=== PATIENT | male | born 1955 | race Caucasian/White ===

== ENCOUNTER 2018-12-22 10:00 | Outpatient (RCR) | payer OTHER, SELFPAY | END 2018-12-29 09:46 | LOC: CAR 10:00 | PROVIDERS: Family Provider Family Medicine; PCP Family Medicine; Visit Provider Internal Medicine | DX: Z95.5 Presence of coronary angioplasty implant and graft (principal) | CPT/HCPCS: 93798 ==

== ENCOUNTER 2019-04-02 12:16 | Emergency (ER) | payer OTHER, SELFPAY ==
[2019-04-02 12:26] VITALS: BP 111/68; PULSE 57; RESP 18; TEMP 36.4; O2SAT 100; BMI 23.1
[2019-04-02 13:05] LABS: Bacteria Urine None Seen
--- NOTE | 2019-04-02 13:07 | ED_ITS ---
HPI - Male Genitourinary <Litzy Rashid PA-C - Last Filed: 04/02/19 14:22> General Chief complaint: Urogenital-Male Stated complaint: UTI Time Seen by Provider: 04/02/19 12:46 Source: patient Mode of arrival: ambulatory Limitations: no limitations History of Present Illness HPI Narrative: This 64-year-old male comes to ED secondary to concern for recurrent UTI. He states he has had many of these and this feels the same. 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 He states he has had mild burning with urination for the last 2-3 days, but has had increased burning since last night especially at the end of the urinary stream. He has also had increased frequency and urgency since yesterday. He states he has felt a little achy all over, had some low back pain 2 nights ago but resolved after he slept with his back support pillow. He has not had any fever, chills, sweats. He has not had any nausea or vomiting. No hematuria. Denies abdominal pain or other new complaints on systems review. Related Data Home Medications Medication Instructions Recorded Confirmed FENOFIBRATE (TRICOR) 145 mg PO Q DAY #0 09/06/07 GlipiZIDE (Glucotrol) 5 mg PO Q DAY #0 09/06/07 Metformin Hydrochloride 1,000 mg PO BID #0 09/06/07 (Glucophage) Simvastatin (Zocor) 40 mg PO Q DAY #0 09/06/07 Previous Rx's Medication Instructions Recorded phenazopyridine [Pyridium] 200 mg PO Q8H PRN 2 Days #6 tab 04/02/19 sulfamethoxazole-trimethoprim 1 tab PO BID 5 Days #10 tab 04/02/19 [Bactrim DS] Allergies Allergy/AdvReac Type Severity Reaction Status Date / Time INGREDIENT: NKDA - NO KNOWN Allergy Unknown Uncoded 01/27/18 12:05 DRUG ALLERGIES Review of Systems <Litzy Rashid PA-C - Last Filed: 04/02/19 14:22> Review of Systems ROS Unobtainable: All systems reviewed & are unremarkable except as noted in HPI and below PFSH <Litzy Rashid PA-C - Last Filed: 04/02/19 14:22> Medical History (Updated 04/02/19 @ 13:19 by Litzy Rashid PA-C) CAD (coronary artery disease) (Chronic) Diabetes mellitus, insulin dependent (IDDM), controlled (Chronic) Recurrent UTI (Chronic) Surgical History (Updated 04/02/19 @ 13:07 by Litzy Rashid PA-C) History of heart artery stent (Resolved) Urethral diverticulum (Resolved) Social History Smoking Status: Never smoker Social History Smoking Status: Never smoker Exam <Litzy Rashid PA-C - Last Filed: 04/02/19 14:22> Narrative Exam Narrative: GENERAL APPEARANCE: Patient sitting comfortably, in no distress. HEENT: PERRL, EOMI, normal oropharynx LUNGS: Clear to auscultation bilaterally. HEART: Rate and rhythm regular without murmur, normal S1 and S2, no S3 or S4. ABDOMEN: Soft, NT, ND, +BS x 4 quadrants, no CVAT. Initial Vital Signs Initial Vital Signs: Vital Signs Temperature 97.5 F L 04/02/19 12:26 Pulse Rate 57 L 04/02/19 12:26 Respiratory Rate 18 04/02/19 12:26 Blood Pressure 111/68 04/02/19 12:26 Pulse Oximetry 100 04/02/19 12:26 <Walter Najera DO - Last Filed: 04/02/19 14:48> Initial Vital Signs Initial Vital Signs: Vital Signs Temperature 97.5 F L 04/02/19 12:26 Pulse Rate 57 L 04/02/19 12:26 Respiratory Rate 18 04/02/19 12:26 Blood Pressure 111/68 04/02/19 12:26 Pulse Oximetry 100 04/02/19 12:26 Course <Litzy Rashid PA-C - Last Filed: 04/02/19 14:22> Orders Ordered: ED Orders 04/02/19 12:48 Urine Culture Stat Urine Microscopic Stat Vital Signs - 8 hr 04/02/19 12:26 04/02/19 13:30 Temperature 97.5 F L Pulse Rate 57 L 51 L Respiratory Rate 18 15 Blood Pressure 111/68 Blood Pressure [Right Arm] 125/76 Pulse Oximetry 100 100 <Walter Najera DO - Last Filed: 04/02/19 14:48> Orders Ordered: ED Orders 04/02/19 12:48 Urine Culture Stat Urine Microscopic Stat Vital Signs - 8 hr 04/02/19 12:26 04/02/19 13:30 Temperature 97.5 F L Pulse Rate 57 L 51 L Respiratory Rate 18 15 Blood Pressure 111/68 Blood Pressure [Right Arm] 125/76 Pulse Oximetry 100 100 MDM - Male Genitourinary <Litzy Rashid PA-C - Last Filed: 04/02/19 14:22> Lab Data Attestation: I reviewed the patient's lab results. Lab Results 04/02/19 Range/Units 12:48 Urine RBC 10-30/hpf H (0-5/HPF) Urine WBC 30-100/hpf H (0-5/HPF) Ur Transition Epith Cell 1-5/hpf (0-5/HPF) Urine Bacteria None seen (None) Ur Culture Indicated? Specimen cultured Urine Dip Bedside Urine Glucose 100 mg/dl Bedside Urine Bilirubin - Negative Bedside Urine Ketone - Negative Urine Specific [place] 1.015 Bedside Urine Occult Blood +++ Bedside Urine pH 6.5 Bedside Urine Protein +/- 15 Bedside Urine Urobilinogen +/- 1mg Bedside Urine Nitrite - Negative Bedside Urine Leukocytes + 70 Esterase <Walter Najera DO - Last Filed: 04/02/19 14:48> Lab Data Lab Results 04/02/19 Range/Units 12:48 Urine RBC 10-30/hpf H (0-5/HPF) Urine WBC 30-100/hpf H (0-5/HPF) Ur Transition Epith Cell 1-5/hpf (0-5/HPF) Urine Bacteria None seen (None) Ur Culture Indicated? Specimen cultured Urine Dip Bedside Urine Glucose 100 mg/dl Bedside Urine Bilirubin - Negative Bedside Urine Ketone - Negative Urine Specific [place] 1.015 Bedside Urine Occult Blood +++ Bedside Urine pH 6.5 Bedside Urine Protein +/- 15 Bedside Urine Urobilinogen +/- 1mg Bedside Urine Nitrite - Negative Bedside Urine Leukocytes + 70 Esterase Discharge Plan Departure Patient Disposition: Home Clinical Impression: Urinary tract infection Qualifiers: Urinary tract infection type: acute cystitis Hematuria presence: without hematuria Qualified Code(s): N30.00 - Acute cystitis without hematuria Discharge Date/Time: 04/02/19 13:57 Interventions: ED Discharge Assessment Last Done: 04/02/19 13:55 Instructions: DI for Urinary Tract Infection (UTI) Activity Restrictions/Additional Instructions: As we talked about, you should return if you have acutely worsening symptoms over the weekend, or new symptoms such as fever, vomiting, or new back pain. 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 You can use the urinary tract pain reliever for the next couple of days as needed. Please follow-up with your PCP or urologist if you're not feeling better in the next couple of days Prescriptions: New phenazopyridine [Pyridium] 200 mg tablet 200 mg PO Q8H PRN (Reason: urinary pain) 2 Days Qty: 6 RF: 0 sulfamethoxazole-trimethoprim [Bactrim DS] 800-160 mg tablet 1 tab PO BID 5 Days Qty: 10 RF: 0 Discontinued TETRACYCLINE (TETRACYCLINE HYDROCHLORIDE) 250 mg PO Q DAY Qty: 0 RF: 0 No Action Metformin Hydrochloride (Glucophage) 1,000 mg PO BID Qty: 0 RF: 0 FENOFIBRATE (TRICOR) 145 mg PO Q DAY Qty: 0 RF: 0 Simvastatin (Zocor) 40 mg PO Q DAY Qty: 0 RF: 0 GlipiZIDE (Glucotrol) 5 mg PO Q DAY Qty: 0 RF: 0 Referrals: Stephanie Gusman MD [Non-Staff] - Francoise Hanna MD [Primary Care Provider] - <Walter Najera DO - Last Filed: 04/02/19 14:48> Cosign ED Attending Sabiha Attestation: I was available for consultation during this patient's emergency department encounter
[2019-04-02 13:13] LABS: Culture Indicated Urine Specimen Cultured; RBC Urine 10-30/HPF (0-5/HPF); Transitional Epi Cells Urine 1-5/HPF (0-5/HPF); WBC Urine 30-100/HPF (0-5/HPF)
[2019-04-02 13:30] VITALS: BP 125/76; PULSE 51; RESP 15; O2SAT 100
== END 2019-04-02 13:57 | disposition home or self-care (01) ==
PROVIDERS: Emergency Provider Internal Medicine; PCP Family Medicine
DX: N30.00 Acute cystitis without hematuria (principal)
CPT/HCPCS: 81003; 81015; 87077; 87086; 87186; 99282; 99283

== ENCOUNTER → 2019-07-13 12:07 | Outpatient (CLI) | payer OTHER, SELFPAY ==
--- NOTE | 2019-07-13 | DI.US.S_ITS ---
PROCEDURE: US RENAL COMPLETE INDICATIONS: DIVERTICULUM OF BLADDER TECHNIQUE: Real-time scanning was performed of the kidneys and bladder, with image documentation. COMPARISON: CT, ABD/PELVIS W&WO CON (PN[facility]), 03/02/2015, 12:31. FINDINGS: Kidneys: Kidneys are normal in size. Right kidney measures 10.7 cm long; left kidney measures 11.4 cm long. Right renal cortical thickness is 1.4 cm; left renal cortical thickness is 1.4 cm. Renal cortical echotexture is normal. No hydronephrosis or nephrolithiasis. No suspicious solid mass lesions. Bladder: Pre-void bladder volume is 60 mL. Post-void residual is 5 mL. Pre-void images demonstrate no intraluminal masses or stones. On pre-void images, right and left ureteral jets are noted with color Doppler interrogation. (Of note, ureteral jets may not be detectable in up to 25% of cases due to insufficient differences in specific gravity between ureteral and bladder urine). Miscellaneous: No free pelvic fluid. IMPRESSION: Normal appearance of the kidneys. No definitive bladder diverticulum seen. Dictated by: Jack PAINTING Interpreted: Rose Sylvester MD on 07/13/2019 at 12:53 Approved by: Rose Sylvester M.D. on 07/13/2019 at 13:48
== END ==
PROVIDERS: Family Provider Physician Assistant Medical; PCP Physician Assistant Medical; Visit Provider Urology
DX: N32.3 Diverticulum of bladder (principal); N39.0 Urinary tract infection, site not specified; Z82.71 Family history of polycystic kidney
CPT/HCPCS: 76770

== ENCOUNTER → 2019-10-27 06:41 | Outpatient (CLI) | payer OTHER, SELFPAY ==
--- NOTE | 2019-10-27 | DI.ECHO.S_ITS ---
[facility] +---------+ : : [address] : [place] : : : : [id number] : : : : Phone: [phone] Echocardiogram Report + + :Name: LOLITA TERRELL Study Date: 10/27/2019 Height: 70 in : :[facility] Weight: 165 lb : : Gender: Male BSA: 1.9 m2 : :: 1955 Age: 64 yrs BP: 118/76 mmHg: :Reason For Study: DYSPNEA : :Ordering Physician: Barbara : :Aba Performed By: Duarte Rueda : :Referring: BARBARA LÓPEZ : + + Interpretation Summary Left ventricular systolic function is mild to moderately reduced with the ejection fraction visually estimated to be 40-45% with mild global hypokinesis that is more severe in the mid and distal inferior septum, distal inferior wall and inferoapex, and mid to distal inferoposterior wall but this all appears to be unchanged from the previous study. Left ventricular size is at the upper limits of normal with the estimated left ventricular end diastolic volume being 127 ml but likely unchanged compared to the previous study. Diastolic parameters suggest probable normal left ventricular diastolic function and normal filling pressures. The right ventricle is normal in size and function. Pulmonary artery pressures cannot be estimated because of the lack of a measurable TR jet velocity but the IVC suggests a CVP of around 3 mmHg. The left atrium is mildly dilated while right atrial size is normal. Both atria have significantly decreased in size since the prior echo exam. There is mild mitral regurgitation that is unchanged compared to the previous study. There is no other significant valvular heart disease. The ascending aorta is mild-moderately enlarged and measures slightly larger compared to the previous study. Procedure: A two-dimensional transthoracic echocardiogram with color flow and Doppler was performed. The study quality was technically adequate. Prior echo performed on 11/19/15. A contrast injection of Definity was performed to improve assessment of LV function. The patient was in a bradycardic rhythm during the exam. The heart rate ranged between 48-70 bpm during the study. Left Ventricle: Left ventricular size is at the upper limits of normal. The estimated left ventricular end diastolic volume is 127 ml. This is unchanged compared to the previous study. There is borderline concentric left ventricular hypertrophy. Left ventricular systolic function is mild to moderately reduced. The ejection fraction is estimated to be 40-45%. There is mild global hypokinesis of the left ventricle. That is more severe in the mid and distal inferior septum, distal inferior wall and inferoapex, and mid to distal inferoposterior wall but this all appears to be unchanged from the previous study. Diastolic parameters suggest probable normal left ventricular diastolic function and normal filling pressures. Right Ventricle: The right ventricle is normal in size and function. This is unchanged compared to the previous study. Atria: The left atrium is mildly dilated. Both atria have significantly decreased in size since the prior echo exam. Right atrial size is normal. The interatrial septum is intact with no evidence for an atrial septal defect. Mitral Valve: There is mild mitral annular calcification. The mitral valve leaflets appear mildly thickened, but open well. There is mild mitral regurgitation. This is unchanged compared to the previous study. Aortic Valve: The aortic valve is trileaflet. The aortic valve opens well. No aortic regurgitation is present. Tricuspid Valve: The tricuspid valve is normal in structure and function. There is trace tricuspid regurgitation. Pulmonary artery pressures cannot be estimated because of the lack of a measurable TR jet velocity but the IVC suggests a CVP of around 3 mmHg. Pulmonic Valve: The pulmonic valve is normal in structure and function. There is trace pulmonic regurgitation. There is no other significant valvular heart disease. Great Vessels: The aortic root is mildly dilated. The ascending aorta is mild-moderately enlarged. This is slightly larger compared to the previous study. The pulmonary artery is normal size. The IVC is of normal diameter and collapses greater than 50% with a sniff. This suggests a low right atrial pressure of 3 mm Hg. Pericardium/ Pleura There is no pericardial effusion. There is no pleural effusion. MMode/2D Measurements & Calculations LVIDd: 5.1 cm LVOT diam: 2.1 cm LVIDs: 3.8 cm Ao root diam: 3.7 cm FS: 25.1 % Aortic Jxn: 3.8 cm EPSS: 0.78 cm asc Aorta Diam: 4.2 cm IVSd: 0.96 cm LVPWd: 1.2 cm LV schwartz. diameter/BSA (cm/m^2): 2.6 LV sys. diameter/BSA (cm/m^2): 2.0 LA A2 area: 21.1 cm2 RA long axis: 4.7 cm LA A4 area: 21.9 cm2 RA area: 12.7 cm2 LA length (vol): 5.5 cm RA vol: 29.1 ml LA vol: 71.5 ml RA : 15.1 ml/m2 LA vol index: 37.2 ml/m2 TAPSE: 2.6 cm Doppler Measurements & Calculations Ao V2 max: 86.0 cm/sec LVOT Max Hermes: 67.3 cm/sec Ao V2 mean: 63.2 cm/sec LV V1 max P.8 mmHg Ao max P.0 mmHg LV V1 VTI: 16.2 cm Ao mean P.8 mmHg VENITA(I,D): 2.7 cm2 Ao V2 VTI: 21.0 cm VENITA(V,D): 2.8 cm2 sev ratio: 0.77 VENITA indexed to BSA (cm^2/m^2): 1.4 MV E max hermes: 81.5 cm/sec TR max hermes: 189.0 cm/sec MV A max hermes: 63.9 cm/sec TR max P.3 mmHg MV E/A: 1.3 PA V2 max: 75.9 cm/sec Med Peak E' Hermes: 9.3 cm/sec PA V2 mean: 57.9 cm/sec E/E' med: 8.8 PA mean P.5 mmHg Lat Peak E' Hermes: 7.5 cm/sec PA Accel Time: 0.16 sec E/E' lat: 10.9 E/e' average: 9.8 MV dec time: 0.22 sec SV(LVOT): 57.7 ml Reading Physician:SHERYL
== END ==
PROVIDERS: Family Provider Physician Assistant Medical; PCP Physician Assistant Medical; Visit Provider Specialist
DX: I34.0 Nonrheumatic mitral (valve) insufficiency (principal); I77.89 Other specified disorders of arteries and arterioles; R06.00 Dyspnea, unspecified
CPT/HCPCS: 93306; Q9957

== ENCOUNTER → 2021-02-26 16:28 | Outpatient (CLI) | payer MEDICARE, OTHER, SELFPAY ==
--- NOTE | 2021-02-26 | DI.RAD.S_ITS ---
PROCEDURE: XR HIP W PEL IF DONE LT 2V INDICATIONS: Left Hip Pain TECHNIQUE: AP pelvis with lateral view(s) of the left hip(s). COMPARISON: None. FINDINGS: Bones: No fractures or dislocations. Pelvic ring appears intact. No suspicious bony lesions. Mild bilateral hip osteoarthritis. Mild lumbar spondylosis and facet arthropathy. Soft tissues: Scattered vascular calcifications. IMPRESSION: Mild bilateral hip osteoarthritis Dictated by: Vini Long M.D. on 02/26/2021 at 17:37 Approved by: Vini Long M.D. on 02/26/2021 at 17:38
== END ==
PROVIDERS: Family Provider Physician Assistant Medical; PCP Internal Medicine; Referring Provider Internal Medicine; Visit Provider Internal Medicine
DX: M25.552 Pain in left hip (principal); M16.0 Bilateral primary osteoarthritis of hip; E78.5 Hyperlipidemia, unspecified; I25.10 Atherosclerotic heart disease of native coronary artery without angina pectoris
CPT/HCPCS: 73502; 80053; 80061; 84443; 85025

== ENCOUNTER → 2021-02-26 19:21 | Outpatient (ROUT) | payer MEDICARE, OTHER, SELFPAY ==
[2021-02-26 19:33] LABS: Add Manual Diff / Slide Review NO; Basophils Absolute Auto 0 /uL (0-100); Basophils Percent Auto 0.5 % (0-2); Eosinophils Absolute Auto 200 /uL (0-450); Eosinophils Percent Auto 3.9 % (2-4); Hematocrit 44.2 % (41-53); Hemoglobin 15.3 g/dL (13.5-17.5); Lymphocytes Absolute Auto 1100 /uL (1100-4500); Lymphocytes Percent Auto 18.2 % (25-40); Mean Corpuscular HGB Conc 34.5 % (30-36); Mean Corpuscular Hemoglobin 30.6 PG (26-34); Mean Corpuscular Volume 88.7 fL (80-100); Monocytes Absolute Auto 500 /uL (0-900); Monocytes Percent Auto 7.3 % (3-14); Neutrophils Absolute Auto 4400 /uL (1500-7000); Neutrophils Percent Auto 70.1 % (50-75); Platelet Count 183 X10^3/uL (150-400); Red Blood Cell Count 4.98 X10^6/uL (4.5-5.9); Red Cell Distribution Width 13.5 % (11.6-14.8); White Blood Cell Count 6.2 X10^3/uL (4.5-11.0)
[2021-02-26 19:49] LABS: Alanine Aminotransferase 30 IU/L (<50); Albumin 3.7 g/dL (3.5-5.0); Albumin Globulin Ratio 1.7 (1.0-2.8); Alkaline Phosphatase 60 U/L (38-126); Aspartate Aminotransferase 31 IU/L (17-59); BUN Creatinine Ratio 17.4 (6-22); Bilirubin Total 0.6 mg/dL (0.2-1.3); Blood Urea Nitrogen 15 mg/dL (9-20); Calcium 9.4 mg/dL (8.4-10.2); Carbon Dioxide 27 mmol/L (22-32); Chloride 99 mmol/L (98-107); Cholesterol 97 mg/dL (140-199); Estimated Glomerular Filt Rate > 60.0 mL/min (>60); Globulin 2.2 g/dL (1.7-4.1); Glucose 166 mg/dL (80-110); HDL Cholesterol 48 mg/dL (40-60); HEMOLYSIS < 15 (0-50); LDL Cholesterol Calculated 38 mg/dL (<100); Potassium 4.3 mmol/L (3.4-5.1); Sodium 133 mmol/L (137-145); Total Protein 5.9 g/dL (6.3-8.2); Triglycerides 55 mg/dL (35-150)
[2021-02-26 20:17] LABS: TSH w/ Reflex to FT4 3.63 uIU/mL (0.47-4.68)
== END ==
PROVIDERS: Family Provider Physician Assistant Medical; PCP Internal Medicine; Visit Provider Internal Medicine
DX: E78.2 Mixed hyperlipidemia (principal); I25.10 Atherosclerotic heart disease of native coronary artery without angina pectoris
CPT/HCPCS: 80053; 80061; 84443; 85025

== ENCOUNTER → 2022-09-02 15:33 | Outpatient (CLI) | payer MEDICARE, OTHER, SELFPAY ==
--- NOTE | 2022-09-02 15:36 | DI.RAD.S_ITS ---
PROCEDURE: XR WRIST RT MIN 3V INDICATIONS: right wrist pain TECHNIQUE: 4 views of the wrist were acquired. COMPARISON: None. FINDINGS: Bones: No fractures or dislocations. No suspicious bony lesions. Scaphoid view: Scaphoid is intact. Soft tissues: No suspicious soft tissue calcifications. IMPRESSION: No fracture. No acute osseous lesion. If symptoms and/or clinical suspicion for pathology persists, further assessment with repeat radiographs (7-10 days) or advanced imaging (e.g. CT, MRI or bone scan) should be considered. Dictated by: Barby Parks MD, PhD on 09/02/2022 at 16:50 Approved by: Barby Parks MD, PhD on 09/02/2022 at 16:50
== END ==
PROVIDERS: Family Provider Physician Assistant Medical; PCP Physician Assistant; Referring Provider Physician Assistant; Visit Provider Physician Assistant
DX: M25.531 Pain in right wrist (principal)
CPT/HCPCS: 73110

== ENCOUNTER 2022-09-08 13:34 | Emergency (ER) | payer MEDICARE, OTHER, SELFPAY ==
[2022-09-08] VITALS (13 sets, daily range): BP systolic 119–140; BP diastolic 62–77; PULSE 69–90; RESP 12–23; TEMP 36.9; O2SAT 99–100
--- NOTE | 2022-09-08 13:36 | DI.RAD.S_ITS ---
PROCEDURE: XR CHEST 1V INDICATIONS: chest pain TECHNIQUE: One view of the chest was acquired. COMPARISON: [facility], , CHEST 1 VIEW, 09/06/2007, 9:22. FINDINGS: Surgical changes and devices: None. Lungs and pleura: Lungs are clear. No pleural effusions or pneumothorax. Mediastinum: Mediastinal contours appear normal. Heart size is normal. Bones and chest wall: No suspicious bony lesions. Overlying soft tissues appear unremarkable. IMPRESSION: No acute pulmonary process. Dictated by: Rose Sylvester M.D. on 09/08/2022 at 14:35 Approved by: Rose Sylvester M.D. on 09/08/2022 at 14:35
[2022-09-08 14:19] LABS: INR 1.1 (0.9-1.3); Prothrombin Time 12.9 SECONDS (10.1-12.7)
[2022-09-08 14:22] LABS: PTT Partial Thromboplastin Tim 28 SECONDS (26-36)
[2022-09-08 14:26] LABS: Add Manual Diff / Slide Review NO; Basophils Absolute Auto 0 /uL (0-100); Basophils Percent Auto 0.4 % (0-2); Eosinophils Absolute Auto 200 /uL (0-450); Eosinophils Percent Auto 4.1 % (2-4); Hematocrit 35.1 % (41-53); Hemoglobin 11.5 g/dL (13.5-17.5); Lymphocytes Absolute Auto 500 /uL (1100-4500); Lymphocytes Percent Auto 11.2 % (25-40); Mean Corpuscular HGB Conc 32.7 % (30-36); Mean Corpuscular Hemoglobin 25.7 PG (26-34); Mean Corpuscular Volume 78.5 fL (80-100); Monocytes Absolute Auto 400 /uL (0-900); Monocytes Percent Auto 8.7 % (3-14); Neutrophils Absolute Auto 3200 /uL (1500-7000); Neutrophils Percent Auto 75.6 % (50-75); Platelet Count 220 X10^3/uL (150-400); Red Blood Cell Count 4.46 X10^6/uL (4.5-5.9); White Blood Cell Count 4.2 X10^3/uL (4.5-11.0)
[2022-09-08 15:02] LABS: Influenza A - CEPHEID Flu A NEGATIVE (NEGATIVE); Influenza B - CEPHEID Flu B NEGATIVE (NEGATIVE); Respiratory Syncytial Virus Negative (Negative)
[2022-09-08 15:05] LABS: COVID-19 CEPHEID 4-PLEX PCR Negative (Negative)
--- NOTE | 2022-09-08 15:16 | ED_ITS ---
HPI - Syncope General Chief Complaint: Syncope Stated Complaint: dizzy, low BP, diabetic Time Seen by Provider: 09/08/22 15:16 History of Present Illness HPI narrative: This is a 67-year-old male with coronary artery disease with 5 cardiac stents, 2 stents in his lower extremities, diabetes, hypertension, dyslipidemia with recent 13 day hospitalization at [place] after having medical misadventure and having perforated his vessels in his lower extremity causing significant bleeding and resulting in bilateral femoral artery endarterectomy, patch angioplasties, left popliteal and tibial embolectomy, left superficial femoral artery to below knee popliteal artery bypass with ipsilateral 1st great saphenous vein and left lower leg 4 compartment fasciotomy patient also had right common femoral artery and perforation of the popliteal artery of his left lower extremity and repair on the right thigh of his vasculature. Patient was discharged home to rehab and has been home for a couple weeks. He had his COVID and flu shot on Thursday this weekend. He states today when physical therapy was doing their evaluation they checked his vitals he was 92 systolic while seated and stood him up and he was 82 systolic and became dizzy. Patient did not have any syncope he has felt a little bit dizzy when he is walking today but has not had felt like he is going to pass out. This is new for him. Denies fevers or chills, no chest pain or shortness of breath, no nausea or vomiting, no diarrhea or constipation denies any bright red blood or black stools. He is noticed that he needs to get up multiple times at night to urinate and sometimes has hard time making it to the bathroom. He states this has been since he had a catheter in place during his hospitalization. He denies any skin changes he states his incisions have been healing well. Patient states no new medication c hanges since his discharge. No new surgeries since his hospitalizations his stents in his legs are from prior and not his most recent hospitalization. Related Data Home Medications Medication Instructions Recorded Confirmed FENOFIBRATE (TRICOR) 145 mg PO Q DAY ##0 09/06/07 10/06/21 GlipiZIDE (Glucotrol) 5 mg PO Q DAY ##0 09/06/07 10/06/21 Metformin Hydrochloride 1,000 mg PO BID ##0 09/06/07 10/06/21 (Glucophage) Simvastatin (Zocor) 40 mg PO Q DAY ##0 09/06/07 10/06/21 cyanocobalamin (vitamin B-12) 1,000 mcg PO DAILY 10/06/21 10/06/21 1,000 mcg capsule nitroglycerin 0.4 mg sublingual 0.4 mg sublingual Q5M PRN 10/06/21 10/06/21 tablet (Nitrostat) Previous Rx's Medication Instructions Recorded terbinafine HCl 1 % topical cream 1 applic topical BID rash 2 weeks 10/06/21 #30 grams Allergies Allergy/AdvReac Type Severity Reaction Status Date / Time levofloxacin AdvReac Severe Hallucinati Verified 10/06/21 15:22 ng clindamycin AdvReac Intermediate Rash Verified 10/06/21 15:22 spironolactone AdvReac Intermediate rash Verified 10/06/21 15:22 memantine AdvReac liver Verified 10/06/21 15:22 function abnormalities INGREDIENT: NKDA - NO KNOWN Allergy Unknown Uncoded 10/06/21 15:22 DRUG ALLERGIES Review of Systems Review of Systems ROS Unobtainable: All systems reviewed & are unremarkable except as noted in HPI and below Patient History Medical History CAD (coronary artery disease) Diabetes mellitus, insulin dependent (IDDM), controlled Recurrent UTI Surgical History History of heart artery stent Urethral diverticulum Social History Smoking Status: Never smoker Smoking Status: Never smoker alcohol intake frequency: a few times a week Substance Use Type: does not use Exam Narrative Exam Narrative: GENERAL: Alert and oriented x three, mild distress. HEENT: Head normocephalic, atraumatic, EOMI, pupils reactive, face symmetric, moist mucous membranes NECK: Supple, full range of motion CARDIOVASCULAR: Regular rate and rhythm without murmurs, rubs or gallops. RESPIRATORY: Breath sounds equal bilaterally, no wheezes rales or rhonchi. ABDOMEN: Soft, nontender. Not distended. Normoactive bowel sounds all 4 quadrants. No guarding or rebound, rigidity, no mass : No CVA tenderness EXTREMITIES: Normal range of motion, no clubbing or edema. Neurovascularly intact. Patient has left healed incision down to the calf muscle which is clean dry and intact without any signs of infection, patient has right upper thigh incision/inguinal which is clean dry and intact without any signs of infection. Patient has 5/5 muscle strength, normal sensation to light touch. Full range of motion. Patient ambulate in the room on around the department without issue. NEUROLOGICAL: Cranial nerves II through XII grossly intact. Moving all extremities SKIN: Warm, dry, no petechiae, no rashes or lesions. Initial Vital Signs Initial Vital Signs: Vital Signs Pulse Rate 83 09/08/22 13:52 Respiratory Rate 19 09/08/22 13:52 Pulse Oximetry 100 09/08/22 13:52 Course Orders Ordered: ED Orders 09/08/22 13:36 XR chest 1V Stat 09/08/22 13:54 BNP [NT-proBNP (BNP-Adult 18+)] Stat Complete Blood Count AUTO DIFF Stat Comprehensive Metabolic Panel Stat Lipase Stat Magnesium Stat Partial Thromboplastin Time Stat Prothrombin Time INR Stat Troponin & CK Cardiac Panel Stat 09/08/22 14:00 Covid-19 + FLU A/B + RSV - PCR Stat 09/08/22 14:01 EKG-12 Lead Stat 09/08/22 15:56 Urine Microscopic Stat Vital Signs Vital signs: Vital Signs - 8 hr 09/08/22 14:05 09/08/22 13:52 09/08/22 13:57 Temperature 98.4 F Pulse Rate 84 83 82 Respiratory Rate 18 19 23 Blood Pressure 128/70 Pulse Oximetry 100 100 100 Oxygen Delivery Method Room Air 09/08/22 13:57 09/08/22 14:00 09/08/22 14:00 Temperature Pulse Rate 84 Respiratory Rate 12 Blood Pressure 125/74 136/76 Pulse Oximetry 100 Oxygen Delivery Method 09/08/22 14:15 09/08/22 14:15 09/08/22 14:30 Temperature Pulse Rate 77 Respiratory Rate Blood Pressure 132/69 140/77 Pulse Oximetry 100 Oxygen Delivery Method 09/08/22 14:30 09/08/22 16:00 09/08/22 14:45 Temperature Pulse Rate 72 90 78 Respiratory Rate 13 16 18 Blood Pressure 119/77 Pulse Oximetry 100 99 100 Oxygen Delivery Method Room Air 09/08/22 14:45 09/08/22 15:00 09/08/22 15:00 Temperature Pulse Rate 71 Respiratory Rate 15 Blood Pressure 128/62 119/68 Pulse Oximetry 100 Oxygen Delivery Method 09/08/22 15:15 09/08/22 15:15 09/08/22 15:30 Temperature Pulse Rate 69 Respiratory Rate 21 Blood Pressure 120/70 133/69 Pulse Oximetry 100 Oxygen Delivery Method 09/08/22 15:30 09/08/22 15:45 09/08/22 15:45 Temperature Pulse Rate 81 71 Respiratory Rate 15 Blood Pressure 121/67 Pulse Oximetry 99 100 Oxygen Delivery Method 09/08/22 15:58 09/08/22 15:58 Temperature Pulse Rate 89 Respiratory Rate Blood Pressure 119/77 Pulse Oximetry Oxygen Delivery Method MDM - Syncope Lab Data Result diagrams: 09/08/22 13:54 09/08/22 13:54 Labs: Lab Results 09/08/22 09/08/22 09/08/22 Range/Units 13:54 13:54 13:54 WBC 4.2 L (4.5-11.0) X10^3/uL RBC 4.46 L (4.5-5.9) X10^6/uL Hgb 11.5 L (13.5-17.5) g/dL Hct 35.1 L (41-53) % MCV 78.5 L (80-100) fL MCH 25.7 L (26-34) PG MCHC 32.7 (30-36) % RDW 17.0 H (11.6-14.8) % Plt Count 220 (150-400) X10^3/uL Neut % (Auto) 75.6 H (50-75) % Lymph % (Auto) 11.2 L (25-40) % Griggs % (Auto) 8.7 (3-14) % Eos % (Auto) 4.1 H (2-4) % Baso % (Auto) 0.4 (0-2) % Neut # (Auto) 3200 (9815-9523) /uL Lymph # (Auto) 500 L (7866-6159) /uL Griggs # (Auto) 400 (0-900) /uL Eos # (Auto) 200 (0-450) /uL Baso # (Auto) 0 (0-100) /uL PT 12.9 H (10.1-12.7) SECONDS INR 1.1 (0.9-1.3) APTT 28 (26-36) SECONDS Sodium 135 L (137-145) mmol/L Potassium 3.8 (3.4-5.1) mmol/L Chloride 98 (98-107) mmol/L Carbon Dioxide 29 (22-32) mmol/L BUN 14 (9-20) mg/dL Creatinine 0.81 (0.66-1.25) mg/dL Estimated GFR > 60 (>60) mL/min BUN/Creatinine Ratio 17.3 (6-22) Glucose 126 H (80-110) mg/dL Calcium 8.4 (8.4-10.2) mg/dL Magnesium 1.9 (1.6-2.3) mg/dL Total Bilirubin 0.3 (0.2-1.3) mg/dL AST 26 (17-59) IU/L ALT 21 (<50) IU/L Alkaline Phosphatase 55 (38-126) U/L Total Creatine Kinase 26 L (55-170) U/L CK-MB (CK-2) TNP CK-MB (CK-2) Rel Index TNP Troponin I < 0.012 (0.01-0.034) ng/mL NT-Pro-B Natriuret Pep 142 H (<125) pg/mL Total Protein 5.5 L (6.3-8.2) g/dL Albumin 3.3 L (3.5-5.0) g/dL Globulin 2.2 (1.7-4.1) g/dL Albumin/Globulin Ratio 1.5 (1.0-2.8) Lipase 250 (23-300) U/L Urine RBC (0-5/HPF) Urine WBC (0-5/HPF) Ur Squamous Epith Cells (0-5/HPF) Urine Bacteria (None) Ur Culture Indicated? SARS-CoV-2 (PCR) (Negative) Influenza A (RT-PCR) (NEGATIVE) Influenza B (RT-PCR) (NEGATIVE) RSV (PCR) (Negative) 09/08/22 09/08/22 Range/Units 14:00 15:56 WBC (4.5-11.0) X10^3/uL RBC (4.5-5.9) X10^6/uL Hgb (13.5-17.5) g/dL Hct (41-53) % MCV (80-100) fL MCH (26-34) PG MCHC (30-36) % RDW (11.6-14.8) % Plt Count (150-400) X10^3/uL Neut % (Auto) (50-75) % Lymph % (Auto) (25-40) % Griggs % (Auto) (3-14) % Eos % (Auto) (2-4) % Baso % (Auto) (0-2) % Neut # (Auto) (5377-2972) /uL Lymph # (Auto) (2036-5366) /uL Griggs # (Auto) (0-900) /uL Eos # (Auto) (0-450) /uL Baso # (Auto) (0-100) /uL PT (10.1-12.7) SECONDS INR (0.9-1.3) APTT (26-36) SECONDS Sodium (137-145) mmol/L Potassium (3.4-5.1) mmol/L Chloride (98-107) mmol/L Carbon Dioxide (22-32) mmol/L BUN (9-20) mg/dL Creatinine (0.66-1.25) mg/dL Estimated GFR (>60) mL/min BUN/Creatinine Ratio (6-22) Glucose (80-110) mg/dL Calcium (8.4-10.2) mg/dL Magnesium (1.6-2.3) mg/dL Total Bilirubin (0.2-1.3) mg/dL AST (17-59) IU/L ALT (<50) IU/L Alkaline Phosphatase (38-126) U/L Total Creatine Kinase (55-170) U/L CK-MB (CK-2) CK-MB (CK-2) Rel Index Troponin I (0.01-0.034) ng/mL NT-Pro-B Natriuret Pep (<125) pg/mL Total Protein (6.3-8.2) g/dL Albumin (3.5-5.0) g/dL Globulin (1.7-4.1) g/dL Albumin/Globulin Ratio (1.0-2.8) Lipase (23-300) U/L Urine RBC None seen (0-5/HPF) Urine WBC 0-1/hpf (0-5/HPF) Ur Squamous Epith Cells 0-1 /hpf (0-5/HPF) Urine Bacteria None seen (None) Ur Culture Indicated? Cult not indicated SARS-CoV-2 (PCR) Negative (Negative) Influenza A (RT-PCR) Flu a negative (NEGATIVE) Influenza B (RT-PCR) Flu b negative (NEGATIVE) RSV (PCR) Negative (Negative) Urine Dip Bedside Urine Glucose 1000 mg/dl Bedside Urine Bilirubin - Negative Bedside Urine Ketone - Negative Urine Specific Dale 1.010 Bedside Urine Occult Blood - Negative Bedside Urine pH 5.5 Bedside Urine Protein - Negative Bedside Urine Urobilinogen - Negative Bedside Urine Nitrite - Negative Bedside Urine Leukocytes - Negative Esterase Imaging Data Chest x-ray: Radiologist's Impression: Sunny Lock??67??M??1955 ? Allergy/Adv: levofloxacin, clindamycin, spironolactone, memantine, [INGREDIENT: NKDA - NO KNOWN DRUG ALLERGIES] (More??) Close Chest X-Ray (Signed) Rose Sylvester - 09/08/22 Wrist X-Ray (Signed) Barby Parks - 09/02/22 Hip X-Ray (Signed) Vini Long - 02/26/21 Hip X-Ray (Cancelled) 02/26/21 Echocardiogram Ultrasound (Signed) Hitesh Troncoso - 10/27/19 Renal Ultrasound (Signed) Rose Sylvester - 07/13/19 [place] [address] XRay Report Signed Patient: Sunny Lock MR#: [id number] : 1955 Acct:[id number] Age/Sex: 67 / M Date of Service: 09/08/22 Loc: ED Accession Number: [id number] ?? Procedure: XR chest 1V Ordering Provider: Estrellita White D.O. PROCEDURE:? XR CHEST 1V ? INDICATIONS:? chest pain ? TECHNIQUE:? One view of the chest was acquired.? ? COMPARISON:? [facility], CHEST 1 VIEW, 09/06/2007, 9:22. ? FINDINGS:? ? Surgical changes and devices:? None.? ? Lungs and pleura:? Lungs are clear.? No pleural effusions or pneumothorax.? ? Mediastinum:? Mediastinal contours appear normal.? Heart size is normal.? ? Bones and chest wall:? No suspicious bony lesions.? Overlying soft tissues appear unremarkable.? ? IMPRESSION:? No acute pulmonary process. ? ? Dictated by: Rose Sylvester M.D. on 09/08/2022 at 14:35 ? ? Approved by: Rose Sylvester M.D. on 09/08/2022 at 14:35?? ECG Data Attestation: I personally reviewed and interpreted this ECG as follows: Interpretation: Sinus rhythm rate of 78 [place] 146 QRS of 138 QTC of 478. Right bundle-branch block possible MDM Narrative Medical decision making narrative: This is a 67-year-old male who presents with dizziness, he saw PT at home they noted his blood pressure was 90 seated and 82 standing, he felt dizzy and was sent here. His labs show anemia but he had a significant surgery on 07/25/2022 for complications from perforation of his bilateral femoral arteries and popliteal that resulted in fasciotomy and left femoral artery to below-knee popliteal artery bypass, patient does not appear septic today he received fluids and blood pressures have been appropriate. Did get his COVID/influenza shot about 2 days ago. He has been afebrile, he does not have any changes consistent with pulmonary emboli, infection, his labs show white count of 4.2 patient's white count was 16 on 07/25/2022, hemoglobin of 11 and was 10.5 on 07/25/2022 after what appears to be transfusion it was 7.8 prior to transfusion on 07/25/2022 and platelets of 220, sodium is 135, normal electrolytes and renal function with negative trope, BNP of 142 and no LFT changes. Patient is ambulating department without any hypotension, he feels improved. Urine did not show clear infection nor did urine micro although he had some nocturia that is new after having Coker catheter in the hospital. I feel patient is appropriate for discharge home at this time, return precautions were given. Discharge Plan Departure Patient Disposition: Home Clinical Impression: Dizziness Instructions: DI for Dizziness-Nonvertigo Activity Restrictions/Additional Instructions: Please follow-up with your physician for recheck. Your labs show anemia but no clear changes otherwise. Your hemoglobin today is 11.5 Please return for recurrent lightheadedness, passing out, new chest pain or shortness of breath, new swelling in your extremities, fevers, signs of infection at your wounds or worsening urinary symptoms. Prescriptions: No Action nitroglycerin [Nitrostat] 0.4 mg tablet, sublingual 0.4 mg sublingual Q5M PRN Rx Instructions: do not exceed 3 doses per episode terbinafine HCl 1 % cream 1 applic topical BID 14 Days Qty: 30 1RF Rx Instructions: Use for 2 weeks or until rash resolves. cyanocobalamin (vitamin B-12) 1,000 mcg capsule 1,000 mcg PO DAILY Metformin Hydrochloride (Glucophage) 1,000 mg PO BID Qty: 0 FENOFIBRATE (TRICOR) 145 mg PO Q DAY Qty: 0 Simvastatin (Zocor) 40 mg PO Q DAY Qty: 0 GlipiZIDE (Glucotrol) 5 mg PO Q DAY Qty: 0 Referrals: Suze Reyes PA-C [Primary Care Provider] - Visit Report Forms: Patient Portal/API
[2022-09-08 15:24] LABS: HEMOLYSIS < 15 (0-50)
[2022-09-08 15:34] LABS: Alanine Aminotransferase 21 IU/L (<50); Albumin 3.3 g/dL (3.5-5.0); Albumin Globulin Ratio 1.5 (1.0-2.8); Alkaline Phosphatase 55 U/L (38-126); Aspartate Aminotransferase 26 IU/L (17-59); BUN Creatinine Ratio 17.3 (6-22); Bilirubin Total 0.3 mg/dL (0.2-1.3); Blood Urea Nitrogen 14 mg/dL (9-20); Calcium 8.4 mg/dL (8.4-10.2); Carbon Dioxide 29 mmol/L (22-32); Chloride 98 mmol/L (98-107); Creatine Kinase 26 U/L (55-170); Estimated Glomerular Filt Rate > 60 mL/min (>60); Globulin 2.2 g/dL (1.7-4.1); Glucose 126 mg/dL (80-110); Lipase 250 U/L (23-300); Magnesium 1.9 mg/dL (1.6-2.3); Potassium 3.8 mmol/L (3.4-5.1); Sodium 135 mmol/L (137-145); Total Protein 5.5 g/dL (6.3-8.2)
[2022-09-08 15:41] LABS: NT-proBNP (BNP-Adult 18+) 142 pg/mL (<125); Troponin I < 0.012 ng/mL (0.01-0.034)
--- NOTE | 2022-09-08 16:06 | PC.NURSE ---
patient ambulated well, complains of leg pain which is at a normal level due to his recent surgery and recovery.
[2022-09-08 16:22] LABS: Bacteria Urine None Seen; Culture Indicated Urine Cult Not Indicated; RBC Urine None Seen (0-5/HPF); Squamous Epithelial Cell Urine 0-1 /HPF (0-5/HPF); WBC Urine 0-1/HPF (0-5/HPF)
== END 2022-09-08 16:35 | disposition home or self-care (01) ==
PROVIDERS: Emergency Provider Emergency Medicine; Family Provider Physician Assistant Medical; PCP Physician Assistant
DX: R42 Dizziness and giddiness (principal); R07.9 Chest pain, unspecified; I95.9 Hypotension, unspecified; Z20.822 Contact with and (suspected) exposure to COVID-19
CPT/HCPCS: 0241U; 36415; 71045; 80053; 81003; 81015; 82550; 83690; 83735; 83880; 84484; 85025; 85610; 85730; 93005; 99284

== ENCOUNTER → 2022-11-24 09:40 | Outpatient (CLI) | payer MEDICARE, OTHER, SELFPAY ==
[2022-11-24 10:56] LABS: Add Manual Diff / Slide Review NO; Basophils Absolute Auto 0 /uL (0-100); Basophils Percent Auto 0.5 % (0-2); Eosinophils Absolute Auto 200 /uL (0-450); Eosinophils Percent Auto 2.6 % (2-4); Hematocrit 39.5 % (41-53); Hemoglobin 12.9 g/dL (13.5-17.5); Lymphocytes Absolute Auto 1200 /uL (1100-4500); Lymphocytes Percent Auto 17.8 % (25-40); Mean Corpuscular HGB Conc 32.6 % (30-36); Mean Corpuscular Hemoglobin 23.7 PG (26-34); Mean Corpuscular Volume 72.8 fL (80-100); Monocytes Absolute Auto 400 /uL (0-900); Monocytes Percent Auto 6.2 % (3-14); Neutrophils Absolute Auto 4800 /uL (1500-7000); Neutrophils Percent Auto 72.9 % (50-75); Platelet Count 212 X10^3/uL (150-400); Red Blood Cell Count 5.43 X10^6/uL (4.5-5.9); Red Cell Distribution Width 20.6 % (11.6-14.8); White Blood Cell Count 6.6 X10^3/uL (4.5-11.0)
[2022-11-24 11:33] LABS: HEMOLYSIS < 15 (0-50); Iron 62 ug/dL (49-181)
[2022-11-24 11:45] LABS: Percent Iron Saturation 17 % (20-50); Total Iron Binding Capacity 373 ug/dL (261-462)
[2022-11-24 11:46] LABS: Transferrin 277 mg/dL (206-381)
[2022-11-24 12:09] LABS: Ferritin 9 ng/mL (18-464)
[2022-11-24 12:40] LABS: Hypochromasia 1+; Microcytosis 1+
== END ==
PROVIDERS: Family Provider Physician Assistant Medical; PCP Family Medicine; Referring Provider Family Medicine; Visit Provider Family Medicine
DX: D50.9 Iron deficiency anemia, unspecified (principal)
CPT/HCPCS: 36415; 82728; 83540; 83550; 85025

== ENCOUNTER 2023-01-03 16:57 | Emergency (ER) | payer MEDICARE, OTHER, SELFPAY ==
[2023-01-03] VITALS (21 sets, daily range): BP systolic 110–136; BP diastolic 56–72; PULSE 46–104; RESP 16; TEMP 36.4; O2SAT 96–100; BMI 22.2
[2023-01-03 17:40] LABS: Amorphous Sediment Urine 1+; Bacteria Urine Few (2-10); Mucus Urine 1+ (Negative); RBC Urine 0-1/HPF (0-5/HPF); Squamous Epithelial Cell Urine 0-1 /HPF (0-5/HPF); WBC Urine 10-30/HPF (0-5/HPF)
--- NOTE | 2023-01-03 19:02 | ED.MALEGU ---
HPI - Male Genitourinary General Chief complaint: Urogenital-Male Stated complaint: uti/cannot control bowels/urine x3 days Time Seen by Provider: 01/03/23 17:28 History of Present Illness HPI Narrative: 67-year-old male nonsmoker with rather extensive medical history including peripheral vascular disease, coronary artery disease, hypertension, hyperlipidemia, diabetes presents with his in the chief complaint of a few days of dysuria, frequency and urgency with the occasional sensation that he has lost control of his bladder, though admittedly it is unclear if he is lost control or just has significant urgency. Additionally he is had loose stools off and on for the past few days. He is not dizzy nor weak or lightheaded but does feel somewhat fatigued. He has had nausea but denies any vomiting. He denies chest pain or shortness of breath. He denies abdominal pain. He does state that ever since a complex vascular surgery he had last year he has lost about 20 lb. He denies any recent antibiotics, international travel, bad food or exposure to other ill persons Related Data Home Medications Medication Instructions Recorded Confirmed cyanocobalamin (vitamin B-12) 1,000 mcg PO DAILY 10/06/21 11/24/22 1,000 mcg capsule nitroglycerin 0.4 mg sublingual 0.4 mg sublingual Q5M PRN 10/06/21 11/24/22 tablet (Nitrostat) aspirin 81 mg tablet,delayed 81 mg PO DAILY 11/05/22 11/24/22 release (Adult Aspirin Regimen) blood sugar diagnostic (Contour 11/05/22 11/24/22 Next Test Strips) cholecalciferol (vitamin D3) 25 50 mcg PO DAILY 11/05/22 11/24/22 mcg (1,000 unit) capsule (Vitamin D3) cilostazol 50 mg tablet 100 mg PO QAM 11/05/22 11/24/22 clopidogrel 75 mg tablet 75 mg PO DAILY 11/05/22 11/24/22 empagliflozin 10 mg tablet 10 mg PO QAM 11/05/22 11/24/22 (Jardiance) eztimible PO .qhs 11/05/22 11/24/22 glucagon 3 mg/actuation nasal 3 mg intranasal ONCE 11/05/22 11/24/22 spray (Baqsimi) insulin aspart U-100 100 unit/mL 1 sliding scale dose SUBCUT 11/05/22 11/24/22 subcutaneous solution (Novolog USEASDIRECTD U-100 Insulin aspart) lisinopril 5 mg tablet 5 mg PO DAILY 11/05/22 11/24/22 magnesium chloride 64 mg 64 mg PO DAILY 11/05/22 11/24/22 tablet,extended release metformin 500 mg tablet,extended 1,000 mg PO QAM 11/05/22 11/24/22 release 24 hr rosuvastatin 5 mg tablet 5 mg PO DAILY 11/05/22 11/24/22 tamsulosin 0.4 mg capsule 0.4 mg PO BEDTIME 11/05/22 11/24/22 Previous Rx's Medication Instructions Recorded chlorthalidone 25 mg tablet 12.5 mg PO DAILY PRN leg swelling 11/10/22 #45 tabs donepezil 10 mg tablet 10 mg PO BEDTIME #90 tabs 11/24/22 cefpodoxime 200 mg tablet 200 mg PO BID 10 days #20 tabs 01/03/23 Allergies Allergy/AdvReac Type Severity Reaction Status Date / Time levofloxacin AdvReac Severe Hallucinati Verified 01/03/23 17:07 ng clindamycin AdvReac Intermediate Rash Verified 01/03/23 17:07 spironolactone AdvReac Intermediate rash Verified 01/03/23 17:07 memantine AdvReac liver Verified 01/03/23 17:07 function abnormalities Review of Systems Review of Systems Narrative: GENERAL: Denies chills, fatigue, malaise, fever, sweats. HEENT: Denies sinus pain, ear pain, sore throat, difficulty swallowing, dizziness. RESPIRATORY: Denies dyspnea, cough, wheezing, hemoptysis, sputum. CARDIOVASCULAR: Denies chest pain, palpitations, orthopnea, edema, GASTROINTESTINAL: See HPI : See HPI MUSCULOSKELETAL: denies weakness, joint pain, or bony pain SKIN: Denies rash, skin lesions, or other NEUROLOGIC: Denies weakness, headache, numbness, change in speech, confusion, seizures, incoordination. PSYCHIATRIC: No concerning psychosocial issues. 12 point review of systems is negative except for those stated above Patient History Medical History Benign essential HTN CAD (coronary artery disease) Dementia Diabetes mellitus, insulin dependent (IDDM), controlled Hyperlipidemia Recurrent UTI Type 2 diabetes mellitus without complication, with long-term current use of insulin Surgical History History of heart artery stent Urethral diverticulum Social History Smoking Status: Never smoker Smoking Status: Never smoker alcohol intake frequency: a few times a week Substance Use Type: does not use Exam Narrative Exam Narrative: GENERAL: [89] year old patient appears stated age. Well-developed patient, in mild distress. HEAD: Atraumatic. Normocephalic. EYES: Pupils equal round and reactive. Extraocular motions intact. No scleral icterus. No injection or drainage. ENT: Slightly tacky mucous membranes Nose without bleeding, purulent drainage. Throat without erythema, tonsillar hypertrophy or exudate. Airway patent. NECK: Trachea midline. Non tender CARDIOVASCULAR: Regular rate and rhythm without murmurs, gallops, or rubs. RESPIRATORY: Clear to auscultation. Breath sounds equal bilaterally. No wheezes, rales, or rhonchi. GASTROINTESTINAL: Abdomen soft, non-tender, nondistended. EXTREMITIES: No edema or joint tenderness. BACK: Nontender without deformity or crepitance. No flank tenderness. NEURO: AOx3. SKIN: No rash or erythema of visible areas Initial Vital Signs Initial Vital Signs: Vital Signs Temperature 97.6 F 01/03/23 17:03 Pulse Rate 104 H 01/03/23 17:03 Respiratory Rate 16 01/03/23 17:03 Blood Pressure 110/56 L 01/03/23 17:03 Pulse Oximetry 98 01/03/23 17:03 Oxygen Delivery Method Room Air 01/03/23 17:03 Course Orders Ordered: Discontinued Medications Sodium Chloride (Normal Saline 0.9%) 1,000 mls @ 1,000 mls/hr IV BOLUS ONE Stop: 01/03/23 21:54 Last Infusion: 01/03/23 22:12 Dose: 0 mls/hr Documented By: Admin: 01/03/23 21:11 Dose: 1,000 mls/hr Documented By: JOE Ceftriaxone Sodium 2,000 mg/ (Sodium Chloride) 100 mls @ 200 mls/hr IV NOW ONE Stop: 01/03/23 20:56 Last Infusion: 01/03/23 21:41 Dose: 0 mls/hr Documented By: Admin: 01/03/23 21:11 Dose: 200 mls/hr Documented By: JOE Sodium Chloride (Normal Saline 0.9%) 1,000 mls @ 1,000 mls/hr IV BOLUS ONE Stop: 01/03/23 23:58 Last Infusion: 01/04/23 00:05 Dose: 0 mls/hr Documented By: Admin: 01/03/23 23:16 Dose: 1,000 mls/hr Documented By: JOE Reevaluation(s) Reevaluation #1: Patient feeling much better after fluids, vital signs have normalized Vital Signs Vital signs: Vital Signs - 8 hr 01/03/23 17:03 01/03/23 17:49 01/03/23 17:49 Temperature 97.6 F Pulse Rate 104 H 89 Respiratory Rate 16 Blood Pressure 110/56 L 134/64 Pulse Oximetry 98 96 Oxygen Delivery Method Room Air 01/03/23 18:00 01/03/23 18:00 01/03/23 18:15 Temperature Pulse Rate 87 80 Respiratory Rate Blood Pressure 131/69 Pulse Oximetry 98 98 Oxygen Delivery Method 01/03/23 18:30 01/03/23 18:30 01/03/23 18:48 Temperature Pulse Rate 78 Respiratory Rate Blood Pressure 136/67 134/63 Pulse Oximetry 98 Oxygen Delivery Method 01/03/23 19:00 01/03/23 19:00 01/03/23 19:15 Temperature Pulse Rate 82 86 Respiratory Rate Blood Pressure 134/64 Pulse Oximetry 97 99 Oxygen Delivery Method 01/03/23 19:30 01/03/23 19:45 01/03/23 20:01 Temperature Pulse Rate 81 80 Respiratory Rate Blood Pressure Pulse Oximetry 98 99 99 Oxygen Delivery Method 01/03/23 20:15 01/03/23 20:17 01/03/23 20:17 Temperature Pulse Rate 77 79 Respiratory Rate Blood Pressure 118/67 Pulse Oximetry 98 98 Oxygen Delivery Method 01/03/23 20:30 01/03/23 20:30 01/03/23 20:45 Temperature Pulse Rate 77 74 Respiratory Rate 16 Blood Pressure 127/72 Pulse Oximetry 99 100 Oxygen Delivery Method Room Air 01/03/23 21:06 01/03/23 21:15 01/03/23 21:30 Temperature Pulse Rate 46 L 78 76 Respiratory Rate Blood Pressure Pulse Oximetry 98 99 Oxygen Delivery Method 01/03/23 21:45 01/03/23 21:47 01/03/23 21:47 Temperature Pulse Rate 87 83 Respiratory Rate Blood Pressure 132/67 Pulse Oximetry 99 99 Oxygen Delivery Method 01/03/23 22:00 01/03/23 22:00 Temperature Pulse Rate 76 Respiratory Rate Blood Pressure 132/66 Pulse Oximetry 100 Oxygen Delivery Method MDM - Male Genitourinary Lab Data 01/03/23 19:20 01/03/23 23:10 Labs: Lab Results 01/03/23 01/03/23 01/03/23 Range/Units 17:19 19:20 19:20 WBC 13.2 H (4.5-11.0) X10^3/uL RBC 4.82 (4.5-5.9) X10^6/uL Hgb 12.4 L (13.5-17.5) g/dL Hct 38.0 L (41-53) % MCV 78.7 L (80-100) fL MCH 25.8 L (26-34) PG MCHC 32.8 (30-36) % RDW 22.9 H (11.6-14.8) % Plt Count 180 (150-400) X10^3/uL Neut % (Auto) 84.1 H (50-75) % Lymph % (Auto) 8.1 L (25-40) % [place] % (Auto) 7.4 (3-14) % Eos % (Auto) 0.1 L (2-4) % Baso % (Auto) 0.3 (0-2) % Neut # (Auto) 43568 H (6213-2254) /uL Lymph # (Auto) 1100 (4692-7866) /uL [place] # (Auto) 1000 H (0-900) /uL Eos # (Auto) 0 (0-450) /uL Baso # (Auto) 0 (0-100) /uL RBC Morphology See below Anisocytosis 2+ H Microcytosis 1+ H Ovalocytes 1+ H ESR 25 H (0-15) MM/HR Sodium 127 L (137-145) mmol/L Potassium 3.6 (3.4-5.1) mmol/L Chloride 89 L (98-107) mmol/L Carbon Dioxide 28 (22-32) mmol/L BUN 20 (9-20) mg/dL Creatinine 0.97 (0.66-1.25) mg/dL Estimated GFR > 60 (>60) mL/min BUN/Creatinine Ratio 20.6 (6-22) Glucose 175 H (80-110) mg/dL Calcium 8.3 L (8.4-10.2) mg/dL Magnesium 1.8 (1.6-2.3) mg/dL Total Bilirubin 1.0 (0.2-1.3) mg/dL AST 22 (17-59) IU/L ALT 19 (<50) IU/L Alkaline Phosphatase 51 (38-126) U/L C-Reactive Protein 17.1 H (<1.0) mg/dL Total Protein 5.7 L (6.3-8.2) g/dL Albumin 3.5 (3.5-5.0) g/dL Globulin 2.2 (1.7-4.1) g/dL Albumin/Globulin Ratio 1.6 (1.0-2.8) Lipase 62 (23-300) U/L Urine RBC 0-1/hpf (0-5/HPF) Urine WBC 10-30/hpf H (0-5/HPF) Ur Squamous Epith Cells 0-1 /hpf (0-5/HPF) Amorphous Sediment 1+ Urine Bacteria Few (2-10) H (None) Urine Mucus 1+ H (Negative) Stl C. cayetanensis PCR (Not Detect) Stool Rotavirus (PCR) (Not Detect) Stool Adenovirus (PCR) (Not Detect) Stool Astrovirus (PCR) (Not Detect) Stool Cryptosporidium PCR (Not Detect) Stl E.coli Shiga Tox PCR (Not Detect) St Sh/Enteroin Ecoli PCR (Not Detect) Stool E coli O157 PCR Stl Enterotoxigenic E PCR (Not Detect) Stool EPEC (PCR) (Not Detect) Stl E. histolytica PCR (Not Detect) Stool Giardia Lamblia PCR (Not Detect) Stool Sapovirus (PCR) (Not Detect) Stl P. shigelloides PCR (Not Detect) St Y.enterocolitica PCR (Not Detect) Stool Vibrio (PCR) (Not Detect) Stl Vibrio cholerae PCR (Not Detect) Stl Enteroaggr Ecoli PCR (Not Detect) Stl Norovirus GI/GII PCR (Not Detect) Campylobacter (PCR) (Not Detect) C. difficile Tox (PCR) (Not Detect) Salmonella (PCR) (Not Detect) 01/03/23 01/03/23 Range/Units 21:00 23:10 WBC (4.5-11.0) X10^3/uL RBC (4.5-5.9) X10^6/uL Hgb (13.5-17.5) g/dL Hct (41-53) % MCV (80-100) fL MCH (26-34) PG MCHC (30-36) % RDW (11.6-14.8) % Plt Count (150-400) X10^3/uL Neut % (Auto) (50-75) % Lymph % (Auto) (25-40) % [place] % (Auto) (3-14) % Eos % (Auto) (2-4) % Baso % (Auto) (0-2) % Neut # (Auto) (7773-2815) /uL Lymph # (Auto) (7088-0094) /uL [place] # (Auto) (0-900) /uL Eos # (Auto) (0-450) /uL Baso # (Auto) (0-100) /uL RBC Morphology Anisocytosis Microcytosis Ovalocytes ESR (0-15) MM/HR Sodium 128 L (137-145) mmol/L Potassium 3.4 (3.4-5.1) mmol/L Chloride 93 L (98-107) mmol/L Carbon Dioxide 29 (22-32) mmol/L BUN 20 (9-20) mg/dL Creatinine 0.94 (0.66-1.25) mg/dL Estimated GFR > 60 (>60) mL/min BUN/Creatinine Ratio 21.3 (6-22) Glucose 106 (80-110) mg/dL Calcium 7.7 L (8.4-10.2) mg/dL Magnesium (1.6-2.3) mg/dL Total Bilirubin (0.2-1.3) mg/dL AST (17-59) IU/L ALT (<50) IU/L Alkaline Phosphatase (38-126) U/L C-Reactive Protein (<1.0) mg/dL Total Protein (6.3-8.2) g/dL Albumin (3.5-5.0) g/dL Globulin (1.7-4.1) g/dL Albumin/Globulin Ratio (1.0-2.8) Lipase (23-300) U/L Urine RBC (0-5/HPF) Urine WBC (0-5/HPF) Ur Squamous Epith Cells (0-5/HPF) Amorphous Sediment Urine Bacteria (None) Urine Mucus (Negative) Stl C. cayetanensis PCR Not detected (Not Detect) Stool Rotavirus (PCR) Not detected (Not Detect) Stool Adenovirus (PCR) Not detected (Not Detect) Stool Astrovirus (PCR) Not detected (Not Detect) Stool Cryptosporidium PCR Not detected (Not Detect) Stl E.coli Shiga Tox PCR Not detected (Not Detect) St Sh/Enteroin Ecoli PCR Not detected (Not Detect) Stool E coli O157 PCR Not Reportable Stl Enterotoxigenic E PCR Not detected (Not Detect) Stool EPEC (PCR) Not detected (Not Detect) Stl E. histolytica PCR Not detected (Not Detect) Stool Giardia Lamblia PCR Not detected (Not Detect) Stool Sapovirus (PCR) Not detected (Not Detect) Stl P. shigelloides PCR Not detected (Not Detect) St Y.enterocolitica PCR Not detected (Not Detect) Stool Vibrio (PCR) Not detected (Not Detect) Stl Vibrio cholerae PCR Not detected (Not Detect) Stl Enteroaggr Ecoli PCR Not detected (Not Detect) Stl Norovirus GI/GII PCR Not detected (Not Detect) Campylobacter (PCR) Not detected (Not Detect) C. difficile Tox (PCR) Not detected (Not Detect) Salmonella (PCR) Not detected (Not Detect) Urine Dip Bedside Urine Glucose 1000 mg/dl Bedside Urine Bilirubin - Negative Bedside Urine Ketone ++ 40 Urine Specific [place] 1.020 Bedside Urine Occult Blood + Bedside Urine pH 5.5 Bedside Urine Protein - Negative Bedside Urine Urobilinogen - Negative Bedside Urine Nitrite - Negative Bedside Urine Leukocytes - Negative Esterase MDM Narrative Medical decision making narrative: CC: 67-year-old male with urinary complaints and diarrhea Complicating co-morbidities: Age, coronary artery disease, peripheral artery disease Data collected from: Patient Medical records reviewed: Prior notes reviewed in our EMR Differential considered, but not limited to: UTI, pyelonephritis, bacterial diarrhea, intra-abdominal abnormalities such as bowel obstruction versus other Exam documented above, pertinent findings include: Slightly dry mucous membranes, otherwise largely unremarkable, abdomen soft and nontender Lab Test results independently reviewed as above. Pertinent findings: Leukocytosis with relative left shift, no evidence of anemia, sodium decreased at 127, otherwise electrolytes at baseline, renal function at baseline, glucose slightly elevated. Inflammatory markers elevated Independently reviewed EKG as above Imaging studies independently reviewed: CT of chest, abdomen and pelvis without significant abnormal finding that would require specific intervention, incidental note of 4.2 cm aneurysmal dilatation Treatments: Fluids, antibiotics Re-evaluations: Patient feeling much better as stated Disposition: see below, along with detailed discharge instructions that have been reviewed with patient as well as indications for ED re-evaluation and additional outpatient follow up Discharge Plan Departure Patient Disposition: Home Clinical Impression: Acute UTI, Diarrhea, Acute hyponatremia, Acute dehydration, Aneurysmal dilatation Instructions: DI for Dehydration -- Adult, DI for Urinary Tract Infection (UTI) Activity Restrictions/Additional Instructions: *You have been diagnosed with [UTI, diarrhea, dehydration] *What to do: *Please continue to take your regular medications as directed. [ x] New medication prescriptions sent to your pharmacy: [facility] ] [ ] New medication written as a paper prescription [ ] No new medications given *Please follow up with your primary care provider in 2-3 days, call for an appointment. Let them know you were seen in the Emergency Department and that we ask that you be seen in follow up. We will electronically transmit a record of today's note if your PCP is in our system *If you do not have a primary care provider please contact the [facility] Resource line at [phone]. They will ask some questions about your medical history and help get you set up with a doctor in the community. *Return to Emergency Department if you should have any new, worsening or concerning symptoms, such as [fever greater than 101 F, shaking chills, worsening pain, persistent vomiting or other bothersome symptoms] Prescriptions: New cefpodoxime 200 mg tablet 200 mg PO BID 10 Days Qty: 20 0RF Rx Instructions: must administer with a meal/food No Action nitroglycerin [Nitrostat] 0.4 mg tablet, sublingual 0.4 mg sublingual Q5M PRN Rx Instructions: do not exceed 3 doses per episode cyanocobalamin (vitamin B-12) 1,000 mcg capsule 1,000 mcg PO DAILY chlorthalidone 25 mg tablet 12.5 mg PO DAILY PRN (Reason: leg swelling) Qty: 45 3RF Hold Instructions: swelling/BP stable Baqsimi 3 mg/actuation spray,non-aerosol 3 mg intranasal ONCE Rx Instructions: as a single dose insulin aspart U-100 [Novolog U-100 Insulin aspart] 100 unit/mL solution 1 sliding scale dose SUBCUT USEASDIRECTD Rx Instructions: use 160 units every 3 days via insulin pump (DME) Contour Next Test Strips Strip See Rx Instructions .Route Rx Instructions: As directed Jardiance 10 mg tablet 10 mg PO QAM cilostazol 50 mg tablet 100 mg PO QAM metformin 500 mg tablet extended release 24 hr 1,000 mg PO QAM magnesium chloride 64 mg tablet extended release 64 mg PO DAILY clopidogrel 75 mg tablet 75 mg PO DAILY lisinopril 5 mg tablet 5 mg PO DAILY tamsulosin 0.4 mg capsule 0.4 mg PO BEDTIME aspirin [Adult Aspirin Regimen] 81 mg tablet,delayed release (DR/EC) 81 mg PO DAILY rosuvastatin 5 mg tablet 5 mg PO DAILY eztimible 10 mg PO .qhs cholecalciferol (vitamin D3) [Vitamin D3] 25 mcg (1,000 unit) capsule 50 mcg PO DAILY donepezil 10 mg tablet 10 mg PO BEDTIME Qty: 90 3RF Referrals: Kurt Kim DO [Primary Care Provider] - Stand Alone Forms: Patient Portal/API
[2023-01-03 19:35] LABS: Add Manual Diff / Slide Review NO; Basophils Absolute Auto 0 /uL (0-100); Basophils Percent Auto 0.3 % (0-2); Eosinophils Absolute Auto 0 /uL (0-450); Eosinophils Percent Auto 0.1 % (2-4); Hemoglobin 12.4 g/dL (13.5-17.5); Lymphocytes Absolute Auto 1100 /uL (1100-4500); Lymphocytes Percent Auto 8.1 % (25-40); Mean Corpuscular HGB Conc 32.8 % (30-36); Mean Corpuscular Hemoglobin 25.8 PG (26-34); Mean Corpuscular Volume 78.7 fL (80-100); Monocytes Absolute Auto 1000 /uL (0-900); Monocytes Percent Auto 7.4 % (3-14); Neutrophils Absolute Auto 11100 /uL (1500-7000); Neutrophils Percent Auto 84.1 % (50-75); Platelet Count 180 X10^3/uL (150-400); Red Blood Cell Count 4.82 X10^6/uL (4.5-5.9); Red Cell Distribution Width 22.9 % (11.6-14.8); White Blood Cell Count 13.2 X10^3/uL (4.5-11.0)
[2023-01-03 19:43] LABS: Alanine Aminotransferase 19 IU/L (<50); Albumin 3.5 g/dL (3.5-5.0); Albumin Globulin Ratio 1.6 (1.0-2.8); Alkaline Phosphatase 51 U/L (38-126); Aspartate Aminotransferase 22 IU/L (17-59); BUN Creatinine Ratio 20.6 (6-22); Blood Urea Nitrogen 20 mg/dL (9-20); Calcium 8.3 mg/dL (8.4-10.2); Carbon Dioxide 28 mmol/L (22-32); Chloride 89 mmol/L (98-107); Estimated Glomerular Filt Rate > 60 mL/min (>60); Globulin 2.2 g/dL (1.7-4.1); Glucose 175 mg/dL (80-110); HEMOLYSIS < 15 (0-50); Lipase 62 U/L (23-300); Magnesium 1.8 mg/dL (1.6-2.3); Potassium 3.6 mmol/L (3.4-5.1); Sodium 127 mmol/L (137-145); Total Protein 5.7 g/dL (6.3-8.2)
[2023-01-03 19:50] LABS: Anisocytosis 2+; Microcytosis 1+; Ovalocytes 1+
[2023-01-03 19:55] LABS: Erythrocyte Sedimentation Rate 25 MM/HR (0-15)
[2023-01-03 19:56] LABS: C-Reactive Protein Quant 17.1 mg/dL (<1.0)
--- NOTE | 2023-01-03 20:55 | DI.CT.S_ITS ---
PROCEDURE: CT CHEST ABD PEL W CON INDICATIONS: weight loss, leukocytosis, diarrhea TECHNIQUE: After the administration of intravenous contrast, 5 mm thick sections acquired from the lung apices to the symphysis. 5 mm coronal and sagittal reformats were performed, with additional 7 mm MIP reformats through the lungs. For radiation dose reduction, the following was used: automated exposure control, adjustment of mA and/or kV according to patient size. COMPARISON: None. FINDINGS: Image quality: Excellent. CHEST: Lungs and pleura: No acute airspace opacities. No pleural effusions or pneumothorax. Central and peripheral airways appear patent and normal in caliber. Mediastinum: Heart size is normal but the ascending aorta is mildly aneurysmal at 4.2 cm. . No pericardial effusion. No mediastinal or hilar adenopathy by size criteria. Thoracic aorta and central pulmonary arteries are normal in size. Esophagus is normal in caliber. No hiatal hernia. Chest wall: No axillary or supraclavicular adenopathy by size criteria. Thyroid gland appears normal where well seen . ABDOMEN: Solid organs: Liver is normal in size and enhancement. Gallbladder contains several small mobile appearing calcified gallstones within the gallbladder lumen. . Biliary system is non dilated. Pancreas enhances normally. Spleen is normal in size and enhancement. No adrenal nodules. Kidneys demonstrate normal size and enhancement, without hydronephrosis. Peritoneum and bowel: Bowel loops demonstrate normal wall thickness and caliber. No free fluid or air. Nodes and vessels: No retroperitoneal or mesenteric adenopathy by size criteria. Aorta and inferior vena cava are normal in size. Miscellaneous: No ventral hernias. PELVIS: Genitourinary: Bladder wall thickness is normal. Miscellaneous: No inguinal hernias or adenopathy. Bones: No suspicious bony lesions. No vertebral body compression fractures. IMPRESSION: Source of weight loss, leukocytosis and diarrhea is not found. Note is made of mild aneurysmal dilatation of the ascending aorta at the aortic root, measuring up to 4.2 cm. Small gallstones can be seen within the gallbladder lumen layering dependently, partially calcified. Stones of this size could easily transit into the cystic duct or common bile duct. No sign of acute pancreatitis at this time. Dictated by: Damon Owen M.D. on 01/03/2023 at 22:04 Approved by: Damon Owen M.D. on 01/03/2023 at 22:06
[2023-01-03] MEDS: SODIUM CHLORIDE 0.9% 1,000 ML 1000 ML IV ×2 (21:11→23:16)
[2023-01-03] MEDS: cefTRIAXone 2,000 MG in SODIUM CHLORIDE 0.9% 100 ML 200 MG IV (21:11)
[2023-01-03 22:47] LABS: Campylobacter Not Detected (Not Detect)
[2023-01-03 22:48] LABS: Adenovirus F 40/41 Not Detected (Not Detect); Astrovirus Not Detected (Not Detect); Clostridium difficile toxin AB Not Detected (Not Detect); Cryptosporidium Not Detected (Not Detect); Cyclospora cayetanensis Not Detected (Not Detect); Entamoeba histolytica Not Detected (Not Detect); Enteroaggregative E.coli Not Detected (Not Detect); Enteropathogenic E.coli Not Detected (Not Detect); Enterotoxigenic E.coli It/st Not Detected (Not Detect); Giardia lamblia Not Detected (Not Detect); Norovirus GI/GII Not Detected (Not Detect); Plesiomonsa shigelloides Not Detected (Not Detect); Rotavirus A Not Detected (Not Detect); Salmonella Not Detected (Not Detect); Sapovirus Not Detected (Not Detect); Shiga-like toxin-prod E.coli Not Detected (Not Detect); Shigella/Enteroinvasive E.coli Not Detected (Not Detect); Vibrio Not Detected (Not Detect); Vibrio cholerae Not Detected (Not Detect); Yersinia enterocolitica Not Detected (Not Detect)
[2023-01-03 23:38] LABS: BUN Creatinine Ratio 21.3 (6-22); Blood Urea Nitrogen 20 mg/dL (9-20); Calcium 7.7 mg/dL (8.4-10.2); Carbon Dioxide 29 mmol/L (22-32); Chloride 93 mmol/L (98-107); Estimated Glomerular Filt Rate > 60 mL/min (>60); Glucose 106 mg/dL (80-110); HEMOLYSIS < 15 (0-50); Potassium 3.4 mmol/L (3.4-5.1); Sodium 128 mmol/L (137-145)
[2023-01-04 00:07] VITALS: BP 139/67; PULSE 82; RESP 16; TEMP 36.6; O2SAT 98
== END 2023-01-04 00:08 | disposition home or self-care (01) ==
PROVIDERS: Emergency Provider Emergency Medicine; Family Provider Physician Assistant Medical; PCP Family Medicine
DX: N39.0 Urinary tract infection, site not specified (principal); E87.1 Hypo-osmolality and hyponatremia; E86.0 Dehydration; I72.9 Aneurysm of unspecified site; Z79.899 Other long term (current) drug therapy
CPT/HCPCS: 36415; 51798; 71260; 74177; 80048; 80053; 81003; 81015; 83690; 83735; 85025; 85651; 86140; 87077; 87086; 87186; 87507; 96361; 96365; 99284; J0696; Q9967

== ENCOUNTER → 2023-02-17 09:37 | Outpatient (CLI) | payer MEDICARE, OTHER, SELFPAY ==
[2023-02-17 10:58] LABS: Add Manual Diff / Slide Review NO; Basophils Absolute Auto 0 /uL (0-100); Basophils Percent Auto 0.3 % (0-2); Eosinophils Absolute Auto 300 /uL (0-450); Eosinophils Percent Auto 4.5 % (2-4); Hematocrit 43.4 % (41-53); Lymphocytes Absolute Auto 800 /uL (1100-4500); Lymphocytes Percent Auto 10.6 % (25-40); Mean Corpuscular HGB Conc 34.6 % (30-36); Mean Corpuscular Hemoglobin 28.7 PG (26-34); Mean Corpuscular Volume 82.8 fL (80-100); Monocytes Absolute Auto 500 /uL (0-900); Monocytes Percent Auto 6.6 % (3-14); Neutrophils Absolute Auto 5700 /uL (1500-7000); Platelet Count 175 X10^3/uL (150-400); Red Blood Cell Count 5.25 X10^6/uL (4.5-5.9); White Blood Cell Count 7.3 X10^3/uL (4.5-11.0)
[2023-02-17 11:40] LABS: BUN Creatinine Ratio 23.8 (6-22); Blood Urea Nitrogen 19 mg/dL (9-20); Calcium 8.4 mg/dL (8.4-10.2); Carbon Dioxide 31 mmol/L (22-32); Chloride 95 mmol/L (98-107); Estimated Glomerular Filt Rate > 60 mL/min (>60); Glucose 116 mg/dL (80-110); HEMOLYSIS < 15 (0-50); Potassium 4.1 mmol/L (3.4-5.1); Sodium 131 mmol/L (137-145)
[2023-02-17 12:08] LABS: Ferritin 16 ng/mL (18-464)
[2023-02-17 12:44] LABS: TSH w/ Reflex to FT4 3.69 uIU/mL (0.47-4.68)
[2023-02-18 05:13] LABS: Labcorp Hemoglobin (Hb) A1c 6.8 % (4.8-5.6)
== END ==
PROVIDERS: Family Provider Physician Assistant Medical; PCP Family Medicine; Referring Provider Family Medicine; Visit Provider Family Medicine
DX: D50.9 Iron deficiency anemia, unspecified (principal); R53.83 Other fatigue; E11.9 Type 2 diabetes mellitus without complications; Z79.4 Long term (current) use of insulin
CPT/HCPCS: 36415; 80048; 82728; 83036; 84443; 85025

== ENCOUNTER → 2023-04-15 11:40 | Outpatient (CLI) | payer MEDICARE, OTHER, SELFPAY ==
[2023-04-15 13:30] LABS: HEMOLYSIS < 15 (0-50); Iron 92 ug/dL (49-181)
[2023-04-15 13:40] LABS: Percent Iron Saturation 34 % (20-50); Total Iron Binding Capacity 274 ug/dL (261-462); Transferrin 185 mg/dL (206-381)
[2023-04-15 13:56] LABS: Ferritin 145 ng/mL (18-464)
== END ==
PROVIDERS: Family Provider Physician Assistant Medical; PCP Family Medicine; Referring Provider Family Medicine; Visit Provider Family Medicine
DX: D50.9 Iron deficiency anemia, unspecified (principal)
CPT/HCPCS: 36415; 82728; 83540; 83550

== ENCOUNTER → 2023-07-02 10:03 | Outpatient (CLI) | payer MEDICARE, OTHER, SELFPAY ==
[2023-07-02 11:20] LABS: Alanine Aminotransferase 94 IU/L (<50); Albumin 3.4 g/dL (3.5-5.0); Albumin Globulin Ratio 1.8 (1.0-2.8); Alkaline Phosphatase 51 U/L (38-126); Aspartate Aminotransferase 30 IU/L (17-59); BUN Creatinine Ratio 22.1 (6-22); Bilirubin Total 0.9 mg/dL (0.2-1.3); Blood Urea Nitrogen 17 mg/dL (9-20); Calcium 9.1 mg/dL (8.4-10.2); Carbon Dioxide 31 mmol/L (22-32); Chloride 98 mmol/L (98-107); Estimated Glomerular Filt Rate > 60 mL/min (>60); Globulin 1.9 g/dL (1.7-4.1); Glucose 145 mg/dL (80-110); HEMOLYSIS < 15 (0-50); Magnesium 1.8 mg/dL (1.6-2.3); Potassium 4.1 mmol/L (3.4-5.1); Sodium 134 mmol/L (137-145); Total Protein 5.3 g/dL (6.3-8.2)
[2023-07-05 12:28] LABS: Cholesterol, Total 118 mg/dL (100-199); HDL-Cholesterol 55 mg/dL (>39); HDL-Particle (Total) 36.4 umol/L (>=30.5); LDL Particle 628 nmol/L (<1000); LDL Size 20.7 nm (>20.5); LDL-Cholsterol 48 mg/dL (0-99); LP-IR Score <25 (<=45); Small LDL- Particle 196 nmol/L (<=527); Triglycerides 75 mg/dL (0-149)
== END ==
PROVIDERS: Family Provider Physician Assistant Medical; PCP Family Medicine; Referring Provider Specialist; Visit Provider Specialist
DX: I10 Essential (primary) hypertension (principal); I25.10 Atherosclerotic heart disease of native coronary artery without angina pectoris
CPT/HCPCS: 36415; 80053; 80061; 83704; 83735

== ENCOUNTER → 2023-07-08 12:00 | Outpatient (CLI) | payer MEDICARE, OTHER, SELFPAY ==
[2023-07-08 13:06] LABS: Add Manual Diff / Slide Review NO; Basophils Absolute Auto 0 /uL (0-100); Basophils Percent Auto 0.3 % (0-2); Eosinophils Absolute Auto 0 /uL (0-450); Eosinophils Percent Auto 0.6 % (2-4); Hematocrit 46.3 % (41-53); Lymphocytes Absolute Auto 1000 /uL (1100-4500); Lymphocytes Percent Auto 13.9 % (25-40); Mean Corpuscular HGB Conc 34.4 % (30-36); Mean Corpuscular Volume 92.8 fL (80-100); Monocytes Absolute Auto 400 /uL (0-900); Monocytes Percent Auto 5.8 % (3-14); Neutrophils Absolute Auto 5900 /uL (1500-7000); Neutrophils Percent Auto 79.4 % (50-75); Platelet Count 187 X10^3/uL (150-400); Red Blood Cell Count 4.99 X10^6/uL (4.5-5.9); Red Cell Distribution Width 13.7 % (11.6-14.8); White Blood Cell Count 7.4 X10^3/uL (4.5-11.0)
[2023-07-08 13:54] LABS: Hemoglobin A1C% w Est Avg Glu 6.7 % (4.0-6.0)
[2023-07-08 14:03] LABS: Ferritin 167 ng/mL (18-464)
== END ==
PROVIDERS: Family Provider Physician Assistant Medical; PCP Family Medicine; Referring Provider Family Medicine; Visit Provider Family Medicine
DX: E11.9 Type 2 diabetes mellitus without complications (principal); R53.83 Other fatigue; R79.0 Abnormal level of blood mineral; I10 Essential (primary) hypertension; Z79.4 Long term (current) use of insulin
CPT/HCPCS: 36415; 82728; 83036; 85025

== ENCOUNTER → 2023-07-14 17:19 | Outpatient (CLI) | payer MEDICARE, OTHER, SELFPAY ==
--- NOTE | 2023-07-14 17:23 | DI.MRI.S_ITS ---
PROCEDURE: MR ORBITS FACE NECK WO/W CON INDICATIONS: Silva, split vision Lt eye, Hx of 3 nerve palsy, dementia TECHNIQUE: Noncontrast sagittal T1 spin echo, axial FLAIR, axial gradient echo, axial diffusion and ADC acquired through the brain. Coronal STIR, thin-slice axial T1 spin echo through the orbits. After the administration of contrast, thin-slice axial and coronal T1 spin echo with fat saturation through the orbits, axial and coronal and sagittal T1 spin echo with fat saturation through the brain. COMPARISON: [facility], MR, BRAIN W&WO CONTRAST, 11/14/2014, 19:06. FINDINGS: Image quality: Diagnostic. Orbits: Globes are symmetrical. Note is made of bilateral lens replacements. The optic nerves are normal in size, without abnormal signal or enhancement. No retrobulbar masses or fat abnormalities. The extra-ocular muscles are normal and symmetric in appearance. Lacrimal glands are normal. Optic chiasm is normal. Periorbital soft tissues appear normal. CSF spaces: Ventricles are normal in size and shape. Basal cisterns are patent. No extra-axial fluid collections. Brain: No findings of skull base masses or abnormal enhancement can be seen. No intracranial bleeds or mass effects. No abnormal intracranial enhancement. Herrera-white matter interface is intact. Diffusion weighted images demonstrate no acute ischemic insults. Pituitary gland appears normal, without sellar or suprasellar masses. Brainstem appears normal. Normal intravascular flow voids are present. Note is made of a cavum septum pellucidum. When discovered in isolation, this is considered to be a developmental variant of no clinical consequence. Note is made of age-appropriate brain parenchymal volume loss and chronic small vessel ischemic changes. Skull and face: Calvarial marrow is normal in signal. Sinuses: Sinuses and mastoids are clear. IMPRESSION: No imaging explanation is found for this patient's presenting symptoms. Normal appearing orbits. Dictated by: Phillip Lacy M.D. on 07/14/2023 at 17:32 Approved by: Phillip Lacy M.D. on 07/14/2023 at 17:33
== END ==
PROVIDERS: Family Provider Physician Assistant Medical; PCP Family Medicine; Referring Provider Family Medicine; Visit Provider Family Medicine
DX: R51.9 Headache, unspecified (principal); F03.90 Unspecified dementia, unspecified severity, without behavioral disturbance, psychotic disturbance, mood disturbance, and anxiety; H53.9 Unspecified visual disturbance; H57.9 Unspecified disorder of eye and adnexa
CPT/HCPCS: 70543

== ENCOUNTER → 2023-11-11 10:14 | Outpatient (CLI) | payer MEDICARE, OTHER, SELFPAY ==
[2023-11-11 11:56] LABS: Add Manual Diff / Slide Review NO; Basophils Absolute Auto 0 /uL (0-100); Basophils Percent Auto 0.4 % (0-2); Eosinophils Absolute Auto 200 /uL (0-450); Eosinophils Percent Auto 2.7 % (2-4); Hematocrit 43.2 % (41-53); Hemoglobin 15.1 g/dL (13.5-17.5); Lymphocytes Absolute Auto 1200 /uL (1100-4500); Lymphocytes Percent Auto 16.9 % (25-40); Mean Corpuscular Hemoglobin 32.1 PG (26-34); Mean Corpuscular Volume 91.6 fL (80-100); Monocytes Absolute Auto 500 /uL (0-900); Monocytes Percent Auto 6.8 % (3-14); Neutrophils Absolute Auto 5000 /uL (1500-7000); Neutrophils Percent Auto 73.2 % (50-75); Platelet Count 184 X10^3/uL (150-400); Red Blood Cell Count 4.71 X10^6/uL (4.5-5.9); Red Cell Distribution Width 13.4 % (11.6-14.8); White Blood Cell Count 6.9 X10^3/uL (4.5-11.0)
[2023-11-11 12:14] LABS: Hemoglobin A1C% w Est Avg Glu 6.4 % (4.0-6.0)
[2023-11-11 13:11] LABS: Alanine Aminotransferase 71 IU/L (<50); Albumin 3.6 g/dL (3.5-5.0); Albumin Globulin Ratio 1.8 (1.0-2.8); Alkaline Phosphatase 60 U/L (38-126); Aspartate Aminotransferase 54 IU/L (17-59); Bilirubin Total 0.8 mg/dL (0.2-1.3); Bilirubin Unconjugated 0.6 mg/dL (0.0-1.1); Blood Urea Nitrogen 22 mg/dL (9-20); Calcium 8.9 mg/dL (8.4-10.2); Carbon Dioxide 30 mmol/L (22-32); Chloride 102 mmol/L (98-107); Cholesterol 70 mg/dL (140-199); Estimated Glomerular Filt Rate > 60 mL/min (>60); Glucose 90 mg/dL (80-110); HDL Cholesterol 39 mg/dL (40-60); HEMOLYSIS 17 (0-50); LDL Cholesterol Calculated 17 mg/dL (<100); Potassium 4.4 mmol/L (3.4-5.1); Sodium 136 mmol/L (137-145); Total Protein 5.6 g/dL (6.3-8.2); Triglycerides 68 mg/dL (35-150)
[2023-11-11 13:52] LABS: Ferritin 148 ng/mL (18-464)
== END ==
LOC: LAB 10:20
PROVIDERS: Family Provider Physician Assistant Medical; PCP Family Medicine; Referring Provider Family Medicine; Visit Provider Family Medicine
DX: D50.9 Iron deficiency anemia, unspecified (principal); E11.9 Type 2 diabetes mellitus without complications; Z79.4 Long term (current) use of insulin; E78.49 Other hyperlipidemia; I10 Essential (primary) hypertension
CPT/HCPCS: 36415; 80048; 80061; 80076; 82728; 83036; 85025

== ENCOUNTER 2023-11-28 21:22 | Emergency (ER) | payer MEDICARE, OTHER, SELFPAY ==
[2023-11-28] VITALS (11 sets, daily range): BP systolic 147–174; BP diastolic 64–82; PULSE 46–70; RESP 12–25; TEMP 36.7; O2SAT 97–100; BMI 22.2
[2023-11-28 21:50] LABS: Add Manual Diff / Slide Review NO; Basophils Absolute Auto 200 /uL (0-100); Basophils Percent Auto 2.5 % (0-2); Eosinophils Absolute Auto 400 /uL (0-450); Eosinophils Percent Auto 5.1 % (2-4); Hematocrit 46.1 % (41-53); Hemoglobin 15.9 g/dL (13.5-17.5); Lymphocytes Absolute Auto 700 /uL (1100-4500); Lymphocytes Percent Auto 9.1 % (25-40); Mean Corpuscular HGB Conc 34.5 % (30-36); Mean Corpuscular Hemoglobin 31.6 PG (26-34); Mean Corpuscular Volume 91.5 fL (80-100); Monocytes Absolute Auto 600 /uL (0-900); Monocytes Percent Auto 8.5 % (3-14); Neutrophils Absolute Auto 5400 /uL (1500-7000); Neutrophils Percent Auto 74.8 % (50-75); Platelet Count 167 X10^3/uL (150-400); Red Blood Cell Count 5.04 X10^6/uL (4.5-5.9); Red Cell Distribution Width 13.7 % (11.6-14.8); White Blood Cell Count 7.2 X10^3/uL (4.5-11.0)
[2023-11-28 21:54] LABS: Blood Urea Nitrogen 20 mg/dL (9-20); Calcium 9.4 mg/dL (8.4-10.2); Carbon Dioxide 26 mmol/L (22-32); Chloride 100 mmol/L (98-107); Creatine Kinase 110 U/L (55-170); Estimated Glomerular Filt Rate > 60 mL/min (>60); Glucose 128 mg/dL (80-110); HEMOLYSIS 25 (0-50); Lipase 178 U/L (23-300); Sodium 137 mmol/L (137-145)
--- NOTE | 2023-11-28 21:56 | ED_ITS ---
HPI - General Adult General Chief complaint: Diabetic Problem Stated complaint: DM hypoglycemia Time Seen by Provider: 11/28/23 21:40 Source: patient and EMS Mode of arrival: EMS History of Present Illness HPI narrative: Patient is a 60-year-old male. He has an insulin-dependent diabetic. Has a continuous glucose monitor and also a insulin pump. Patient's contacted EMS today because of several episodes where his blood sugar was dropping. Patient states that he has not had any changes to his insulin regimen. He states that he is eating and drinking like normal. He also stated that earlier today he had discomfort in his upper abdomen. He described this as heartburn. He took some Tums in the symptoms went away. He currently has no abdominal discomfort or chest discomfort. No shortness of breath. No nausea or vomiting. He states that overall he feels well. Related Data Home Medications Medication Instructions Recorded Confirmed cyanocobalamin (vitamin B-12) 1,000 mcg PO DAILY 10/06/21 11/16/23 1,000 mcg capsule nitroglycerin 0.4 mg sublingual 0.4 mg sublingual Q5M PRN 10/06/21 11/16/23 tablet (Nitrostat) aspirin 81 mg tablet,delayed 81 mg PO DAILY 11/05/22 11/16/23 release (Adult Aspirin Regimen) blood sugar diagnostic (Contour 11/05/22 11/16/23 Next Test Strips) cholecalciferol (vitamin D3) 25 50 mcg PO DAILY 11/05/22 11/16/23 mcg (1,000 unit) capsule (Vitamin D3) cilostazol 50 mg tablet 100 mg PO QAM 11/05/22 11/16/23 clopidogrel 75 mg tablet 75 mg PO DAILY 11/05/22 11/16/23 empagliflozin 10 mg tablet 10 mg PO QAM 11/05/22 11/16/23 (Jardiance) glucagon 3 mg/actuation nasal 3 mg intranasal ONCE 11/05/22 11/16/23 spray (Baqsimi) insulin aspart U-100 100 unit/mL 1 sliding scale dose SUBCUT 11/05/22 11/16/23 subcutaneous solution (Novolog USEASDIRECTD U-100 Insulin aspart) magnesium chloride 64 mg 64 mg PO DAILY 11/05/22 11/16/23 tablet,extended release rosuvastatin 5 mg tablet 5 mg PO DAILY 11/05/22 11/16/23 ezetimibe 10 mg tablet 10 mg PO DAILY 07/08/23 11/16/23 ferrous sulfate 325 mg (65 mg 325 mg PO DAILY 07/08/23 11/16/23 iron) tablet (FeroSul) lisinopril 2.5 mg tablet 2.5 mg PO DAILY 07/08/23 11/16/23 metformin 1,000 mg tablet 1,000 mg PO BID 08/05/23 11/16/23 Previous Rx's Medication Instructions Recorded donepezil 10 mg tablet 10 mg PO BEDTIME #90 tabs 11/24/22 ferumoxytol 510 mg/17 mL (30 510 mg (17 mL) IV Q3D 2 doses #17 02/18/23 mg/mL) intravenous solution mL (Feraheme) tamsulosin 0.4 mg capsule 0.8 mg (2 x 0.4 mg) PO BEDTIME 07/06/23 #180 caps Allergies Allergy/AdvReac Type Severity Reaction Status Date / Time levothyroxine Allergy Verified 11/16/23 15:39 Quinolones Allergy Verified 11/16/23 15:39 levofloxacin AdvReac Severe Hallucinati Verified 11/16/23 15:39 ng clindamycin AdvReac Intermediate Rash Verified 11/16/23 15:39 spironolactone AdvReac Intermediate rash Verified 11/16/23 15:39 memantine AdvReac liver Verified 11/16/23 15:39 function abnormalities Review of Systems Review of Systems ROS Unobtainable: All systems reviewed & are unremarkable except as noted in HPI and below Patient History Medical History Elevated LFTs Iron deficiency anemia History of UTI BPH w urinary obs/LUTS Urinary incontinence without sensory awareness Urinary incontinence due to severe physical disability Sleep apnea Ankle fracture, right Mumps Measles Chicken pox History of urinary incontinence Fecal incontinence Hemorrhoid Colitis Diastolic heart failure Hyperlipidemia Benign essential HTN Type 2 diabetes mellitus without complication, with long-term current use of insulin (~2005) Dementia Recurrent UTI Diabetes mellitus, insulin dependent (IDDM), controlled CAD (coronary artery disease) Surgical History Anesthesia History of cataract removal with insertion of prosthetic lens (~2021) H/O heart artery stent History of heart artery stent Urethral diverticulum Family History Mother Polycystic kidney History of heart disease Hypertension Father Coronary artery disease Brother Diabetes mellitus History of heart disease Polycystic kidney Social History Smoking Status: Never smoker Smoking Status: Never smoker alcohol intake frequency: a few times a week Substance Use Type: does not use Exam Initial Vital Signs Initial Vital Signs: Vital Signs Pulse Rate 60 11/28/23 21:25 Pulse Oximetry 100 11/28/23 21:25 Oxygen Delivery Method Room Air 11/28/23 21:25 Const General: cooperative, comfortable and No ill appearing HENMT Head: normal to inspection and normocephalic Resp Effort & Inspection: normal respiratory effort Auscultation: clear to auscultation bilaterally Cardio Rate: regular rate Rhythm: regular rhythm GI Inspection: normal to inspection Palpation: soft and No tender Skin General: no rashes or lesions noted Neuro General: patient alert, patient awake, patient oriented x3 and moves all extremities Extrem General: normal to inspection and capillary refill normal Course Orders Ordered: ED Orders 11/28/23 21:28 Basic Metabolic Panel Stat Complete Blood Count AUTO DIFF Stat Lipase Stat Troponin & CK Cardiac Panel Stat 11/28/23 21:41 EKG-12 Lead Stat 11/28/23 21:53 Urine Microscopic Stat Discontinued Medications Pantoprazole Sodium (Pantoprazole 40 Mg Vial) 40 mg IV NOW ONE Stop: 11/28/23 21:43 Last Admin: 11/28/23 23:28 Dose: Not Given Documented By: KF Vital Signs Vital signs: Vital Signs - 8 hr 11/28/23 21:25 11/28/23 21:30 11/28/23 21:30 Temperature Pulse Rate 60 52 L Respiratory Rate 16 Blood Pressure 161/82 H Pulse Oximetry 100 100 Oxygen Delivery Method Room Air Room Air 11/28/23 21:31 11/28/23 21:47 11/28/23 21:47 Temperature 98.1 F Pulse Rate 55 L 55 L Respiratory Rate 18 21 Blood Pressure 174/74 H 163/82 H Pulse Oximetry 98 99 Oxygen Delivery Method Room Air Room Air 11/28/23 22:00 11/28/23 22:12 11/28/23 22:12 Temperature Pulse Rate 70 52 L Respiratory Rate 18 12 Blood Pressure 160/73 H Pulse Oximetry 99 99 Oxygen Delivery Method Room Air 11/28/23 22:30 11/28/23 22:31 11/28/23 22:31 Temperature Pulse Rate 49 L 48 L Respiratory Rate 20 25 H Blood Pressure 148/68 H Pulse Oximetry 99 99 Oxygen Delivery Method 11/28/23 23:00 11/28/23 23:00 11/28/23 23:30 Temperature Pulse Rate 46 L 63 Respiratory Rate 16 22 Blood Pressure 148/71 H Pulse Oximetry 98 97 Oxygen Delivery Method 11/28/23 23:31 11/28/23 23:31 Temperature Pulse Rate 49 L Respiratory Rate 20 Blood Pressure 147/64 H Pulse Oximetry 97 Oxygen Delivery Method Medical Decision Making Lab Data Lab results reviewed: Yes I reviewed the patient's lab results. 11/28/23 21:28 11/28/23 21:28 Labs: Lab Results 11/28/23 11/28/23 Range/Units 21:28 21:53 WBC 7.2 (4.5-11.0) X10^3/uL RBC 5.04 (4.5-5.9) X10^6/uL Hgb 15.9 (13.5-17.5) g/dL Hct 46.1 (41-53) % MCV 91.5 (80-100) fL MCH 31.6 (26-34) PG MCHC 34.5 (30-36) % RDW 13.7 (11.6-14.8) % Plt Count 167 (150-400) X10^3/uL Neut % (Auto) 74.8 (50-75) % Lymph % (Auto) 9.1 L (25-40) % [place] % (Auto) 8.5 (3-14) % Eos % (Auto) 5.1 H (2-4) % Baso % (Auto) 2.5 H (0-2) % Neut # (Auto) 5400 (0603-9191) /uL Lymph # (Auto) 700 L (3066-7531) /uL [place] # (Auto) 600 (0-900) /uL Eos # (Auto) 400 (0-450) /uL Baso # (Auto) 200 H (0-100) /uL Sodium 137 (137-145) mmol/L Potassium 4.0 (3.4-5.1) mmol/L Chloride 100 (98-107) mmol/L Carbon Dioxide 26 (22-32) mmol/L BUN 20 (9-20) mg/dL Creatinine 0.91 (0.66-1.25) mg/dL Estimated GFR > 60 (>60) mL/min BUN/Creatinine Ratio 22.0 (6-22) Glucose 128 H (80-110) mg/dL Calcium 9.4 (8.4-10.2) mg/dL Total Creatine Kinase 110 (55-170) U/L Troponin I < 0.012 (0.01-0.034) ng/mL Lipase 178 (23-300) U/L Urine RBC None seen (0-5/HPF) Urine WBC None seen (0-5/HPF) Ur Squamous Epith Cells 0-1 /hpf (0-5/HPF) Urine Bacteria None seen (None) Ur Culture Indicated? Cult not indicated Vol Urine Centrifuged 10ml (spun) Point of Care Testing Glucose POC 144 Urine Dip Bedside Urine Glucose 1000 mg/dl Bedside Urine Bilirubin - Negative Bedside Urine Ketone - Negative Urine Specific [place] 1.015 Bedside Urine Occult Blood + Bedside Urine pH 6.0 Bedside Urine Protein - Negative Bedside Urine Urobilinogen - Negative Bedside Urine Nitrite - Negative Bedside Urine Leukocytes - Negative Esterase Point of care testing: Point of Care Testing Glucose POC 144 Urine Dip Bedside Urine Glucose 1000 mg/dl Bedside Urine Bilirubin - Negative Bedside Urine Ketone - Negative Urine Specific [place] 1.015 Bedside Urine Occult Blood + Bedside Urine pH 6.0 Bedside Urine Protein - Negative Bedside Urine Urobilinogen - Negative Bedside Urine Nitrite - Negative Bedside Urine Leukocytes - Negative Esterase ECG Data Attestation: I personally reviewed and interpreted this ECG as follows: Prior ECG tracings: available for review Interpretation: Sinus tachycardia Ventricular rate of 54 Left axis deviation Right bundle-branch block LVH Unchanged from 09/08/2022 MDM Narrative Medical decision making narrative: His blood sugars have maintained an appropriate level since arrival here to the ER. He was able to tolerate oral intake. He is asymptomatic. The upper abdominal discomfort that he initially had actually resolved after taking Tums prior to arrival here to the ER. His EKG shows no left bundle-branch block in his unchanged from a prior EKG from 2021. Labs are unremarkable. Unsure of the exact etiology of why his blood sugars were dropping earlier in the day. He has had no recent change to his insulin regimen. He did refill the insulin in his pump this morning. We did discuss the pump. Discussed things that he could do at home if his blood sugars were to decrease again. Patient is safe for discharge home and follow-up as outpatient with primary doctor. He was given return precautions. He expressed understanding and agreement. Discharge Plan Departure Patient Disposition: Home Clinical Impression: Hypoglycemia Instructions: Hypoglycemia Activity Restrictions/Additional Instructions: Your labs and EKG here in the emergency department are all very reassuring. It does appear that your blood sugars are maintaining at an appropriate level. No changes in your insulin regimen are recommended. I do recommend that you contact your primary care provider for a follow-up. Return to the emergency department for new symptoms. Prescriptions: No Action nitroglycerin [Nitrostat] 0.4 mg tablet, sublingual 0.4 mg sublingual Q5M PRN Rx Instructions: do not exceed 3 doses per episode cyanocobalamin (vitamin B-12) 1,000 mcg capsule 1,000 mcg PO DAILY tamsulosin 0.4 mg capsule 0.8 mg PO BEDTIME Qty: 180 3RF Baqsimi 3 mg/actuation spray,non-aerosol 3 mg intranasal ONCE Rx Instructions: as a single dose insulin aspart U-100 [Novolog U-100 Insulin aspart] 100 unit/mL solution 1 sliding scale dose SUBCUT USEASDIRECTD Rx Instructions: use 160 units every 3 days via insulin pump (DME) Contour Next Test Strips Strip See Rx Instructions .Route Rx Instructions: As directed Jardiance 10 mg tablet 10 mg PO QAM cilostazol 50 mg tablet 100 mg PO QAM magnesium chloride 64 mg tablet extended release 64 mg PO DAILY clopidogrel 75 mg tablet 75 mg PO DAILY aspirin [Adult Aspirin Regimen] 81 mg tablet,delayed release (DR/EC) 81 mg PO DAILY rosuvastatin 5 mg tablet 5 mg PO DAILY cholecalciferol (vitamin D3) [Vitamin D3] 25 mcg (1,000 unit) capsule 50 mcg PO DAILY donepezil 10 mg tablet 10 mg PO BEDTIME Qty: 90 3RF ferumoxytol [Feraheme] 510 mg/17 mL (30 mg/mL) solution 510 mg IV Q3D Qty: 17 0RF Rx Instructions: administer at a rate of up to 1 mL /sec (30 mg /sec ) lisinopril 2.5 mg tablet 2.5 mg PO DAILY ferrous sulfate [FeroSul] 325 mg (65 mg iron) tablet 325 mg PO DAILY ezetimibe 10 mg tablet 10 mg PO DAILY metformin 1,000 mg tablet 1,000 mg PO BID Referrals: Pancho Ledesma DO [Primary Care Provider] - Stand Alone Forms: Patient Portal/API
--- NOTE | 2023-11-28 22:03 | PC.NURSE ---
Pt given half a turkey sandwich, unsweetened apple sauce, and water per MD Najera verbal order. Pt tolerating PO intake. No complaints at this time.
[2023-11-28 22:06] LABS: Troponin I < 0.012 ng/mL (0.01-0.034)
[2023-11-28 22:16] LABS: Bacteria Urine None Seen; Culture Indicated Urine Cult Not Indicated; RBC Urine None Seen (0-5/HPF); Squamous Epithelial Cell Urine 0-1 /HPF (0-5/HPF); Urine Volume 10mL (spun); WBC Urine None Seen (0-5/HPF)
--- NOTE | 2023-11-28 22:55 | PC.NURSE ---
Nini Gant sister Ermias son. Family heading home for the night. Told them we will call with any change to patient condition or updates.
== END 2023-11-28 23:57 | disposition home or self-care (01) ==
PROVIDERS: Emergency Provider Emergency Medicine; Family Provider Physician Assistant Medical; PCP Family Medicine
DX: E11.649 Type 2 diabetes mellitus with hypoglycemia without coma (principal); Z79.4 Long term (current) use of insulin; R00.0 Tachycardia, unspecified
CPT/HCPCS: 36415; 80048; 81003; 81015; 82550; 82962; 83690; 84484; 85025; 93005; 93010; 99283; 99284

== ENCOUNTER → 2024-01-18 | Outpatient (CLI) | payer MEDICARE, OTHER, SELFPAY ==
--- NOTE | 2024-01-20 23:10 | DI.NM.S_ITS ---
DATE OF SERVICE: 01/18/2024 PROCEDURE: Pharmacological perfusion study. INDICATIONS: Known history of ischemic cardiomyopathy with previous infarction, PCI, infarction in the LAD and RCA territory as per previous perfusion study of July 2014, right bundle branch block, left anterior fascicular block, chest pain. RADIOPHARMACEUTICAL: 26.1 millicuries of technetium-99m Myoview IV was injected at stress and 26.3 millicuries of technetium-99m Myoview IV was injected at rest. CARDIAC STRESS: The patient underwent a Lexiscan perfusion study under the supervision of an attending staff. The patient remained hemodynamically stable. Minimal dyspnea. No chest discomfort. Baseline rhythm was sinus with right bundle branch block and left anterior fascicular block. During stress, no convincing ischemic changes seen. No new significant arrhythmias. RAW DATA: There is increased subdiaphragmatic activity. GATED STUDY: Stress LV ejection fraction 42% with inferior wall, inferoapex, septum hypokinesis. Resting LV ejection fraction 53%. Resting end-diastolic volume 150 mL. TID ratio 1.13. MYOCARDIAL PERFUSION SCAN: There were are no prone images. Resting supine and stress supine images were compared to each other. Multiple perfusion defects. 1. There is a large size, severely decreased perfusion of inferior wall extending into the inferoapex, inferolateral wall as well as inferoseptum, which is predominantly fixed, consistent with dominant RCA territory infarction. 2. In addition to RCA territory infarction, there is a moderate size, moderate to severely decreased perfusion of mid to distal anterior wall as well as base to mid anterior septum and anteroapex. There is mild reversibility in the distal anterior wall segment. Mostly fixed defect. CONCLUSION: 1. This is an abnormal myocardial perfusion study consistent with a large infarction in the right coronary artery territory involving the entire inferior wall extending into the inferolateral wall, inferoapex, as well as inferoseptum. 2. There is also infarction in the left anterior descending artery territory affecting mid to distal anterior wall, anteroapex with mild shana-infarct ischemia around distal anterior wall. Similar findings were seen on perfusion scan of July 2014. At that time also post exercise ejection fraction 44% and resting left ventricular ejection fraction was 53%. Sunny Lock - TI/ana paula/FIORDALIZA doc#: [id number]/job#: [id number] dd: 01/20/2024 17:31:00 dt: 01/20/2024 22:25:00 DICTATING MD/COPIES TO: Liborio Loja MD COPIES MNE: ALEYDA;
== END ==
PROVIDERS: Family Provider Physician Assistant Medical; PCP Family Medicine; Referring Provider Nurse Practitioner; Visit Provider Nurse Practitioner
DX: R07.89 Other chest pain (principal); R94.39 Abnormal result of other cardiovascular function study; I25.2 Old myocardial infarction; I25.10 Atherosclerotic heart disease of native coronary artery without angina pectoris; Z95.5 Presence of coronary angioplasty implant and graft
CPT/HCPCS: 78452; 93017; A9502; J2785

== ENCOUNTER → 2024-06-10 14:23 | Outpatient (CLI) | payer MEDICARE, OTHER, SELFPAY ==
[2024-06-10 16:01] LABS: Prostate Specific Antigen 0.187 ng/mL (0.10-4.00)
== END ==
PROVIDERS: Family Provider Physician Assistant Medical; PCP Family Medicine; Referring Provider Specialist; Visit Provider Specialist
DX: N40.1 Benign prostatic hyperplasia with lower urinary tract symptoms (principal); N13.8 Other obstructive and reflux uropathy
CPT/HCPCS: 36415; 84153

== ENCOUNTER → 2024-06-14 15:01 | Outpatient (CLI) | payer MEDICARE, OTHER, SELFPAY | PROVIDERS: Family Provider Physician Assistant Medical; PCP Family Medicine; Visit Provider Urology | DX: N40.1 Benign prostatic hyperplasia with lower urinary tract symptoms (principal); N13.8 Other obstructive and reflux uropathy | CPT/HCPCS: 87077; 87086 ==

== ENCOUNTER 2024-06-20 14:52 | Emergency (ER) | payer MEDICARE, OTHER, SELFPAY ==
[2024-06-20 14:56] VITALS: BP 139/65; PULSE 62; RESP 16; TEMP 36.7; O2SAT 96; BMI 22.9
--- NOTE | 2024-06-20 15:22 | PC.NURSE ---
Discussed w/ Dr. White. She determined safe for fast track as pt is here strickly for script. is with pt and is a good historian.
--- NOTE | 2024-06-20 15:40 | ED_ITS ---
HPI - General Adult <Remington Olson PA-C - Last Filed: 06/20/24 15:53> General Chief complaint: Diabetic Problem Stated complaint: High Blood Sugar, out of insulin Time Seen by Provider: 06/20/24 15:40 Source: patient Mode of arrival: Ambulatory History of Present Illness HPI narrative: This is a 69-year-old male presents emergency department due to solely requiring a refill of his NovoLog medication. States that he was a continuous glucose monitor as well as an insulin pump but he ran out of the NovoLog medication this morning. He reports mild lightheadedness solely states this is chronic for him. Denies any other physical symptoms. Requesting solely a medication refill. Related Data Home Medications Medication Instructions Recorded Confirmed cyanocobalamin (vitamin B-12) 1,000 mcg PO DAILY 10/06/21 06/20/24 1,000 mcg capsule nitroglycerin 0.4 mg sublingual 0.4 mg sublingual Q5M PRN 10/06/21 06/20/24 tablet (Nitrostat) blood sugar diagnostic (Contour 11/05/22 06/20/24 Next Test Strips) cholecalciferol (vitamin D3) 25 50 mcg PO DAILY 11/05/22 06/20/24 mcg (1,000 unit) capsule (Vitamin D3) cilostazol 50 mg tablet 100 mg PO QAM 11/05/22 06/20/24 clopidogrel 75 mg tablet 75 mg PO DAILY 11/05/22 06/20/24 empagliflozin 10 mg tablet 10 mg PO QAM 11/05/22 06/20/24 (Jardiance) glucagon 3 mg/actuation nasal 3 mg intranasal ONCE 11/05/22 06/20/24 spray (Baqsimi) insulin aspart U-100 100 unit/mL 1 sliding scale dose SUBCUT 11/05/22 06/20/24 subcutaneous solution (Novolog USEASDIRECTD U-100 Insulin aspart) magnesium chloride 64 mg 64 mg PO DAILY 11/05/22 06/20/24 tablet,extended release rosuvastatin 5 mg tablet 5 mg PO DAILY 11/05/22 06/20/24 ezetimibe 10 mg tablet 10 mg PO DAILY 07/08/23 06/20/24 metformin 1,000 mg tablet 1,000 mg PO BID 08/05/23 06/20/24 lisinopril 5 mg tablet 5 mg PO DAILY 02/01/24 06/20/24 multivitamin with iron 1 tab PO DAILY Low iron level 05/19/24 06/20/24 Previous Rx's Medication Instructions Recorded donepezil 10 mg tablet 10 mg PO BEDTIME #90 tabs 01/01/24 memantine 5 mg tablet (Namenda) 5 mg PO BID #180 tabs 02/01/24 tamsulosin 0.4 mg capsule 0.4 mg PO BEDTIME #90 caps 06/13/24 mirabegron 50 mg tablet,extended 50 mg PO DAILY #90 tabs 06/14/24 release 24 hr insulin aspart U-100 100 unit/mL 1 sliding scale dose SUBCUT 06/20/24 subcutaneous solution (Novolog USEASDIRECTD #10 mL U-100 Insulin aspart) Allergies Allergy/AdvReac Type Severity Reaction Status Date / Time levothyroxine Allergy Verified 06/20/24 14:46 Quinolones Allergy Verified 06/20/24 14:46 levofloxacin AdvReac Severe Hallucinati Verified 06/20/24 14:46 ng clindamycin AdvReac Intermediate Rash Verified 06/20/24 14:46 spironolactone AdvReac Intermediate rash Verified 06/20/24 14:46 Review of Systems <Remington Olson PA-C - Last Filed: 06/20/24 15:53> Review of Systems Narrative: GENERAL: Denies chills, fatigue, malaise, fever, sweats. HEENT: Denies sinus pain, ear pain, sore throat, difficulty swallowing, dizziness. RESPIRATORY: Denies dyspnea, cough, wheezing, hemoptysis, sputum. CARDIOVASCULAR: Denies chest pain, palpitations, orthopnea, edema, GASTROINTESTINAL: Denies nausea, vomiting, abdominal pain, diarrhea, constipation, melena. : Denies dysuria, frequency, incontinence, hematuria, urinary retention. MUSCULOSKELETAL: denies weakness, joint pain, or bony pain SKIN: Denies rash, skin lesions, or other NEUROLOGIC: Reports lightheadedness which is chronic, Denies weakness, headache, numbness, change in speech, confusion, seizures, incoordination. PSYCHIATRIC: No concerning psychosocial issues. 12 point review of systems is negative except for those stated above Patient History <Remington Olson PA-C - Last Filed: 06/20/24 15:53> Medical History Hypertension Type 1 diabetes mellitus GERD (gastroesophageal reflux disease) Elevated LFTs Iron deficiency anemia History of UTI BPH w urinary obs/LUTS Urinary incontinence without sensory awareness Urinary incontinence due to severe physical disability Sleep apnea Ankle fracture, right Mumps Measles Chicken pox History of urinary incontinence Fecal incontinence Hemorrhoid Colitis Diastolic heart failure Hyperlipidemia Benign essential HTN Type 2 diabetes mellitus without complication, with long-term current use of insulin (~2005) Dementia Recurrent UTI Diabetes mellitus, insulin dependent (IDDM), controlled CAD (coronary artery disease) Surgical History Anesthesia History of cataract removal with insertion of prosthetic lens (~2021) H/O heart artery stent History of heart artery stent Urethral diverticulum Family History Mother Polycystic kidney History of heart disease Hypertension Father Coronary artery disease Brother Diabetes mellitus History of heart disease Polycystic kidney Social History Smoking Status: Never smoker Smoking Status: Never smoker alcohol intake frequency: a few times a week Substance Use Type: does not use Exam <Remington Olson PA-C - Last Filed: 06/20/24 15:53> Narrative Exam Narrative: GENERAL: Well-developed patient, in mild distress. HEAD: Atraumatic. Normocephalic. EYES: Pupils equal round and reactive. Extraocular motions intact. No scleral icterus. No injection or drainage. ENT: Nose without bleeding, purulent drainage. Throat without erythema, tonsillar hypertrophy or exudate. Airway patent. NECK: Trachea midline. Non tender EXTREMITIES: No edema or joint tenderness. NEURO: AOx3. SKIN: No rash or erythema of visible areas Initial Vital Signs Initial Vital Signs: Vital Signs Temperature 98.1 F 06/20/24 14:56 Pulse Rate 62 06/20/24 14:56 Respiratory Rate 16 06/20/24 14:56 Blood Pressure 139/65 06/20/24 14:56 Pulse Oximetry 96 06/20/24 14:56 Oxygen Delivery Method Room Air 06/20/24 14:56 <Estrellita White DO - Last Filed: 06/21/24 07:32> Initial Vital Signs Initial Vital Signs: Vital Signs Temperature 98.1 F 06/20/24 14:56 Pulse Rate 62 06/20/24 14:56 Respiratory Rate 16 06/20/24 14:56 Blood Pressure 139/65 06/20/24 14:56 Pulse Oximetry 96 06/20/24 14:56 Oxygen Delivery Method Room Air 06/20/24 14:56 Course <Remington Olson PA-C - Last Filed: 06/20/24 15:53> Vital Signs Vital signs: Vital Signs - 8 hr 06/20/24 14:56 Temperature 98.1 F Pulse Rate 62 Respiratory Rate 16 Blood Pressure 139/65 Pulse Oximetry 96 Oxygen Delivery Method Room Air <Estrellita White DO - Last Filed: 06/21/24 07:32> Vital Signs Vital signs: Vital Signs - 8 hr 06/20/24 14:56 Temperature 98.1 F Pulse Rate 62 Respiratory Rate 16 Blood Pressure 139/65 Pulse Oximetry 96 Oxygen Delivery Method Room Air Medical Decision Making <Remington Olson PA-C - Last Filed: 06/20/24 15:53> Lab Data Labs: Point of Care Testing Glucose POC 348 Point of care testing: Point of Care Testing Glucose POC 348 MDM Narrative Medical decision making narrative: ED course: This is a 69-year-old male presents emergency department due to solely a medication refill of his NovoLog. This was sent to the pharmacy. Patient will continue to use his continuous glucose monitor as well as insulin pump as directed. He was not reporting a new physical symptoms. Point of care glucose was 348. Patient declining any kind of workup. Patient was continuing to use his NovoLog as prescribed. CC: Medication refill Complicating co-morbidities: Insulin-dependent diabetes Data collected from: Previous notes Medical records reviewed: Patient was seen 7 months ago due to hypoglycemia. Is a insulin-dependent diabetic. Has a continuous glucose monitor as well as insulin pump. Lab work was reassuring. Recommended follow up with PCP. Differential considered, but not limited to: HHS, DKA, hyperglycemia Exam documented above, pertinent findings include: No abnormal findings Lab Test results independently reviewed as above. Pertinent findings: POC glucose was 348 Imaging studies independently reviewed: None obtained Scores Used: None MIPS Elements: None Consultations: None Treatments: None Re-evaluations: None Discussion: Discussed plan with the patient was comfortable with the plan Diagnosis: Medication refill Disposition: see below, along with detailed discharge instructions that have been reviewed with patient as well as indications for ED re-evaluation and additional outpatient follow up <Estrellita White DO - Last Filed: 06/21/24 07:32> Lab Data Labs: Point of Care Testing Glucose POC 348 Point of care testing: Point of Care Testing Glucose POC 348 Discharge Plan Departure Patient Disposition: Home Clinical Impression: Medication refill Activity Restrictions/Additional Instructions: Thank you for coming to the [facility] Emergency Department today. I sent the NovoLog medication to [facility] in [place]. Please use as prescribed. Please do best to have routine visit to the primary care provider to avoid visits like this in the future. Please return to the emergency department if you develop any nausea, vomiting, altered mental status, abdominal pain, or any other concerning signs or symptoms. I hope you feel better soon. Please follow up with your primary care provider within a week if your symptoms continue. If you do not have a primary care provider please contact the [facility] Re source line at [phone]. They will ask some questions about your medical history and help you get set up with a provider in the community. Prescriptions: New insulin aspart U-100 [Novolog U-100 Insulin aspart] 100 unit/mL solution 1 sliding scale dose SUBCUT USEASDIRECTD Qty: 10 0RF No Action nitroglycerin [Nitrostat] 0.4 mg tablet, sublingual 0.4 mg sublingual Q5M PRN Rx Instructions: do not exceed 3 doses per episode cyanocobalamin (vitamin B-12) 1,000 mcg capsule 1,000 mcg PO DAILY donepezil 10 mg tablet 10 mg PO BEDTIME Qty: 90 3RF tamsulosin 0.4 mg capsule 0.4 mg PO BEDTIME Qty: 90 3RF Baqsimi 3 mg/actuation spray,non-aerosol 3 mg intranasal ONCE Rx Instructions: as a single dose insulin aspart U-100 [Novolog U-100 Insulin aspart] 100 unit/mL solution 1 sliding scale dose SUBCUT USEASDIRECTD Rx Instructions: use 160 units every 3 days via insulin pump (DME) Contour Next Test Strips Strip See Rx Instructions .Route Rx Instructions: As directed Jardiance 10 mg tablet 10 mg PO QAM cilostazol 50 mg tablet 100 mg PO QAM magnesium chloride 64 mg tablet extended release 64 mg PO DAILY clopidogrel 75 mg tablet 75 mg PO DAILY rosuvastatin 5 mg tablet 5 mg PO DAILY cholecalciferol (vitamin D3) [Vitamin D3] 25 mcg (1,000 unit) capsule 50 mcg PO DAILY ezetimibe 10 mg tablet 10 mg PO DAILY metformin 1,000 mg tablet 1,000 mg PO BID multivitamin with iron Tablet 1 tab PO DAILY lisinopril 5 mg tablet 5 mg PO DAILY memantine [Namenda] 5 mg tablet 5 mg PO BID Qty: 180 3RF mirabegron 50 mg tablet extended release 24 hr 50 mg PO DAILY Qty: 90 0RF Referrals: Pancho Ledesma DO [Primary Care Provider] - Stand Alone Forms: Patient Portal/API ED Sign-out <Estrellita White DO - Last Filed: 06/21/24 07:32> Cosign ED Attending Sabiha Attestation: I was immediately available in the department for consultation.
[2024-06-20 16:05] VITALS: BP 140/67; PULSE 64; RESP 18; TEMP 36.7; O2SAT 98
== END 2024-06-20 16:06 | disposition home or self-care (01) ==
PROVIDERS: Emergency Provider Physician Assistant Medical; Family Provider Physician Assistant Medical; PCP Family Medicine
DX: E11.65 Type 2 diabetes mellitus with hyperglycemia (principal); Z76.0 Encounter for issue of repeat prescription
CPT/HCPCS: 82962; 99281

== ENCOUNTER → 2024-07-12 16:33 | Outpatient (CLI) | payer MEDICARE, OTHER, SELFPAY | PROVIDERS: Family Provider Physician Assistant Medical; PCP Family Medicine; Visit Provider Physician Assistant | DX: T14.8XXA Other injury of unspecified body region, initial encounter (principal) | CPT/HCPCS: 87070; 87075; 87205 ==

== ENCOUNTER → 2024-07-12 16:39 | Outpatient (CLI) | payer MEDICARE, OTHER, SELFPAY ==
--- NOTE | 2024-07-12 16:40 | DI.RAD.S_ITS ---
PROCEDURE: XR TOE RT MIN 2V INDICATIONS: wound to lateral great toe at cuticle TECHNIQUE: 3 views of the 1st toe(s) acquired. COMPARISON: None. FINDINGS: Bones: No fractures or dislocations. No gross bony erosive changes. Mild osteoarthritic changes are noted in 1st MTP joint and 1st interphalangeal joint. No suspicious bony lesions. Soft tissues: No suspicious soft tissue densities. IMPRESSION: Mild great toe osteoarthritis. No fracture or dislocation. No radiographic evidence of osteomyelitis. Dictated by: Irving Monique M.D. on 07/14/2024 at 11:04 Approved by: Irving Monique M.D. on 07/14/2024 at 11:05
== END ==
PROVIDERS: Family Provider Physician Assistant Medical; PCP Family Medicine; Referring Provider Physician Assistant; Visit Provider Physician Assistant
DX: E10.9 Type 1 diabetes mellitus without complications (principal); T14.8XXA Other injury of unspecified body region, initial encounter; M19.071 Primary osteoarthritis, right ankle and foot
CPT/HCPCS: 73660; 87070; 87075; 87077; 87147; 87186; 87205

== ENCOUNTER → 2024-07-15 10:37 | Outpatient (CLI) | payer MEDICARE, OTHER, SELFPAY ==
[2024-07-15 13:06] LABS: Hematocrit 43.9 % (41-53); Mean Corpuscular HGB Conc 34.2 % (30-36); Mean Corpuscular Hemoglobin 31.7 PG (26-34); Mean Corpuscular Volume 92.6 fL (80-100); Platelet Count 193 X10^3/uL (150-400); Red Blood Cell Count 4.73 X10^6/uL (4.5-5.9); Red Cell Distribution Width 13.9 % (11.6-14.8); White Blood Cell Count 7.6 X10^3/uL (4.5-11.0)
[2024-07-15 13:25] LABS: Alanine Aminotransferase 79 IU/L (<50); Albumin 3.6 g/dL (3.5-5.0); Alkaline Phosphatase 74 U/L (38-126); Aspartate Aminotransferase 43 IU/L (17-59); BUN Creatinine Ratio 29.7 (6-22); Bilirubin Total 0.9 mg/dL (0.2-1.3); Blood Urea Nitrogen 30 mg/dL (9-20); Calcium 9.2 mg/dL (8.4-10.2); Carbon Dioxide 26 mmol/L (22-32); Chloride 100 mmol/L (98-107); Estimated Glomerular Filt Rate > 60 mL/min (>60); Globulin 1.8 g/dL (1.7-4.1); Glucose 127 mg/dL (80-110); HEMOLYSIS < 15 (0-50); Magnesium 1.7 mg/dL (1.6-2.3); Potassium 4.3 mmol/L (3.4-5.1); Sodium 134 mmol/L (137-145); Total Protein 5.4 g/dL (6.3-8.2)
[2024-07-18 08:37] LABS: Cholesterol, Total 102 mg/dL (100-199); HDL-Cholesterol 51 mg/dL (>39); HDL-Particle (Total) 36.3 umol/L (>=30.5); Historical Reading Comment: (.); LDL Particle 419 nmol/L (<1000); LDL Size 19.7 nm (>20.5); LDL-Cholsterol 34 mg/dL (0-99); LP-IR Score 25 (<=45); Small LDL- Particle 251 nmol/L (<=527); Triglycerides 84 mg/dL (0-149)
== END ==
PROVIDERS: Family Provider Physician Assistant Medical; PCP Family Medicine; Referring Provider Specialist; Visit Provider Specialist
DX: E78.2 Mixed hyperlipidemia (principal); I10 Essential (primary) hypertension; I25.10 Atherosclerotic heart disease of native coronary artery without angina pectoris
CPT/HCPCS: 36415; 80053; 80061; 83704; 83735; 85027

== ENCOUNTER 2024-11-23 22:26 | Emergency (ER) | payer MEDICARE, OTHER, SELFPAY ==
[2024-11-23 22:26] VITALS: BP 134/74; PULSE 53; RESP 20; TEMP 36.3; O2SAT 100; BMI 19.3
--- NOTE | 2024-11-23 22:28 | DI.RAD.S_ITS ---
PROCEDURE: XR CHEST 1V INDICATIONS: chest pain TECHNIQUE: One view of the chest was acquired. COMPARISON: [facility], CR, XR CHEST 1V, 09/08/2022, 13:36. FINDINGS: Surgical changes and devices: None. Lungs and pleura: Lungs are clear. No pleural effusions or pneumothorax. Mediastinum: Mediastinal contours appear normal. Heart size is normal. Bones and chest wall: No suspicious bony lesions. Overlying soft tissues appear unremarkable. IMPRESSION: No acute cardiopulmonary pathology. Dictated by: Irving Monique M.D. on 11/23/2024 at 22:43 Approved by: Irving Monique M.D. on 11/23/2024 at 22:43
[2024-11-23 22:30] VITALS: PULSE 56; RESP 11; O2SAT 98
[2024-11-23 22:31] VITALS: BP 134/74; PULSE 55; RESP 13; O2SAT 99
--- NOTE | 2024-11-23 22:34 | EKG_ITS ---
[place] [id number] [place] [id number] Test Date: 2024-11-23 Pat Name: Sunny Lock Department: [facility] Room: Gender: Male Criminal Attorney: JORGE ALBERTO JOYA : 1955 Requested By: Order Number: [id number] Reading MD: Sunny Durham Measurements Intervals [place] Rate: 66 P: OK: QRS: -81 QRSD: 136 T: 32 QT: 442 QTc: 463 Interpretive Statements Atrial fibrillation with a competing junctional pacemaker Left axis deviation Right bundle branch block Cannot rule out Anteroseptal infarct , age undetermined Electronically Signed On 11-23-2024 23:46:32 PST by Sunny Durham
[2024-11-23] MEDS: ASPIRIN 81 MG CHEW TAB 324 MG PO (22:43)
[2024-11-23 23:00] VITALS: PULSE 55; RESP 14; O2SAT 98
[2024-11-23 23:06] LABS: Add Manual Diff / Slide Review NO; Basophils Absolute Auto 100 /uL (0-100); Basophils Percent Auto 0.5 % (0-2); Eosinophils Absolute Auto 900 /uL (0-450); Eosinophils Percent Auto 7.6 % (2-4); Hematocrit 42.8 % (41-53); Hemoglobin 14.4 g/dL (13.5-17.5); Lymphocytes Absolute Auto 1100 /uL (1100-4500); Lymphocytes Percent Auto 9.2 % (25-40); Mean Corpuscular HGB Conc 33.6 % (30-36); Mean Corpuscular Hemoglobin 30.3 PG (26-34); Mean Corpuscular Volume 90.4 fL (80-100); Monocytes Absolute Auto 500 /uL (0-900); Monocytes Percent Auto 3.9 % (3-14); Neutrophils Absolute Auto 9300 /uL (1500-7000); Neutrophils Percent Auto 78.8 % (50-75); Platelet Count 229 X10^3/uL (150-400); Red Blood Cell Count 4.74 X10^6/uL (4.5-5.9); Red Cell Distribution Width 15.1 % (11.6-14.8); White Blood Cell Count 11.7 X10^3/uL (4.5-11.0)
--- NOTE | 2024-11-23 23:08 | ED_ITS ---
HPI - Chest Pain <Sunny Muñiz, DO - Last Filed: 11/25/24 04:20> General Chief Complaint: Abdominal Pain Stated Complaint: chest pain Time Seen by Provider: 11/23/24 22:42 Source: EMS Mode of arrival: EMS Limitations: no limitations History of Present Illness HPI narrative: 69-year-old male with a history of hypertension, CHF, diabetes, hyperlipidemia, VT with stent follows with Dr. Alejandro Troncoso at [facility] for cardiology comes into the ED via EMS for evaluation of chest pain states sharp started around 9:00 a.m. today. States that he did take 2 nitros prior to arrival states that it helped his symptoms, currently not complaining of any symptoms at this time. Patient not on any anticoagulation not complaining of any shortness of breath fever chills nausea vomiting or any other GI/ symptoms at this time. Patient states that he does have an appointment with his manager plan next month for follow up. Related Data Home Medications Medication Instructions Recorded Confirmed cyanocobalamin (vitamin B-12) 1,000 mcg PO DAILY 10/06/21 10/20/24 1,000 mcg capsule nitroglycerin 0.4 mg sublingual 0.4 mg sublingual Q5M PRN Chest 10/06/21 11/24/24 tablet (Nitrostat) Pain blood sugar diagnostic (Contour 11/05/22 10/20/24 Next Test Strips) cholecalciferol (vitamin D3) 25 50 mcg PO DAILY 11/05/22 10/20/24 mcg (1,000 unit) capsule (Vitamin D3) clopidogrel 75 mg tablet 75 mg PO DAILY 11/05/22 11/24/24 empagliflozin 10 mg tablet 10 mg PO QAM 11/05/22 11/24/24 (Jardiance) glucagon 3 mg/actuation nasal 3 mg intranasal ONCE 11/05/22 11/24/24 spray (Baqsimi) insulin aspart U-100 100 unit/mL 1 sliding scale dose SUBCUT 11/05/22 11/24/24 subcutaneous solution (Novolog USEASDIRECTD U-100 Insulin aspart) magnesium chloride 64 mg 64 mg PO DAILY 11/05/22 11/24/24 tablet,extended release rosuvastatin 5 mg tablet 5 mg PO DAILY 11/05/22 11/24/24 metformin 1,000 mg tablet 1,000 mg PO BID 08/05/23 11/24/24 lisinopril 5 mg tablet 5 mg PO DAILY 02/01/24 11/24/24 multivitamin with iron 1 tab PO DAILY Low iron level 05/19/24 10/20/24 L.acidophilus-B.animalis-B.longum 1 cap PO DAILY 09/02/24 10/20/24 15 billion cell capsule (Florajen Digestion) ascorbic acid (vitamin C) 500 mg 500 mg PO 09/02/24 10/20/24 tablet (Vitamin C) omega 7-hia-ehr-fish oil 1,000 mg 1 cap PO DAILY 09/02/24 10/20/24 (120 mg-180 mg) capsule (Fish Oil) Previous Rx's Medication Instructions Recorded donepezil 10 mg tablet 10 mg PO BEDTIME #90 tabs 01/01/24 memantine 5 mg tablet (Namenda) 5 mg PO BID #180 tabs 02/01/24 tamsulosin 0.4 mg capsule 0.4 mg PO BEDTIME #90 caps 06/13/24 insulin aspart U-100 100 unit/mL 1 sliding scale dose SUBCUT 06/20/24 subcutaneous solution (Novolog USEASDIRECTD #10 mL U-100 Insulin aspart) Allergies Allergy/AdvReac Type Severity Reaction Status Date / Time levothyroxine Allergy Verified 11/24/24 14:27 Quinolones Allergy Verified 11/24/24 14:27 levofloxacin AdvReac Severe Hallucinati Verified 11/24/24 14:27 ng clindamycin AdvReac Intermediate Rash Verified 11/24/24 14:27 spironolactone AdvReac Intermediate rash Verified 11/24/24 14:27 Review of Systems <Sunny Muñiz, - Last Filed: 11/25/24 04:20> Review of Systems Narrative: General: Denies fever, chills, weight loss HEENT: Denies headache, eye drainage, eye irritation, head trauma, sore throat, voice change Cardiovascular: Positive chest pain, denies palpitations, shortness of breath, tachycardia Respiratory: Denies any shortness of breath, cough, wheeze, stridor GI/: Denies any abdominal pain, nausea, vomiting, diarrhea, bright red blood per rectum, melanotic stools, urinary frequency, urinary retention, dysuria, hematuria MSK: Denies any joint pain, muscle pains, swelling Skin: Denies any rashes, lesions, discoloration Neuro: Denies any headache, lightheadedness, dizziness, fainting, weakness Psych: Denies SI/HI Patient History <Sunny Muñiz DO - Last Filed: 11/25/24 04:20> Medical History (Updated 11/24/24 @ 03:05 by Sunny Muñiz DO) Arm contusion Abrasions of multiple sites Inguinal hernia of right side without obstruction or gangrene Hypertension Type 1 diabetes mellitus GERD (gastroesophageal reflux disease) Elevated LFTs Iron deficiency anemia History of UTI BPH w urinary obs/LUTS Urinary incontinence without sensory awareness Urinary incontinence due to severe physical disability Sleep apnea Ankle fracture, right Mumps Measles Chicken pox History of urinary incontinence Fecal incontinence Hemorrhoid Colitis Diastolic heart failure Hyperlipidemia Benign essential HTN Type 2 diabetes mellitus without complication, with long-term current use of insulin (~2005) Dementia Recurrent UTI Diabetes mellitus, insulin dependent (IDDM), controlled CAD (coronary artery disease) Surgical History (Updated 10/23/24 @ 12:02 by Teresa Ramos DO) Anesthesia History of cataract removal with insertion of prosthetic lens (~2021) H/O heart artery stent History of heart artery stent Urethral diverticulum Family History Mother Polycystic kidney History of heart disease Hypertension Father Coronary artery disease Brother Diabetes mellitus History of heart disease Polycystic kidney Social History marital status: household members: spouse lives independently: Yes occupational status: previously employed Smoking Status: Never smoker alcohol intake: current Smoking Status: Never smoker alcohol intake frequency: a few times a week Alcohol type: beer and wine Exam <Sunny Muñiz DO - Last Filed: 11/25/24 04:20> Narrative Exam Narrative: General: Cooperative, comfortable, well-developed, not in acute distress HEENT: Normocephalic, atraumatic, PERRLA, normal sclera, eyelids normal, Neck: Active full range of motion, atraumatic Chest: Normal to inspection, negative crepitus, no overlying erythema ecchymosis Respiratory: Normal respiratory effort, not in acute respiratory distress, clear to auscultation bilaterally negative cough, wheeze, tachypnea, rhonchi, rales Cardiology: Regular rate rhythm negative gallop, murmur, rubs GI/: Normal to inspection, soft, nonrigid, no tenderness to palpation, exam deferred MSK: Full range of active range of motion of all 4 extremities, atraumatic Skin: No rashes lesions noted Neuro: Alert awake oriented x3, moves all 4 extremities spontaneously, cranial nerves intact, able to answer all questions appropriately follows commands appropriately Psych: Cooperative, negative suicidal or homicidal ideations Initial Vital Signs Initial Vital Signs: Vital Signs Temperature 97.3 F L 11/23/24 22:26 Pulse Rate 53 L 11/23/24 22:26 Respiratory Rate 20 11/23/24 22:26 Blood Pressure 134/74 11/23/24 22:26 Pulse Oximetry 100 11/23/24 22:26 Oxygen Delivery Method Room Air 11/23/24 22:26 <Estrellita White, DO - Last Filed: 11/25/24 18:15> Initial Vital Signs Initial Vital Signs: Vital Signs Temperature 97.3 F L 11/23/24 22:26 Pulse Rate 53 L 11/23/24 22:26 Respiratory Rate 20 11/23/24 22:26 Blood Pressure 134/74 11/23/24 22:26 Pulse Oximetry 100 11/23/24 22:26 Oxygen Delivery Method Room Air 11/23/24 22:26 Course <Sunny Muñiz, DO - Last Filed: 11/25/24 04:20> Orders Ordered: Discontinued Medications Aspirin (Aspirin 81 Mg Chew Tab) 324 mg PO NOW ONE Stop: 11/23/24 22:29 Last Admin: 11/23/24 22:43 Dose: 324 mg Documented By: Enoxaparin Sodium (Enoxaparin 40 Mg/0.4 Ml Syringe) 60 mg 1 mg/kg (60 mg) SUBCUT NOW ONE Stop: 11/24/24 03:06 Last Admin: 11/24/24 03:18 Dose: 60 mg Documented By: Sodium Chloride (Normal Saline 0.9%) 1,000 mls @ 1,000 mls/hr IV BOLUS ONE Stop: 11/24/24 00:45 Last Infusion: 11/24/24 01:23 Dose: Infused Documented By: Admin: 11/24/24 00:03 Dose: 1,000 mls/hr Documented By: Piperacillin Sod/Tazobactam (Sod 4.5 gm/ Sodium Chloride) 100 mls @ 200 mls/hr IV NOW ONE Stop: 11/24/24 00:45 Last Infusion: 11/24/24 02:10 Dose: Infused Documented By: Admin: 11/24/24 01:34 Dose: 200 mls/hr Documented By: MR Piperacillin Sod/Tazobactam (Sod 4.5 gm/ Sodium Chloride) 100 mls @ 25 mls/hr IV Q8H PATRICIA Last Admin: 11/24/24 17:54 Dose: 25 mls/hr Documented By: Infusion: 11/24/24 15:43 Dose: Infused Documented By: Infusion: 11/24/24 12:00 Dose: 25 mls/hr Documented By: Infusion: 11/24/24 11:08 Dose: 0 mls/hr Documented By: Admin: 11/24/24 10:00 Dose: 25 mls/hr Documented By: CHAPO Dextrose (D10w) 100 mls @ 999 mls/hr IV PRN PRN PRN Reason: Hypoglycemia Vital Signs Vital signs: Vital Signs - 8 hr 11/24/24 20:32 11/24/24 21:00 Pulse Rate 53 L 81 Respiratory Rate 16 24 Pulse Oximetry 100 100 Oxygen Delivery Method Room Air <Estrellita White, - Last Filed: 11/25/24 18:15> Orders Ordered: Discontinued Medications Aspirin (Aspirin 81 Mg Chew Tab) 324 mg PO NOW ONE Stop: 11/23/24 22:29 Last Admin: 11/23/24 22:43 Dose: 324 mg Documented By: Enoxaparin Sodium (Enoxaparin 40 Mg/0.4 Ml Syringe) 60 mg 1 mg/kg (60 mg) SUBCUT NOW ONE Stop: 11/24/24 03:06 Last Admin: 11/24/24 03:18 Dose: 60 mg Documented By: Sodium Chloride (Normal Saline 0.9%) 1,000 mls @ 1,000 mls/hr IV BOLUS ONE Stop: 11/24/24 00:45 Last Infusion: 11/24/24 01:23 Dose: Infused Documented By: Admin: 11/24/24 00:03 Dose: 1,000 mls/hr Documented By: MR Piperacillin Sod/Tazobactam (Sod 4.5 gm/ Sodium Chloride) 100 mls @ 200 mls/hr IV NOW ONE Stop: 11/24/24 00:45 Last Infusion: 11/24/24 02:10 Dose: Infused Documented By: Admin: 11/24/24 01:34 Dose: 200 mls/hr Documented By: Piperacillin Sod/Tazobactam (Sod 4.5 gm/ Sodium Chloride) 100 mls @ 25 mls/hr IV Q8H [facility] Last Admin: 11/24/24 17:54 Dose: 25 mls/hr Documented By: Infusion: 11/24/24 15:43 Dose: Infused Documented By: Infusion: 11/24/24 12:00 Dose: 25 mls/hr Documented By: Infusion: 11/24/24 11:08 Dose: 0 mls/hr Documented By: Admin: 11/24/24 10:00 Dose: 25 mls/hr Documented By: CHAPO Dextrose (D10w) 100 mls @ 999 mls/hr IV PRN PRN PRN Reason: Hypoglycemia Vital Signs Vital signs: Vital Signs - 8 hr 11/24/24 20:32 11/24/24 21:00 Pulse Rate 53 L 81 Respiratory Rate 16 24 Pulse Oximetry 100 100 Oxygen Delivery Method Room Air MDM - Chest Pain <Sunny Muñiz DO - Last Filed: 11/25/24 04:20> Differential Diagnosis Differential diagnosis: Likely atypical chest pain, st elevation myocardial infarction, costochondritis, chest pain and other (Pneumonia, electrolyte abnormality, pancreatitis) Lab Data 11/23/24 22:58 11/23/24 22:58 Labs: Lab Results 11/23/24 11/24/24 11/24/24 Range/Units 22:58 01:06 03:30 WBC 11.7 H (4.5-11.0) X10^3/uL RBC 4.74 (4.5-5.9) X10^6/uL Hgb 14.4 (13.5-17.5) g/dL Hct 42.8 (41-53) % MCV 90.4 (80-100) fL MCH 30.3 (26-34) PG MCHC 33.6 (30-36) % RDW 15.1 H (11.6-14.8) % Plt Count 229 (150-400) X10^3/uL Neut % (Auto) 78.8 H (50-75) % Lymph % (Auto) 9.2 L (25-40) % Kemper % (Auto) 3.9 (3-14) % Eos % (Auto) 7.6 H (2-4) % Baso % (Auto) 0.5 (0-2) % Neut # (Auto) 9300 H (0474-6592) /uL Lymph # (Auto) 1100 (9943-3132) /uL Kemper # (Auto) 500 (0-900) /uL Eos # (Auto) 900 H (0-450) /uL Baso # (Auto) 100 (0-100) /uL PT 11.5 (9.4-12.5) SECONDS INR 1.0 (0.9-1.3) APTT 32 (25.1-36.5) SECONDS Sodium 134 L (137-145) mmol/L Potassium 4.6 (3.4-5.1) mmol/L Chloride 99 (98-107) mmol/L Carbon Dioxide 28 (22-32) mmol/L BUN 25 H (9-20) mg/dL Creatinine 0.86 (0.66-1.25) mg/dL Estimated GFR > 60 (>60) mL/min BUN/Creatinine Ratio 29.1 H (6-22) Glucose 153 H (80-110) mg/dL Lactate 2.2 H 1.7 (0.7-2.1) mmol/L Calcium 9.0 (8.4-10.2) mg/dL Magnesium 1.8 (1.6-2.3) mg/dL Total Bilirubin 0.6 (0.2-1.3) mg/dL AST 96 H (17-59) IU/L ALT 47 (<50) IU/L Alkaline Phosphatase 62 (38-126) U/L Total Creatine Kinase 34 L (55-170) U/L Troponin I < 0.012 (0.01-0.034) ng/mL NT-Pro-B Natriuret Pep 396 H (<125) pg/mL Total Protein 5.8 L (6.3-8.2) g/dL Albumin 3.6 (3.5-5.0) g/dL Globulin 2.2 (1.7-4.1) g/dL Albumin/Globulin Ratio 1.6 (1.0-2.8) Lipase 1669 H (23-300) U/L Point of Care Testing Glucose POC 129 Imaging Data Chest x-ray: Radiologist's Impression: [address] [address] XRay Report Signed Patient: Sunny Lock MR#: [id number] : 1955 Acct:[id number] Age/Sex: 69 / M Date of Service: 11/23/24 Loc: ED Accession Number: [id number] Procedure: XR chest 1V Ordering Provider: Sunny Muñiz D.O. PROCEDURE: XR CHEST 1V INDICATIONS: chest pain TECHNIQUE: One view of the chest was acquired. COMPARISON: Located Within [facility], , XR CHEST 1V, 09/08/2022, 13:36. FINDINGS: Surgical changes and devices: None. Lungs and pleura: Lungs are clear. No pleural effusions or pneumothorax. Mediastinum: Mediastinal contours appear normal. Heart size is normal. Bones and chest wall: No suspicious bony lesions. Overlying soft tissues appear unremarkable. IMPRESSION: No acute cardiopulmonary pathology. ECG Data Interpretation: EKG interpreted ED physician atrial fibrillation at 66 beats per minute, QTC [address] changes no STEMI MDM Narrative Medical decision making narrative: 69-year-old male with a history of CAD stents x6, hyperlipidemia diabetes comes into the ED from home for evaluation chest pain, patient took 2 nitros prior to arrival had cessation of his symptoms. Patient had EKG chest x-ray performed patient found to be new onset paroxysmal AFib, chest x-ray without any acute cardiopulmonary abnormalities, lab work was consistent with acute pancreatitis lipase 1669, CT scan showing possible gallbladder abscess therefore broad- spectrum antibiotics were ordered. Lactate culture was ordered. Patient will require transfer to a tertiary center where Interventional Radiology is available. 2343: Had discussion with Dr. harris (cardiology) who states that so long as patient's troponin negative x2, and patient remains rate controlled given patient's elevated CHADS-VASc score patient should be started on Eliquis, patient has not require admission or transfer at this time given paroxysmal AFib in the setting of acute pancreatitis, states that as long as there is no indication for admission in regards to his pancreatitis patient safe for discharge home and to follow up with Dr. Troncoso, he states that he will send a message to the office to give the patient to call tomorrow to follow up with the patient in regards to his new diagnosis. 0125: Discussed case with general surgeon Dr. Santiago, states that given patient with recent cholecystectomy at [facility] patient should go/be treated back there. 0135: Had discussion with general surgeon Dr. Vázquez at [facility], agrees patient to be sent over will require admission to the general hospitalist service, this patient most likely to have IR versus ERCP. Given the fact that patient may undergo IR will hold off on any anticoagulation at this time. 0150: Discussed case with ER doctor Dr. Fonseca, states will call back after discussing with hospitalist 0200: I received a call back from Dr. fonseca, ER doctor at [facility] who states that he did have a discussion with Dr. Vázquez the general surgeon, they state that patient will most likely require Interventional Radiology rather than ERCP and state that they do not have Interventional Radiology available therefore recommendation is to send patient/transfer patient to place with Interventional Radiology. 0315: Informed that multiple hospitals in the system/area are currently on divert/have no bed availability or IR is available, given the fact that it is uncertain when patient will be transferred for IR services we will anticoagulate patient with Lovenox given new onset AFib. <Estrellita White, DO - Last Filed: 11/25/24 18:15> Lab Data Labs: Lab Results 11/23/24 11/24/24 11/24/24 Range/Units 22:58 01:06 03:30 WBC 11.7 H (4.5-11.0) X10^3/uL RBC 4.74 (4.5-5.9) X10^6/uL Hgb 14.4 (13.5-17.5) g/dL Hct 42.8 (41-53) % MCV 90.4 (80-100) fL MCH 30.3 (26-34) PG MCHC 33.6 (30-36) % RDW 15.1 H (11.6-14.8) % Plt Count 229 (150-400) X10^3/uL Neut % (Auto) 78.8 H (50-75) % Lymph % (Auto) 9.2 L (25-40) % Kemper % (Auto) 3.9 (3-14) % Eos % (Auto) 7.6 H (2-4) % Baso % (Auto) 0.5 (0-2) % Neut # (Auto) 9300 H (2678-6958) /uL Lymph # (Auto) 1100 (2545-9660) /uL Kemper # (Auto) 500 (0-900) /uL Eos # (Auto) 900 H (0-450) /uL Baso # (Auto) 100 (0-100) /uL PT 11.5 (9.4-12.5) SECONDS INR 1.0 (0.9-1.3) APTT 32 (25.1-36.5) SECONDS Sodium 134 L (137-145) mmol/L Potassium 4.6 (3.4-5.1) mmol/L Chloride 99 (98-107) mmol/L Carbon Dioxide 28 (22-32) mmol/L BUN 25 H (9-20) mg/dL Creatinine 0.86 (0.66-1.25) mg/dL Estimated GFR > 60 (>60) mL/min BUN/Creatinine Ratio 29.1 H (6-22) Glucose 153 H (80-110) mg/dL Lactate 2.2 H 1.7 (0.7-2.1) mmol/L Calcium 9.0 (8.4-10.2) mg/dL Magnesium 1.8 (1.6-2.3) mg/dL Total Bilirubin 0.6 (0.2-1.3) mg/dL AST 96 H (17-59) IU/L ALT 47 (<50) IU/L Alkaline Phosphatase 62 (38-126) U/L Total Creatine Kinase 34 L (55-170) U/L Troponin I < 0.012 (0.01-0.034) ng/mL NT-Pro-B Natriuret Pep 396 H (<125) pg/mL Total Protein 5.8 L (6.3-8.2) g/dL Albumin 3.6 (3.5-5.0) g/dL Globulin 2.2 (1.7-4.1) g/dL Albumin/Globulin Ratio 1.6 (1.0-2.8) Lipase 1669 H (23-300) U/L Point of Care Testing Glucose POC 129 ECG Data Attestation: I personally reviewed and interpreted this ECG as follows: Interpretation: EKG interpreted ED physician atrial fibrillation at 66 beats per minute, QTC [address] changes no STEMI Repeat EKG 11/24/2024 at 8:38 a.m. shows sinus bradycardia occasional premature complex, left axis deviation, right bundle-branch block with a rate of 55, WI 160 QRS of 138 QTC of 451. MDM Narrative Medical decision making narrative: 69-year-old male with a history of CAD stents x6, hyperlipidemia diabetes comes into the ED from home for evaluation chest pain, patient took 2 nitros prior to arrival had cessation of his symptoms. Patient had EKG chest x-ray performed patient found to be new onset paroxysmal AFib, chest x-ray without any acute cardiopulmonary abnormalities, lab work was consistent with acute pancreatitis lipase 9, CT scan showing possible gallbladder abscess therefore broad- spectrum antibiotics were ordered. Lactate culture was ordered. Patient will require transfer to a tertiary center where Interventional Radiology is available. 2343: Had discussion with Dr. harris (cardiology) who states that so long as patient's troponin negative x2, and patient remains rate controlled given patient's elevated CHADS-VASc score patient should be started on Eliquis, patient has not require admission or transfer at this time given paroxysmal AFib in the setting of acute pancreatitis, states that as long as there is no indication for admission in regards to his pancreatitis patient safe for discharge home and to follow up with Dr. Troncoso, he states that he will send a message to the office to give the patient to call tomorrow to follow up with the patient in regards to his new diagnosis. 0125: Discussed case with general surgeon Dr. Santiago, states that given patient with recent cholecystectomy at [facility] patient should go/be treated back there. 0135: Had discussion with general surgeon Dr. Vázquez at [facility], agrees patient to be sent over will require admission to the general hospitalist service, this patient most likely to have IR versus ERCP. Given the fact that patient may undergo IR will hold off on any anticoagulation at this time. 0150: Discussed case with ER doctor Dr. Fonseca, states will call back after discussing with hospitalist 0200: I received a call back from Dr. fonseca, ER doctor at [facility] who states that he did have a discussion with Dr. Vázquez the general surgeon, they state that patient will most likely require Interventional Radiology rather than ERCP and state that they do not have Interventional Radiology available therefore recommendation is to send patient/transfer patient to place with Interventional Radiology. 0315: Informed that multiple hospitals in the system/area are currently on divert/have no bed availability or IR is available, given the fact that it is uncertain when patient will be transferred for IR services we will anticoagulate patient with Lovenox given new onset AFib. 0742 11/24/24 Dr. White: Patient signed out to myself by Dr. Muñiz. Note patient will likely need Interventional Radiology versus ERCP at this time seeking placement patient has recent cholecystectomy found to have pancreatitis with a lipase is 1669 but normal AST, ALT alk-phos negative troponin lactate was 2.2 but trending down words to 1.7. Patient has a mild white count 11.7 predominance of neutrophils on percentage. Normal hemoglobin and platelets. imaging found 4.8 x 2.4 cm fluid collection in the gallbladder fossa concerning for biloma versus early abscess collection no discrete pancreatic lesion or ductal dilation no peripancreatic inflammatory changes or pseudocyst no bowel obstruction free air or free fluid. Patient has received a dose of aspirin, fluids, Zosyn and did receive a dose of enoxaparin. EKG reported show atrial fibrillation was repeated today. Looking for transfer calls out to [facility] and multiple facilities. Patient was seen and evaluated by myself he was nontender currently he states he was currently pain-free. He has not insulin pump that he uses that is linked to his phone we will continue with this for his glucose management. We will hold his Plavix. Patient is agreeable to transfer he understands may have to look for other facilities [facility] reported not to have IR available. Patient is waitlisted and several facilities, calls out to multiple facilities. [facility] has been contacted. [address] Dr. White: Spoke with GI at [facility]. Probably ERCP for suspected bile leak, may have to wait depending on anticoagulation and still possible IR drain. 1314 Dr. Jovanny Barillas hospitalist accepts for transfer to [facility] hospital Discharge Plan Departure Patient Disposition: [facility] Clinical Impression: Pancreatitis, Abscess of gallbladder, New onset a-fib Prescriptions: No Action nitroglycerin [Nitrostat] 0.4 mg tablet, sublingual 0.4 mg sublingual Q5M PRN (Reason: Chest Pain) Rx Instructions: do not exceed 3 doses per episode cyanocobalamin (vitamin B-12) 1,000 mcg capsule 1,000 mcg PO DAILY donepezil 10 mg tablet 10 mg PO BEDTIME Qty: 90 3RF tamsulosin 0.4 mg capsule 0.4 mg PO BEDTIME Qty: 90 3RF Baqsimi 3 mg/actuation spray,non-aerosol 3 mg intranasal ONCE Rx Instructions: as a single dose insulin aspart U-100 [Novolog U-100 Insulin aspart] 100 unit/mL solution 1 sliding scale dose SUBCUT USEASDIRECTD Rx Instructions: use 160 units every 3 days via insulin pump (DME) Contour Next Test Strips Strip See Rx Instructions .Route Rx Instructions: As directed Jardiance 10 mg tablet 10 mg PO QAM magnesium chloride 64 mg tablet extended release 64 mg PO DAILY clopidogrel 75 mg tablet 75 mg PO DAILY rosuvastatin 5 mg tablet 5 mg PO DAILY cholecalciferol (vitamin D3) [Vitamin D3] 25 mcg (1,000 unit) capsule 50 mcg PO DAILY metformin 1,000 mg tablet 1,000 mg PO BID multivitamin with iron Tablet 1 tab PO DAILY lisinopril 5 mg tablet 5 mg PO DAILY memantine [Namenda] 5 mg tablet 5 mg PO BID Qty: 180 3RF ascorbic acid (vitamin C) [Vitamin C] 500 mg tablet 500 mg PO Florajen Digestion 15 billion cell capsule 1 cap PO DAILY omega 9-yjs-zno-fish oil [Fish Oil] 1,000 mg (120 mg-180 mg) capsule 1 cap PO DAILY insulin aspart U-100 [Novolog U-100 Insulin aspart] 100 unit/mL solution 1 sliding scale dose SUBCUT USEASDIRECTD Qty: 10 0RF Referrals: Teresa Ramos, [Primary Care Provider] -
[2024-11-23 23:14] LABS: Prothrombin Time 11.5 SECONDS (9.4-12.5)
[2024-11-23 23:16] LABS: PTT Partial Thromboplastin Tim 32 SECONDS (25.1-36.5)
[2024-11-23 23:20] LABS: Alanine Aminotransferase 47 IU/L (<50); Albumin 3.6 g/dL (3.5-5.0); Albumin Globulin Ratio 1.6 (1.0-2.8); BUN Creatinine Ratio 29.1 (6-22); Bilirubin Total 0.6 mg/dL (0.2-1.3); Blood Urea Nitrogen 25 mg/dL (9-20); Carbon Dioxide 28 mmol/L (22-32); Chloride 99 mmol/L (98-107); Creatine Kinase 34 U/L (55-170); Estimated Glomerular Filt Rate > 60 mL/min (>60); Globulin 2.2 g/dL (1.7-4.1); Glucose 153 mg/dL (80-110); Lipase 1669 U/L (23-300); Magnesium 1.8 mg/dL (1.6-2.3); Sodium 134 mmol/L (137-145); Total Protein 5.8 g/dL (6.3-8.2)
[2024-11-23 23:22] LABS: Aspartate Aminotransferase 96 IU/L (17-59); HEMOLYSIS 56 (0-50); Potassium 4.6 mmol/L (3.4-5.1)
[2024-11-23 23:23] LABS: Alkaline Phosphatase 62 U/L (38-126)
[2024-11-23 23:30] VITALS: PULSE 56; RESP 21; O2SAT 98
[2024-11-23 23:31] LABS: NT-proBNP (BNP-Adult 18+) 396 pg/mL (<125); Troponin I < 0.012 ng/mL (0.01-0.034)
--- NOTE | 2024-11-23 23:34 | DI.CT.S_ITS ---
PROCEDURE: CT ABDOMEN PELVIS W CON INDICATIONS: pancreatitis TECHNIQUE: After the administration of intravenous contrast, axial sections acquired from the lung bases to the pubic symphysis. Coronal and sagittal reformats were performed. For radiation dose reduction, the following was used: automated exposure control, adjustment of mA and/or kV according to patient size. COMPARISON: [facility], CR, XR INTRAOPERATIVE CHOLANGIOGRAM, 10/13/2024, 18:53. FINDINGS: Image quality: Diagnostic. Lower Chest: Bibasilar dependent atelectasis is seen. No pleural effusion. Heart size is normal, no pericardial effusion. ABDOMEN: Liver: No solid mass. Gallbladder: Patient is status post cholecystectomy. Ill-defined fluid collection is noted within gallbladder fossa with mild peripheral enhancement measures 4.8 x 2.4 cm in size series 2, image 44. Biliary ducts: No biliary dilation. Pancreas: No ductal dilation. No discrete pancreatic lesion or peripancreatic inflammatory changes. Spleen: Size is within normal limits. Adrenal Glands: No adrenal nodules. Kidneys and Ureters: No hydronephrosis. No solid mass. No complex renal cystic lesion which requires follow up. Stomach and Bowel: There is no bowel obstruction or abnormal bowel wall thickening. Fecal stasis throughout the colon is seen. No mesenteric fat stranding. No peritoneal abscess collection. Peritoneum: No abnormal intraperitoneal fluid. No free air. Ventral Wall: No significant ventral hernia. Abdominal Nodes: No retroperitoneal or mesenteric adenopathy by size criteria. Vessels: Aorta and inferior vena cava are normal in size. PELVIS: Pelvic Organs: Mildly enlarged prostate gland with mass effect on floor of urinary bladder is seen. Bladder: No bladder wall thickening, accounting for underdistention. Pelvic Nodes: No enlarged lymph nodes. Miscellaneous: No inguinal hernias are seen. Bones: No aggressive osseous abnormality. IMPRESSION: 1. Patient is status post cholecystectomy. 4.8 x 2.4 cm fluid collection within gallbladder fossa with mild peripheral enhancement concerning for biloma versus early abscess collection. 2. No discrete pancreatic lesion or pancreatic ductal dilatation. No significant peripancreatic inflammatory changes. No pseudocyst formation. 3. No bowel obstruction or abnormal bowel wall thickening. No peritoneal free fluid or free air. Dictated by: Irving Monique M.D. on 11/24/2024 at 0:17 Approved by: Irving Monique M.D. on 11/24/2024 at 0:22
[2024-11-24] VITALS (53 sets, daily range): BP systolic 108–150; BP diastolic 57–93; PULSE 49–81; RESP 9–47; O2SAT 97–100
[2024-11-24] MEDS: SODIUM CHLORIDE 0.9% 1,000 ML 1000 ML IV (00:03)
[2024-11-24 01:31] LABS: Lactate (Lactic Acid) 2.2 mmol/L (0.7-2.1)
[2024-11-24] MEDS: PIPERACILLIN/TAZO 4.5 GM in SODIUM CHLORIDE 0.9% 100 ML IV ×3 (01:34→17:54)
[2024-11-24 02:50] LABS: Reflexed Lactate in 2 Hours Y
[2024-11-24] MEDS: ENOXAPARIN 40 MG/0.4 ML SYRINGE 60 MG SUBCUT (03:18)
--- NOTE | 2024-11-24 03:18 | PC.NURSE ---
This pt had surgery at [facility] so we consulted with the on-call gen surgery there they said they needed to come back to [facility], there are no beds so they would not allow us to consult the hospitalist for this pt. We attempted to do an ED-ED transfer but were denied by the physician's there saying this pt needed to go somewhere with IR. Prov denied bed availability and said to c/b if we wanted to w/l. [facility] waitlisted this pt but said they are on divert and hoping it will clear up in the morning. carpet yarn winder operator Kate placed this pt on the list with Alie at [facility] around [phone].
[2024-11-24 03:48] LABS: Lactate 2HR (Lactic Acid Rflx) 1.7 mmol/L (0.7-2.1)
--- NOTE | 2024-11-24 07:15 | PC.NURSE ---
Pt wearing BG monitor and insulin pump. Ok per ED Doc for pt to monitor his BG and admin his insulin from pump, as his normal routine. We will finger stick BG for comparison before every meal and before bedtime.
--- NOTE | 2024-11-24 07:48 | EKG_ITS ---
[place] [id number] [place] [id number] Test Date: 2024-11-23 Pat Name: Sunny Lock Department: [facility] Room: Gender: Male Sheet Catcher: JORGE ALBERTO JOYA : 1955 Requested By: Order Number: [id number] Reading MD: Ger Valencia Measurements Intervals [place] Rate: 55 P: 65 [place]: 112 QRS: -82 QRSD: 134 T: 21 QT: 460 QTc: 440 Interpretive Statements Sinus bradycardia with sinus arrhythmia Left axis deviation Right bundle branch block Cannot rule out Anteroseptal infarct , age undetermined Electronically Signed On 11-24-2024 9:09:59 PST by Ger Valencia
--- NOTE | 2024-11-24 08:38 | EKG_ITS ---
[address] [address] Test Date: 2024-11-24 Pat Name: Sunny Lock Department: Room: Gender: Male Physician Coding Specialist: ANDREINA : 1955 Requested By: Order Number: [id number] Reading MD: Ger Valencia Measurements Intervals [place] Rate: 55 P: 71 [place]: 160 QRS: -76 QRSD: 138 T: 37 QT: 472 QTc: 451 Interpretive Statements Sinus bradycardia with premature atrial complexes Left axis deviation Right bundle branch block Anterior infarct , age undetermined Electronically Signed On 11-25-2024 16:24:25 PST by Ger Valencia
--- NOTE | 2024-11-24 18:11 | PC.NURSE ---
Spoke with about pt's BG monitor system and insulin pump, she states pump needs to be charged 1x per week. This RN put pt's BG monitor and insulin pump on chargers, they are currently 100% charged. states pt is very good with his BG monitor and he keeps excellent track of his BG. He wears an insulin pump and he gives himself insulin as needed. ED physician states patient is allowed to monitor his BG and self-infuse his insulin from his pump. This RN has taken his BG prior to his clear liquid diet meals and his reading on his monitor and our ED glucometer are within a few points of one another. ED physician aware, studio operations engineer in charge aware.
--- NOTE | 2024-11-24 20:20 | PC.NURSE ---
Bleeding noted around RAC IV site. Dressing taken down, site cleaned and hub of IV tightened. IV continues to infuse without difficulty. New dressing placed and IV continued.
--- NOTE | 2024-11-24 20:36 | PC.NURSE ---
Pt ambulatory to restroom with walker with 1 person stand by without difficulty.
--- NOTE | 2024-11-24 21:28 | PC.NURSE ---
Spoke with per pt request to inform of pending transfer.
== END 2024-11-24 21:52 | disposition short-term general hospital (02) ==
PROVIDERS: Emergency Provider Student in an Organized Health Care Education/Training Program; Family Provider Physician Assistant Medical; PCP Family Medicine
DX: K85.90 Acute pancreatitis without necrosis or infection, unspecified (principal); K81.0 Acute cholecystitis; I48.91 Unspecified atrial fibrillation; I10 Essential (primary) hypertension; I50.9 Heart failure, unspecified; E11.9 Type 2 diabetes mellitus without complications; Z79.4 Long term (current) use of insulin; E78.5 Hyperlipidemia, unspecified; I25.2 Old myocardial infarction; Z95.5 Presence of coronary angioplasty implant and graft
CPT/HCPCS: 36415; 71045; 74177; 80053; 82550; 82962; 83605; 83690; 83735; 83880; 84484; 85025; 85610; 85730; 87040; 93005; 96361; 96365; 96366; 96372; 99284; 99285; J1650; J2543; Q9967

== ENCOUNTER 2024-11-28 17:03 | Emergency (ER) | payer MEDICARE, OTHER, SELFPAY ==
[2024-11-28] VITALS (13 sets, daily range): BP systolic 102–125; BP diastolic 55–59; PULSE 67–82; RESP 16–18; TEMP 36.2; O2SAT 88–100
--- NOTE | 2024-11-28 20:52 | ED_ITS ---
HPI - Recheck/Abnormal Lab/Rx General Chief Complaint: Recheck/Abnormal Lab/Rx Stated Complaint: Took 10x Insulin Dose Time Seen by Provider: 11/28/24 18:05 History of Present Illness HPI narrative: Patient 69-year-old male history of insulin-dependent diabetes hypertension congestive heart failure presenting to day with accidental injection of insulin. He was just released from the hospital after he was transferred for pancreatic pseudocyst. They had taken off his home insulin pump in the hospital they were at home trying to get everything back to normal. noted that his glucose was in the 400s. She called the diabetic outreach team who said to go ahead and give a manual injection of insulin. She had needles in vials but accidentally gave 50 units of regular insulin instead of 5 units. Patient remains completely asymptomatic. He has no abdominal pain nausea vomit ing chest pain. Overall feels much better than he has previously. Related Data Home Medications Medication Instructions Recorded Confirmed cyanocobalamin (vitamin B-12) 1,000 mcg PO DAILY 10/06/21 10/20/24 1,000 mcg capsule nitroglycerin 0.4 mg sublingual 0.4 mg sublingual Q5M PRN Chest 10/06/21 11/24/24 tablet (Nitrostat) Pain blood sugar diagnostic (Contour 11/05/22 10/20/24 Next Test Strips) cholecalciferol (vitamin D3) 25 50 mcg PO DAILY 11/05/22 10/20/24 mcg (1,000 unit) capsule (Vitamin D3) clopidogrel 75 mg tablet 75 mg PO DAILY 11/05/22 11/24/24 empagliflozin 10 mg tablet 10 mg PO QAM 11/05/22 11/24/24 (Jardiance) glucagon 3 mg/actuation nasal 3 mg intranasal ONCE 11/05/22 11/24/24 spray (Baqsimi) insulin aspart U-100 100 unit/mL 1 sliding scale dose SUBCUT 11/05/22 11/24/24 subcutaneous solution (Novolog USEASDIRECTD U-100 Insulin aspart) magnesium chloride 64 mg 64 mg PO DAILY 11/05/22 11/24/24 tablet,extended release rosuvastatin 5 mg tablet 5 mg PO DAILY 11/05/22 11/24/24 metformin 1,000 mg tablet 1,000 mg PO BID 08/05/23 11/24/24 lisinopril 5 mg tablet 5 mg PO DAILY 02/01/24 11/24/24 multivitamin with iron 1 tab PO DAILY Low iron level 05/19/24 10/20/24 L.acidophilus-B.animalis-B.longum 1 cap PO DAILY 09/02/24 10/20/24 15 billion cell capsule (Florajen Digestion) ascorbic acid (vitamin C) 500 mg 500 mg PO 09/02/24 10/20/24 tablet (Vitamin C) omega 2-rgf-hdu-fish oil 1,000 mg 1 cap PO DAILY 09/02/24 10/20/24 (120 mg-180 mg) capsule (Fish Oil) Previous Rx's Medication Instructions Recorded donepezil 10 mg tablet 10 mg PO BEDTIME #90 tabs 01/01/24 memantine 5 mg tablet (Namenda) 5 mg PO BID #180 tabs 02/01/24 tamsulosin 0.4 mg capsule 0.4 mg PO BEDTIME #90 caps 06/13/24 insulin aspart U-100 100 unit/mL 1 sliding scale dose SUBCUT 06/20/24 subcutaneous solution (Novolog USEASDIRECTD #10 mL U-100 Insulin aspart) Allergies Allergy/AdvReac Type Severity Reaction Status Date / Time levothyroxine Allergy Verified 11/24/24 14:27 Quinolones Allergy Verified 11/24/24 14:27 levofloxacin AdvReac Severe Hallucinati Verified 11/24/24 14:27 ng clindamycin AdvReac Intermediate Rash Verified 11/24/24 14:27 spironolactone AdvReac Intermediate rash Verified 11/24/24 14:27 Patient History Medical History (Updated 11/28/24 @ 21:06 by Chula Ortega DO) Arm contusion Abrasions of multiple sites Inguinal hernia of right side without obstruction or gangrene Hypertension Type 1 diabetes mellitus GERD (gastroesophageal reflux disease) Elevated LFTs Iron deficiency anemia History of UTI BPH w urinary obs/LUTS Urinary incontinence without sensory awareness Urinary incontinence due to severe physical disability Sleep apnea Ankle fracture, right Mumps Measles Chicken pox History of urinary incontinence Fecal incontinence Hemorrhoid Colitis Diastolic heart failure Hyperlipidemia Benign essential HTN Type 2 diabetes mellitus without complication, with long-term current use of insulin (~2005) Dementia Recurrent UTI Diabetes mellitus, insulin dependent (IDDM), controlled CAD (coronary artery disease) Surgical History (Updated 10/23/24 @ 12:02 by Teresa Ramos DO) Anesthesia History of cataract removal with insertion of prosthetic lens (~2021) H/O heart artery stent History of heart artery stent Urethral diverticulum Family History Mother Polycystic kidney History of heart disease Hypertension Father Coronary artery disease Brother Diabetes mellitus History of heart disease Polycystic kidney Social History marital status: household members: spouse lives independently: Yes occupational status: previously employed Smoking Status: Never smoker alcohol intake: current Smoking Status: Never smoker alcohol intake frequency: a few times a week Alcohol type: beer and wine Exam Initial Vital Signs Initial Vital Signs: Vital Signs Temperature 97.2 F L 11/28/24 17:08 Pulse Rate 82 11/28/24 17:08 Respiratory Rate 18 11/28/24 17:08 Blood Pressure 125/58 L 11/28/24 17:08 Pulse Oximetry 100 11/28/24 17:08 Oxygen Delivery Method Room Air 11/28/24 17:08 GENERAL: Awake alert 69-year-old male HEENT: Head atraumatic,EOMI, pupils reactive, face symmetric, moist mucous membranes CARDIOVASCULAR: Regular rate and rhythm without murmurs, rubs or gallops. RESPIRATORY: Breath sounds equal bilaterally, no wheezes rales or rhonchi. ABDOMEN: Soft, nontender. Normoactive bowel sounds all 4 quadrants. No g uarding or rebound. EXTREMITIES: Normal range of motion, no clubbing or edema. Neurovascularly intact NEUROLOGICAL: Alert and oriented x4.Normal gait and speech. Cranial nerves II through XII grossly intact. SKIN: Warm, dry, no laceration, no petechiae, no rashes or lesions. Course Vital Signs Vital signs: Vital Signs - 8 hr 11/28/24 17:08 11/28/24 17:49 11/28/24 17:50 Temperature 97.2 F L Pulse Rate 82 72 Respiratory Rate 18 Blood Pressure 125/58 L 104/58 L Pulse Oximetry 100 99 Oxygen Delivery Method Room Air 11/28/24 17:50 11/28/24 17:59 11/28/24 18:00 Temperature Pulse Rate 78 72 Respiratory Rate Blood Pressure 102/57 L Pulse Oximetry 99 100 Oxygen Delivery Method 11/28/24 18:04 11/28/24 18:31 11/28/24 18:31 Temperature Pulse Rate 79 71 Respiratory Rate Blood Pressure 112/58 L Pulse Oximetry 88 L 99 Oxygen Delivery Method 11/28/24 19:00 11/28/24 19:00 11/28/24 19:30 Temperature Pulse Rate 70 71 Respiratory Rate 17 Blood Pressure 103/55 L Pulse Oximetry 100 100 Oxygen Delivery Method Room Air 11/28/24 19:31 11/28/24 19:31 11/28/24 19:46 Temperature Pulse Rate 71 Respiratory Rate Blood Pressure 107/58 L 116/59 L Pulse Oximetry 100 Oxygen Delivery Method 11/28/24 20:00 11/28/24 20:00 Temperature Pulse Rate 70 Respiratory Rate 16 Blood Pressure 108/58 L Pulse Oximetry 100 Oxygen Delivery Method MDM - Recheck/Abnormal Lab/Rx Lab Data Labs: Point of Care Testing Glucose POC 123 MDM Narrative Medical decision making narrative: 69-year-old male insulin-dependent diabetic presents today with accidental injec tion of 50 units of NovoLog. He has had a full meal remains awake alert oriented. POC glucose remains stable. At this time he has no abdominal pain I see no need for any blood work or imaging. He was eating without any kind of complaints. This was not intentional overdose. Instructions given to and patient they feel comfortable going home Discharge Plan Departure Patient Disposition: Home Clinical Impression: Accidental overdose, Diabetes Activity Restrictions/Additional Instructions: *You have been diagnosed with accidental overdose *What to do: At this time okay to start insulin pump again. I would eat again before bed. I would also check glucose 1 or 2 times tonight *Continue to take medications as directed *Follow up with your primary care provider in 2-3 days or call [phone] *Return to ER if you should have high sugars greater than 500, nausea vomiting abdominal pain or any new, worsening or concerning symptoms Prescriptions: No Action nitroglycerin [Nitrostat] 0.4 mg tablet, sublingual 0.4 mg sublingual Q5M PRN (Reason: Chest Pain) Rx Instructions: do not exceed 3 doses per episode cyanocobalamin (vitamin B-12) 1,000 mcg capsule 1,000 mcg PO DAILY donepezil 10 mg tablet 10 mg PO BEDTIME Qty: 90 3RF tamsulosin 0.4 mg capsule 0.4 mg PO BEDTIME Qty: 90 3RF Baqsimi 3 mg/actuation spray,non-aerosol 3 mg intranasal ONCE Rx Instructions: as a single dose insulin aspart U-100 [Novolog U-100 Insulin aspart] 100 unit/mL solution 1 sliding scale dose SUBCUT USEASDIRECTD Rx Instructions: use 160 units every 3 days via insulin pump (DME) Contour Next Test Strips Strip See Rx Instructions .Route Rx Instructions: As directed Jardiance 10 mg tablet 10 mg PO QAM magnesium chloride 64 mg tablet extended release 64 mg PO DAILY clopidogrel 75 mg tablet 75 mg PO DAILY rosuvastatin 5 mg tablet 5 mg PO DAILY cholecalciferol (vitamin D3) [Vitamin D3] 25 mcg (1,000 unit) capsule 50 mcg PO DAILY metformin 1,000 mg tablet 1,000 mg PO BID multivitamin with iron Tablet 1 tab PO DAILY lisinopril 5 mg tablet 5 mg PO DAILY memantine [Namenda] 5 mg tablet 5 mg PO BID Qty: 180 3RF ascorbic acid (vitamin C) [Vitamin C] 500 mg tablet 500 mg PO Florajen Digestion 15 billion cell capsule 1 cap PO DAILY omega 0-dyr-epq-fish oil [Fish Oil] 1,000 mg (120 mg-180 mg) capsule 1 cap PO DAILY insulin aspart U-100 [Novolog U-100 Insulin aspart] 100 unit/mL solution 1 sliding scale dose SUBCUT USEASDIRECTD Qty: 10 0RF Referrals: Teresa Ramos DO [Primary Care Provider] - Stand Alone Forms: Patient Portal/API/Survey
== END 2024-11-28 21:16 | disposition home or self-care (01) ==
PROVIDERS: Emergency Provider Emergency Medicine; Family Provider Physician Assistant Medical; PCP Family Medicine
DX: T38.3X1A Poisoning by insulin and oral hypoglycemic [antidiabetic] drugs, accidental (unintentional), initial encounter (principal); E11.9 Type 2 diabetes mellitus without complications; I11.0 Hypertensive heart disease with heart failure; I50.9 Heart failure, unspecified; Z79.4 Long term (current) use of insulin; Z79.85 Long-term (current) use of injectable non-insulin antidiabetic drugs
CPT/HCPCS: 82962; 99282

== ENCOUNTER → 2024-12-08 09:25 | Outpatient (CLI) | payer MEDICARE, OTHER, SELFPAY ==
--- NOTE | 2024-12-08 12:17 | DI.RAD.S_ITS ---
PROCEDURE: XR ACUTE ABDOMEN SERIES INDICATIONS: Follow-up hosp discharge; pancreatic duct passage TECHNIQUE: One view chest and two views of the abdomen were acquired. COMPARISON: [facility], CT, CT ABDOMEN PELVIS W CON, 11/23/2024, 23:40. FINDINGS: Surgical changes and devices: Surgical clips project over the left inguinal region. Right upper quadrant surgical clips. Vascular stent graft is seen at the central abdomen. Electronic device projects over left upper chest. Chest: Lungs are clear. Heart size is normal. No pleural effusions. No pneumoperitoneum. Abdomen: Bowel gas pattern is normal. No suspicious calcifications. Visualized solid organ contours appear normal. Bones: No suspicious bony lesions. IMPRESSION: Nonspecific nonobstructive bowel gas pattern. No pneumoperitoneum. No acute cardiopulmonary abnormality. Approved by: Jasbir Drake M.D. on 12/09/2024 at 15:56
[2024-12-08 12:35] LABS: Alanine Aminotransferase 41 IU/L (<50); Albumin 3.8 g/dL (3.5-5.0); Albumin Globulin Ratio 1.9 (1.0-2.8); Alkaline Phosphatase 55 U/L (38-126); Aspartate Aminotransferase 39 IU/L (17-59); BUN Creatinine Ratio 26.4 (6-22); Bilirubin Total 0.9 mg/dL (0.2-1.3); Blood Urea Nitrogen 23 mg/dL (9-20); Calcium 9.1 mg/dL (8.4-10.2); Carbon Dioxide 27 mmol/L (22-32); Chloride 99 mmol/L (98-107); Estimated Glomerular Filt Rate > 60 mL/min (>60); Glucose 166 mg/dL (80-110); Magnesium 1.9 mg/dL (1.6-2.3); Sodium 133 mmol/L (137-145); Total Protein 5.8 g/dL (6.3-8.2)
[2024-12-08 12:36] LABS: HEMOLYSIS 109 (0-50); Potassium 5.5 mmol/L (3.4-5.1)
[2024-12-08 12:54] LABS: Lipase 424 U/L (23-300)
== END ==
PROVIDERS: Family Provider Physician Assistant Medical; PCP Family Medicine; Referring Provider Specialist; Visit Provider Specialist
DX: R79.89 Other specified abnormal findings of blood chemistry (principal); I10 Essential (primary) hypertension; E78.2 Mixed hyperlipidemia; K81.0 Acute cholecystitis; R74.8 Abnormal levels of other serum enzymes; Z96.89 Presence of other specified functional implants
CPT/HCPCS: 36415; 74022; 80053; 83690; 83735

== ENCOUNTER 2025-03-12 02:20 | Inpatient (IN) | payer MEDICARE, OTHER, SELFPAY ==
[2025-03-12] VITALS (28 sets, daily range): BP systolic 114–194; BP diastolic 57–92; PULSE 40–66; RESP 14–43; TEMP 36.3–37; O2SAT 94–99; BMI 22.9
--- NOTE | 2025-03-12 02:28 | EKG_ITS ---
[address] [address] Test Date: 2025-03-12 Pat Name: Sunny Lock Department: Room: Gender: Male Forming Machine Adjuster: PREET : 1955 Requested By: Order Number: [id number] Reading MD: Ger Valencia Measurements Intervals [place] Rate: 48 P: 57 [place]: 146 QRS: -82 QRSD: 144 T: 7 QT: 484 QTc: 432 Interpretive Statements Sinus bradycardia Left axis deviation Right bundle branch block Possible Anteroseptal infarct , age undetermined Electronically Signed On 03-13-2025 7:53:12 PDT by Ger Valencia
--- NOTE | 2025-03-12 02:34 | DI.RAD.S_ITS ---
PROCEDURE: XR CHEST 1V INDICATIONS: Chest Pain TECHNIQUE: One view of the chest was acquired. COMPARISON: [facility], CR, XR CHEST 1V, 11/23/2024, 22:25. [facility], CR, XR CHEST 1V, 09/08/2022, 13:36. FINDINGS: Surgical changes and devices: None. Lungs and pleura: Lungs are clear. No pleural effusions or pneumothorax. Mediastinum: Mediastinal contours appear normal. Heart size is normal. Bones and chest wall: No suspicious bony lesions. Overlying soft tissues appear unremarkable. IMPRESSION: No acute cardiopulmonary abnormality is seen. There is no significant discrepancy when compared to the overnight preliminary report. Approved by: Jasbir Drake M.D. on 03/12/2025 at 8:39
--- NOTE | 2025-03-12 02:39 | ED_ITS ---
HPI - Chest Pain General Chief Complaint: Chest Pain Stated Complaint: Angina Time Seen by Provider: 03/12/25 02:35 Source: patient and EMS Mode of arrival: EMS Limitations: no limitations History of Present Illness HPI narrative: 70-year-old gentleman history of CAD with 7 stents, paroxysmal atrial fibrillation, type 1 diabetic, hypertension, dyslipidemia, cholecystectomy Sep 2024 at [facility], woke up earlier this morning at 7:00 a.m. with chest pain described as burning sensation for which he took 2 nitros that completely resolved his symptoms. And this evening as he was going to bed he woke up at 1:00 a.m. with chest burning again and given his cardiac history advised by 911 to take 4 baby aspirin and 1 nitroglycerin for which he was brought in via EMS is now chest pain-free. He denies nausea, diaphoresis, radiating symptoms to the back, arm, jaw, neck, shortness of breath, dyspnea on exertion, or worsening leg pain or leg swelling. Other than what is stated 14 point review of system is negative. Related Data Home Medications Medication Instructions Recorded Confirmed cyanocobalamin (vitamin B-12) 1,000 mcg PO DAILY 10/06/21 12/28/24 1,000 mcg capsule nitroglycerin 0.4 mg sublingual 0.4 mg sublingual Q5M PRN Chest 10/06/21 12/28/24 tablet (Nitrostat) Pain blood sugar diagnostic (Contour 11/05/22 12/28/24 Next Test Strips) cholecalciferol (vitamin D3) 25 50 mcg PO DAILY 11/05/22 12/28/24 mcg (1,000 unit) capsule (Vitamin D3) clopidogrel 75 mg tablet 75 mg PO DAILY 11/05/22 12/28/24 empagliflozin 10 mg tablet 10 mg PO QAM 11/05/22 12/28/24 (Jardiance) insulin aspart U-100 100 unit/mL 1 sliding scale dose SUBCUT 11/05/22 12/28/24 subcutaneous solution (Novolog USEASDIRECTD U-100 Insulin aspart) metformin 1,000 mg tablet 1,000 mg PO BID 08/05/23 12/28/24 lisinopril 5 mg tablet 5 mg PO DAILY 02/01/24 12/28/24 multivitamin with iron 1 tab PO DAILY Low iron level 05/19/24 12/28/24 L.acidophilus-B.animalis-B.longum 1 cap PO DAILY 09/02/24 12/28/24 15 billion cell capsule (Florajen Digestion) omega 6-kqx-imk-fish oil 1,000 mg 1 cap PO DAILY 09/02/24 12/28/24 (120 mg-180 mg) capsule (Fish Oil) mirabegron 50 mg tablet,extended 50 mg PO DAILY Bladder 12/08/24 12/28/24 release 24 hr (Myrbetriq) ascorbic acid (vitamin C) 500 mg 500 mg PO DAILY 12/28/24 12/28/24 tablet (Vitamin C) glucagon 3 mg/actuation nasal 3 mg intranasal ONCE PRN 12/28/24 12/28/24 spray (Baqsimi) magnesium chloride 64 mg 64 mg PO BID 12/28/24 12/28/24 tablet,extended release rosuvastatin 5 mg tablet 5 mg PO Q OTHER DAY 12/28/24 12/28/24 Previous Rx's Medication Instructions Recorded tamsulosin 0.4 mg capsule 0.4 mg PO BEDTIME #90 caps 06/13/24 memantine 5 mg tablet 5 mg PO QPM #90 tabs 12/16/24 donepezil 10 mg tablet 10 mg PO BEDTIME #90 tabs 12/27/24 Allergies Allergy/AdvReac Type Severity Reaction Status Date / Time levothyroxine Allergy Verified 12/28/24 07:40 Quinolones Allergy Verified 12/28/24 07:40 levofloxacin AdvReac Severe Hallucinati Verified 12/28/24 07:40 ng clindamycin AdvReac Intermediate Rash Verified 12/28/24 07:40 spironolactone AdvReac Intermediate rash Verified 12/28/24 07:40 Review of Systems Review of Systems ROS Unobtainable: All systems reviewed & are unremarkable except as noted in HPI and below Patient History Medical History (Updated 03/12/25 @ 06:51 by Matty Ventura DO) Accidental overdose Arm contusion Abrasions of multiple sites Inguinal hernia of right side without obstruction or gangrene Hypertension Type 1 diabetes mellitus GERD (gastroesophageal reflux disease) Elevated LFTs Iron deficiency anemia History of UTI BPH w urinary obs/LUTS Urinary incontinence without sensory awareness Urinary incontinence due to severe physical disability Sleep apnea Ankle fracture, right Mumps Measles Chicken pox History of urinary incontinence Fecal incontinence Hemorrhoid Colitis Diastolic heart failure Hyperlipidemia Benign essential HTN Type 2 diabetes mellitus without complication, with long-term current use of insulin (~2005) Dementia Recurrent UTI Diabetes mellitus, insulin dependent (IDDM), controlled CAD (coronary artery disease) Surgical History (Updated 10/23/24 @ 12:02 by Teresa Ramos DO) Anesthesia History of cataract removal with insertion of prosthetic lens (~2021) H/O heart artery stent History of heart artery stent Urethral diverticulum Family History Mother Polycystic kidney History of heart disease Hypertension Father Coronary artery disease Brother Diabetes mellitus History of heart disease Polycystic kidney Social History marital status: household members: spouse lives independently: Yes occupational status: previously employed Smoking Status: Never smoker alcohol intake: current Smoking Status: Never smoker alcohol intake frequency: a few times a week Alcohol type: beer and wine Exam Narrative Exam Narrative: GENERAL: [70] year old patient appears stated age. Well-developed patient, in mild distress. HEAD: Atraumatic. Normocephalic. EYES: Pupils equal round and reactive. Extraocular motions intact. No scleral icterus. No injection or drainage. NECK: Trachea midline. Non tender CARDIOVASCULAR: Regular rate and rhythm without murmurs, gallops, or rubs. RESPIRATORY: Clear to auscultation. Breath sounds equal bilaterally. No wheezes, rales, or rhonchi. GASTROINTESTINAL: Abdomen soft, epigastric TTP, nondistended. EXTREMITIES: No edema or joint tenderness. BACK: Nontender without deformity or crepitance. No flank tenderness. NEURO: AOx3. SKIN: No rash or erythema of visible areas Initial Vital Signs Initial Vital Signs: Vital Signs Pulse Rate 52 L 03/12/25 02:24 Pulse Oximetry 98 03/12/25 02:24 Scores HEART Score Heart Score history: Moderately Suspicious Heart Score EKG: Normal Heart Score Age: > or = 65 years old Heart Score risk factors: > 3 risk factors or hx of atherosclerotic disease Heart Score troponin: < or = to normal limit Heart Score Total: 5 Course Orders Ordered: ED Orders 03/12/25 02:25 Complete Blood Count AUTO DIFF Stat Comprehensive Metabolic Panel Stat Lipase Stat Magnesium Stat NT-proBNP (BNP-Adult 18+) Stat PTT Partial Thromboplastin Domenic Stat Prothrombin Time INR Stat Troponin & CK Cardiac Panel Stat 03/12/25 02:34 XR chest 1V Stat EKG-12 Lead Stat 03/12/25 02:56 CT abdomen pelvis w con Stat 03/12/25 04:41 US abdomen limited Stat 03/12/25 05:10 Troponin I Stat 03/12/25 06:01 MRCP [MR abdomen wo/w con] Stat Sodium Chloride (Normal Saline 0.9%) 1,000 mls @ 150 mls/hr IV CONT PATRICIA Discontinued Medications Hydromorphone HCl (Hydromorphone 1 Mg Inj) 1 mg IV NOW ONE Stop: 03/12/25 06:12 Last Admin: 03/12/25 06:21 Dose: 1 mg Morphine Sulfate (Morphine 4 Mg/Ml Inj) 4 mg IV NOW ONE Stop: 03/12/25 04:42 Last Admin: 03/12/25 04:45 Dose: 4 mg Ondansetron HCl (Ondansetron 4 Mg/2 Ml Inj) 4 mg IV NOW ONE Stop: 03/12/25 06:22 Last Admin: 03/12/25 06:25 Dose: 4 mg Vital Signs Vital signs: Vital Signs - 8 hr 03/12/25 02:24 03/12/25 02:28 03/12/25 02:30 Temperature 97.4 F L Pulse Rate 52 L 47 L 49 L Respiratory Rate 14 Blood Pressure 129/63 Pulse Oximetry 98 98 98 Oxygen Delivery Method Room Air 03/12/25 02:30 03/12/25 03:00 03/12/25 03:01 Temperature Pulse Rate 40 L Respiratory Rate 18 Blood Pressure 129/63 114/57 L Pulse Oximetry 98 Oxygen Delivery Method 03/12/25 03:30 03/12/25 03:30 03/12/25 04:00 Temperature Pulse Rate 42 L 42 L Respiratory Rate 32 H 34 H Blood Pressure 165/79 H Pulse Oximetry 98 98 Oxygen Delivery Method 03/12/25 04:01 03/12/25 04:01 03/12/25 04:30 Temperature Pulse Rate 43 L 44 L Respiratory Rate 35 H 20 Blood Pressure 148/70 H Pulse Oximetry 97 Oxygen Delivery Method 03/12/25 04:31 03/12/25 05:00 03/12/25 05:01 Temperature Pulse Rate 50 L Respiratory Rate 18 Blood Pressure 183/82 H 189/92 H Pulse Oximetry 97 Oxygen Delivery Method 03/12/25 05:30 03/12/25 05:31 03/12/25 05:31 Temperature Pulse Rate 46 L 47 L Respiratory Rate 20 18 Blood Pressure 152/68 H Pulse Oximetry 96 96 Oxygen Delivery Method 03/12/25 06:00 03/12/25 06:01 03/12/25 06:31 Temperature Pulse Rate 46 L 48 L Respiratory Rate 18 18 Blood Pressure 194/78 H Pulse Oximetry 97 96 Oxygen Delivery Method 03/12/25 06:31 Temperature Pulse Rate Respiratory Rate Blood Pressure 125/65 Pulse Oximetry Oxygen Delivery Method MDM - Chest Pain Lab Data 03/12/25 02:25 03/12/25 02:25 Labs: Lab Results 03/12/25 03/12/25 Range/Units 02:25 05:10 WBC 7.2 (4.5-11.0) X10^3/uL RBC 4.58 (4.5-5.9) X10^6/uL Hgb 14.3 (13.5-17.5) g/dL Hct 41.1 (41-53) % MCV 89.6 (80-100) fL MCH 31.2 (26-34) PG MCHC 34.8 (30-36) % RDW 13.5 (11.6-14.8) % Plt Count 174 (150-400) X10^3/uL Neut % (Auto) 69.1 (50-75) % Lymph % (Auto) 19.9 L (25-40) % Assumption % (Auto) 6.2 (3-14) % Eos % (Auto) 4.4 H (2-4) % Baso % (Auto) 0.4 (0-2) % Neut # (Auto) 5000 (2061-5994) /uL Lymph # (Auto) 1400 (0670-6960) /uL Assumption # (Auto) 500 (0-900) /uL Eos # (Auto) 300 (0-450) /uL Baso # (Auto) 0 (0-100) /uL PT 11.0 (9.4-12.5) SECONDS INR 1.0 (0.9-1.3) APTT 34 (25.1-36.5) SECONDS Sodium 135 L (137-145) mmol/L Potassium 3.9 (3.4-5.1) mmol/L Chloride 104 (98-107) mmol/L Carbon Dioxide 25 (22-32) mmol/L BUN 25 H (9-20) mg/dL Creatinine 0.82 (0.66-1.25) mg/dL Estimated GFR > 60 (>60) mL/min BUN/Creatinine Ratio 30.5 H (6-22) Glucose 134 H (70-99) mg/dL Calcium 8.9 (8.4-10.2) mg/dL Magnesium 1.8 (1.6-2.3) mg/dL Total Bilirubin 0.6 (0.2-1.3) mg/dL AST 286 H (17-59) IU/L ALT 172 H (<50) IU/L Alkaline Phosphatase 69 (38-126) U/L Total Creatine Kinase 53 L (55-170) U/L Troponin I < 0.012 < 0.012 (0.01-0.034) ng/mL NT-Pro-B Natriuret Pep 254 H (<125) pg/mL Total Protein 5.4 L (6.3-8.2) g/dL Albumin 3.4 L (3.5-5.0) g/dL Globulin 2.0 (1.7-4.1) g/dL Albumin/Globulin Ratio 1.7 (1.0-2.8) Lipase 2587 H (23-300) U/L ECG Data Interpretation: Sinus Etienne HR 48 LAD RBBB MN 146 QRS [address]-t wave change Unchanged from 11/27/[address] [facility] Narrative Medical decision making narrative: All lab work vital signs nurse triage note medication list previous ER visits and x-ray and CT scan have all been reviewed. CT abdomen pelvis showed right inguinal hernia containing the appendix no CT findings of acute appendicitis no evidence of colitis diverticulitis bowel obstruction or obstructive uropathy. Large volume of stool within the colon compatible with constipation and that there is also intrahepatic biliary ductal dilatation and cholelithiasis. Pancreas spleen and adrenal glands are normal and kidneys are unremarkable. Ultrasound showed status post cholecystectomy hepatomegaly and hepatic steatosis. The common bile duct is normal in diameter. White count is normal, AST 286 ALT 172 alk-phos normal at 69 T bili at 0.6 BNP 254 lipase 2587, 2 sets of troponin less than 0.012, heart score of 5. Patient given Zofran, Dilaudid and morphine and normal saline at 150/hr. Differential diagnosis includes STEMI, NSTEMI, pancreatitis, GERD, unstable angina. Case discussed with who has graciously accepted the patient for inpatient admission.. Discharge Plan Departure Patient Disposition: Admitted As Inpatient Clinical Impression: Acute pancreatitis Qualifiers: Pancreatitis type: idiopathic Acute pancreatitis complication: uninfected necrosis Qualified Code(s): K85.01 - Idiopathic acute pancreatitis with uninfected necrosis Prescriptions: No Action nitroglycerin [Nitrostat] 0.4 mg tablet, sublingual 0.4 mg sublingual Q5M PRN (Reason: Chest Pain) Rx Instructions: do not exceed 3 doses per episode cyanocobalamin (vitamin B-12) 1,000 mcg capsule 1,000 mcg PO DAILY tamsulosin 0.4 mg capsule 0.4 mg PO BEDTIME Qty: 90 3RF memantine 5 mg tablet 5 mg PO QPM Qty: 90 3RF donepezil 10 mg tablet 10 mg PO BEDTIME Qty: 90 3RF insulin aspart U-100 [Novolog U-100 Insulin aspart] 100 unit/mL solution 1 sliding scale dose SUBCUT USEASDIRECTD Rx Instructions: use 160 units every 3 days via insulin pump (DME) Contour Next Test Strips Strip See Rx Instructions .Route Rx Instructions: As directed Jardiance 10 mg tablet 10 mg PO QAM clopidogrel 75 mg tablet 75 mg PO DAILY cholecalciferol (vitamin D3) [Vitamin D3] 25 mcg (1,000 unit) capsule 50 mcg PO DAILY Baqsimi 3 mg/actuation spray,non-aerosol 3 mg intranasal ONCE PRN Rx Instructions: as a single dose magnesium chloride 64 mg tablet extended release 64 mg PO BID rosuvastatin 5 mg tablet 5 mg PO Q OTHER DAY metformin 1,000 mg tablet 1,000 mg PO BID multivitamin with iron Tablet 1 tab PO DAILY lisinopril 5 mg tablet 5 mg PO DAILY Florajen Digestion 15 billion cell capsule 1 cap PO DAILY omega 2-edf-obj-fish oil [Fish Oil] 1,000 mg (120 mg-180 mg) capsule 1 cap PO DAILY ascorbic acid (vitamin C) [Vitamin C] 500 mg tablet 500 mg PO DAILY mirabegron [Myrbetriq] 50 mg tablet extended release 24 hr 50 mg PO DAILY Referrals: Teresa Ramos DO [Primary Care Provider] - Admit Date/Time: 03/12/25 06:53 Admit Provider: Jovany Frost
[2025-03-12 02:44] LABS: Add Manual Diff / Slide Review NO; Basophils Absolute Auto 0 /uL (0-100); Basophils Percent Auto 0.4 % (0-2); Eosinophils Absolute Auto 300 /uL (0-450); Eosinophils Percent Auto 4.4 % (2-4); Hematocrit 41.1 % (41-53); Hemoglobin 14.3 g/dL (13.5-17.5); Lymphocytes Absolute Auto 1400 /uL (1100-4500); Lymphocytes Percent Auto 19.9 % (25-40); Mean Corpuscular HGB Conc 34.8 % (30-36); Mean Corpuscular Hemoglobin 31.2 PG (26-34); Mean Corpuscular Volume 89.6 fL (80-100); Monocytes Absolute Auto 500 /uL (0-900); Monocytes Percent Auto 6.2 % (3-14); Neutrophils Absolute Auto 5000 /uL (1500-7000); Neutrophils Percent Auto 69.1 % (50-75); Platelet Count 174 X10^3/uL (150-400); Red Blood Cell Count 4.58 X10^6/uL (4.5-5.9); Red Cell Distribution Width 13.5 % (11.6-14.8); White Blood Cell Count 7.2 X10^3/uL (4.5-11.0)
[2025-03-12 02:46] LABS: Alanine Aminotransferase 172 IU/L (<50); Albumin 3.4 g/dL (3.5-5.0); Albumin Globulin Ratio 1.7 (1.0-2.8); Alkaline Phosphatase 69 U/L (38-126); Aspartate Aminotransferase 286 IU/L (17-59); BUN Creatinine Ratio 30.5 (6-22); Bilirubin Total 0.6 mg/dL (0.2-1.3); Blood Urea Nitrogen 25 mg/dL (9-20); Calcium 8.9 mg/dL (8.4-10.2); Carbon Dioxide 25 mmol/L (22-32); Chloride 104 mmol/L (98-107); Creatine Kinase 53 U/L (55-170); Estimated Glomerular Filt Rate > 60 mL/min (>60); Glucose 134 mg/dL (70-99); HEMOLYSIS < 15 (0-50); Magnesium 1.8 mg/dL (1.6-2.3); Potassium 3.9 mmol/L (3.4-5.1); Sodium 135 mmol/L (137-145); Total Protein 5.4 g/dL (6.3-8.2)
[2025-03-12 02:50] LABS: PTT Partial Thromboplastin Tim 34 SECONDS (25.1-36.5)
[2025-03-12 02:54] LABS: Lipase 2587 U/L (23-300)
--- NOTE | 2025-03-12 02:56 | DI.CT.S_ITS ---
PROCEDURE: CT ABDOMEN PELVIS W CON INDICATIONS: pancreatitis TECHNIQUE: After the administration of intravenous contrast, axial sections acquired from the lung bases to the pubic symphysis. Coronal and sagittal reformats were performed. For radiation dose reduction, the following was used: automated exposure control, adjustment of mA and/or kV according to patient size. COMPARISON: [facility], CT, CT ABDOMEN PELVIS W CON, 11/23/2024, 23:40. FINDINGS: Image quality: Diagnostic. Lower Chest: No significant findings. ABDOMEN: Liver: No solid mass. Gallbladder: Status post cholecystectomy. Small irregular fluid collection again seen in the gallbladder fossa with hyperdense material along the posterior medial margin similar to the CT from 11/23/2024. Biliary ducts: No biliary dilation. Pancreas: No ductal dilation. Pancreas enhances normally. No significant peripancreatic edema. Spleen: Size is within normal limits. Adrenal Glands: No adrenal nodules. Kidneys and Ureters: No hydronephrosis. No solid mass. No complex renal cystic lesion which requires follow up. Stomach and Bowel: Normal colonic caliber, without significant wall thickening. Peritoneum: No abnormal intraperitoneal fluid. No free air. Ventral Wall: No significant ventral hernia. Abdominal Nodes: No retroperitoneal or mesenteric adenopathy by size criteria. Vessels: Aorta and inferior vena cava are normal in size. PELVIS: Pelvic Organs: Unremarkable. Bladder: No bladder wall thickening, accounting for underdistention. Pelvic Nodes: No enlarged lymph nodes. Miscellaneous: Small fat containing left inguinal hernia. Small right inguinal hernia contains fat as well as trace fluid and a short segment of the appendix. Bones: No aggressive osseous abnormality. IMPRESSION: 1. Fluid collection again seen in the gallbladder fossa, which has mildly decreased in size when compared to the CT from 11/23/2024 is likely a small chronic biloma or seroma. Abscess is considered less likely. 2. Pancreas enhances normally without significant peripancreatic edema. 3. Right inguinal hernia contains a short segment of the appendix without signs acute appendicitis or bowel obstruction. Approved by: Jasbir Drake M.D. on 03/12/2025 at 8:47
[2025-03-12 02:58] LABS: NT-proBNP (BNP-Adult 18+) 254 pg/mL (<125); Troponin I < 0.012 ng/mL (0.01-0.034)
--- NOTE | 2025-03-12 04:41 | DI.US.S_ITS ---
PROCEDURE: US ABDOMEN LIMITED INDICATIONS: stretcher; elevated LFTs, history of cholecystectomy, right upper quadrant pain TECHNIQUE: Real-time scanning was performed of the abdominal and retroperitoneal organs, with image documentation. COMPARISON: [facility], CT, CT ABDOMEN PELVIS W CON, 03/12/2025, 3:05. FINDINGS: Liver: Liver is borderline enlarged at 17.5 cm with increased echogenicity. Hepatopetal flow seen in the main portal vein. Gallbladder: Status post cholecystectomy. Small amount of ill-defined fluid is seen in the gallbladder fossa Biliary ducts: Intrahepatic bile ducts are non-dilated. Extrahepatic bile duct caliber measures 7.5 mm. Normal is 6-7 mm or less in diameter, or 10 mm or less post-cholecystectomy. Pancreas: Visualized portions of the pancreas are sonographically normal. Miscellaneous: Trace perinephric fluid. IMPRESSION: 1. Mild hepatomegaly and diffusely increased hepatic echogenicity are nonspecific, but most commonly encountered in the setting of hepatic steatosis. However, other causes of hepatocellular disease are not excluded. Recommend clinical correlation. 2. Status post cholecystectomy. Small amount of fluid in the gallbladder fossa is better seen on CT. There is no significant discrepancy when compared to the overnight preliminary report. Approved by: Jasbir Drake M.D. on 03/12/2025 at 8:57
[2025-03-12] MEDS: MORPHINE 4 MG/ML INJ IV (04:45)
[2025-03-12 05:44] LABS: Troponin I < 0.012 ng/mL (0.01-0.034)
--- NOTE | 2025-03-12 06:01 | DI.MRI.S_ITS ---
PROCEDURE: MR ABDOMEN WO/W CON INDICATIONS: cholecystectomy, inconclusive US, pancreatitis TECHNIQUE: Coronal HASTE, axial 2D FLASH in- and [id number]; axial breath-hold T2 FSE with fat saturation from the hepatic dome to the iliac crests. Oblique coronal thin-slice and radial thick slab HASTE through the biliary system. Dynamic axial VIBE during administration of contrast. Post-contrast coronal VIBE or 2D FLASH with fat saturation from the hepatic dome to the iliac crests. Optional diffusion weighted imaging may be performed. COMPARISON: [facility], CT, CT ABDOMEN PELVIS W CON, 11/23/2024, 23:40. [facility], CT, CT ABDOMEN PELVIS W CON, 03/12/2025, 3:05. [facility], US, US ABDOMEN LIMITED, 03/12/2025, 5:28. FINDINGS: Image quality: Diagnostic. Gallbladder: Status post cholecystectomy. A fluid collection is again seen in the gallbladder fossa measuring up to 3.5 x 1.7 by 1.9 cm (07/09 and 04/27). Biliary ducts: Mild prominence of the biliary ducts is within normal limits for the post cholecystectomy state. No filling defect is seen in the common bile duct. Pancreas: No ductal dilation. OTHER: Lung bases: Unremarkable. Liver: No solid mass. No significant drop in signal intensity is seen within the liver on out of phase images to suggest significant fatty infiltration. Spleen: Size is within normal limits. Adrenal Glands: No adrenal nodules. Kidneys and Ureters: No hydronephrosis. No solid mass. No complex renal cystic lesion which requires follow up. Simple parapelvic left renal cysts. Mild bilateral perinephric stranding, which is nonspecific and may be chronic. Kidneys enhance normally. Stomach and Bowel: Normal colonic caliber, without significant wall thickening. Peritoneum: No abnormal intraperitoneal fluid. No free air. Ventral Wall: No hernia. Abdominal Nodes: No retroperitoneal or mesenteric adenopathy by size criteria. Vessels: Aorta and inferior vena cava are normal in size. Bones: No aggressive osseous abnormality. Benign hemangioma is noted within a lower thoracic vertebral body. IMPRESSION: 1. Status post cholecystectomy. Fluid collection again seen in the gallbladder fossa measuring up to 3.5 cm, mildly decreased in size when compared to the CT from 11/23/2024. This finding again most likely represents a chronic biloma or seroma. 2. Pancreas enhances normally. No acute peripancreatic collection. 3. Biliary ducts are within normal limits in the post cholecystectomy state. No choledocholith. 4. Bilateral perinephric stranding is nonspecific and may be chronic although ascending infection is not entirely excluded and correlation with urinalysis is recommended. Kidneys enhance normally. No hydronephrosis Approved by: Jasbir Drake M.D. on 03/12/2025 at 9:50
[2025-03-12] MEDS: HYDROMORPHONE 1 MG INJ IV (06:21)
[2025-03-12] MEDS: ONDANSETRON 4 MG/2 ML INJ IV (06:25)
[2025-03-12] MEDS: SODIUM CHLORIDE 0.9% 1,000 ML 150 ML IV (06:44)
--- NOTE | 2025-03-12 07:35 | PM.HP.1 ---
History of Present Illness History of Present Illness Chief complaint: Angina Narrative: 70-year-old male with past medical history of dementia, coronary disease status post 7 stents, paroxysmal atrial fibrillation, type 1 diabetes, hypertension, lipidemia, cholecystectomy September 2024 at [facility] presents with complaint of abdominal pain. Per the patient's report the patient had some epigastric pain and lower chest pain. The patient states that he took 2 nitros which completely resolved his symptoms. However the patient woke up around 1 AM and started to have the pain again. The patient took 4 baby aspirin and 1 nitroglycerin and now the pain has resolved. Otherwise the patient denies any recent nausea vomiting, diarrhea, fever, chills, shortness of breath or syncope. In the emergency room, the patient was hemodynamically stable. Tropes were negative x 2. EKG shows no sign of acute ischemia. Lipase however was elevated at 2587. Bilirubin normal AST [address] Of note [address] scan shows no clear sign of acute pancreatitis though right upper quadrant abdominal cell shows so no dilatation of the bile duct and shows status post cholecystectomy. Our ER physician request admission for acute pancreatitis. Of note patient denies any use of alcohol. [facility] Medical History (Updated 03/12/25 @ 06:51 by Matty Ventura DO) Accidental overdose Arm contusion Abrasions of multiple sites Inguinal hernia of right side without obstruction or gangrene Hypertension Type 1 diabetes mellitus GERD (gastroesophageal reflux disease) Elevated LFTs Iron deficiency anemia History of UTI BPH w urinary obs/LUTS Urinary incontinence without sensory awareness Urinary incontinence due to severe physical disability Sleep apnea Ankle fracture, right Mumps Measles Chicken pox History of urinary incontinence Fecal incontinence Hemorrhoid Colitis Diastolic heart failure Hyperlipidemia Benign essential HTN Type 2 diabetes mellitus without complication, with long-term current use of insulin (~2005) Dementia Recurrent UTI Diabetes mellitus, insulin dependent (IDDM), controlled CAD (coronary artery disease) Surgical History (Updated 10/23/24 @ 12:02 by Teresa Ramos DO) Anesthesia History of cataract removal with insertion of prosthetic lens (~2021) H/O heart artery stent History of heart artery stent Urethral diverticulum Family History Mother Polycystic kidney History of heart disease Hypertension Father Coronary artery disease Brother Diabetes mellitus History of heart disease Polycystic kidney Social History marital status: household members: spouse lives independently: Yes occupational status: previously employed Smoking Status: Never smoker alcohol intake: current Meds Home Medications and Allergies Home Medications Medication Instructions Recorded Confirmed Type cyanocobalamin (vitamin B-12) 1,000 mcg PO DAILY 10/06/21 12/28/24 History 1,000 mcg capsule nitroglycerin 0.4 mg sublingual 0.4 mg sublingual Q5M PRN Chest 10/06/21 12/28/24 History tablet (Nitrostat) Pain blood sugar diagnostic (Contour 11/05/22 12/28/24 History Next Test Strips) cholecalciferol (vitamin D3) 25 50 mcg PO DAILY 11/05/22 12/28/24 History mcg (1,000 unit) capsule (Vitamin D3) clopidogrel 75 mg tablet 75 mg PO DAILY 11/05/22 12/28/24 History empagliflozin 10 mg tablet 10 mg PO QAM 11/05/22 12/28/24 History (Jardiance) insulin aspart U-100 100 unit/mL 1 sliding scale dose SUBCUT 11/05/22 12/28/24 History subcutaneous solution (Novolog USEASDIRECTD U-100 Insulin aspart) metformin 1,000 mg tablet 1,000 mg PO BID 08/05/23 12/28/24 History lisinopril 5 mg tablet 5 mg PO DAILY 02/01/24 12/28/24 History multivitamin with iron 1 tab PO DAILY Low iron level 05/19/24 12/28/24 History tamsulosin 0.4 mg capsule 0.4 mg PO BEDTIME #90 caps 06/13/24 12/28/24 Rx L.acidophilus-B.animalis-B.longum 1 cap PO DAILY 09/02/24 12/28/24 History 15 billion cell capsule (Florajen Digestion) omega 4-lgm-cpc-fish oil 1,000 mg 1 cap PO DAILY 09/02/24 12/28/24 History (120 mg-180 mg) capsule (Fish Oil) mirabegron 50 mg tablet,extended 50 mg PO DAILY Bladder 12/08/24 12/28/24 History release 24 hr (Myrbetriq) memantine 5 mg tablet 5 mg PO QPM #90 tabs 12/16/24 12/28/24 Rx donepezil 10 mg tablet 10 mg PO BEDTIME #90 tabs 12/27/24 12/28/24 Rx ascorbic acid (vitamin C) 500 mg 500 mg PO DAILY 12/28/24 12/28/24 History tablet (Vitamin C) glucagon 3 mg/actuation nasal 3 mg intranasal ONCE PRN 12/28/24 12/28/24 History spray (Baqsimi) magnesium chloride 64 mg 64 mg PO BID 12/28/24 12/28/24 History tablet,extended release rosuvastatin 5 mg tablet 5 mg PO Q OTHER DAY 12/28/24 12/28/24 History Allergies Allergy/AdvReac Type Severity Reaction Status Date / Time levothyroxine Allergy Verified 12/28/24 07:40 Quinolones Allergy Verified 12/28/24 07:40 levofloxacin AdvReac Severe Hallucinati Verified 12/28/24 07:40 ng clindamycin AdvReac Intermediate Rash Verified 12/28/24 07:40 spironolactone AdvReac Intermediate rash Verified 12/28/24 07:40 Review of Systems Review of Systems ROS: Yes All systems reviewed with the patient and are negative except as otherwise documented Exam Vital Signs (past 8 hours): - 03/12/25 02:24 03/12/25 02:28 03/12/25 02:30 Temperature 97.4 F L Pulse Rate 52 L 47 L 49 L Respiratory Rate 14 Blood Pressure 129/63 Pulse Oximetry 98 98 98 Oxygen Delivery Method Room Air 03/12/25 02:30 03/12/25 03:00 03/12/25 03:01 Temperature Pulse Rate 40 L Respiratory Rate 18 Blood Pressure 129/63 114/57 L Pulse Oximetry 98 Oxygen Delivery Method 03/12/25 03:30 03/12/25 03:30 03/12/25 04:00 Temperature Pulse Rate 42 L 42 L Respiratory Rate 32 H 34 H Blood Pressure 165/79 H Pulse Oximetry 98 98 Oxygen Delivery Method 03/12/25 04:01 03/12/25 04:01 03/12/25 04:30 Temperature Pulse Rate 43 L 44 L Respiratory Rate 35 H 20 Blood Pressure 148/70 H Pulse Oximetry 97 Oxygen Delivery Method 03/12/25 04:31 03/12/25 05:00 03/12/25 05:01 Temperature Pulse Rate 50 L Respiratory Rate 18 Blood Pressure 183/82 H 189/92 H Pulse Oximetry 97 Oxygen Delivery Method 03/12/25 05:30 03/12/25 05:31 03/12/25 05:31 Temperature Pulse Rate 46 L 47 L Respiratory Rate 20 18 Blood Pressure 152/68 H Pulse Oximetry 96 96 Oxygen Delivery Method 03/12/25 06:00 03/12/25 06:01 03/12/25 06:31 Temperature Pulse Rate 46 L 48 L Respiratory Rate 18 18 Blood Pressure 194/78 H Pulse Oximetry 97 96 Oxygen Delivery Method 03/12/25 06:31 03/12/25 07:00 03/12/25 07:01 Temperature Pulse Rate 50 L Respiratory Rate 30 H Blood Pressure 125/65 162/70 H Pulse Oximetry 96 Oxygen Delivery Method 03/12/25 07:01 03/12/25 07:15 03/12/25 07:15 Temperature 97.5 F L Pulse Rate 44 L 46 L Respiratory Rate 43 H 28 H Blood Pressure 178/72 H Pulse Oximetry 95 96 Oxygen Delivery Method 03/12/25 07:30 03/12/25 07:31 03/12/25 07:31 Temperature Pulse Rate 42 L 43 L Respiratory Rate 38 H 41 H Blood Pressure 123/57 L Pulse Oximetry 96 94 Oxygen Delivery Method Oxygen Delivery Method Room Air Narrative Exam Narrative: Physical Exam: GENERAL: The patient is not in any acute distressed. Awake and alert. HEENT: Nonicteric sclerae, PERRLA, EOMI. Oropharynx clear. Moist mucous membranes. Conjunctivae appear well perfused. HEART: Regular rate and rhythm without murmurs. No lower extremities edema. LUNGS: Clear to auscultation bilaterally. No wheezing, crackles or rhonchi ABDOMEN: Soft, positive bowel sounds, nontender. SKIN: No rash, no excessive bruising, petechiae, or purpura. NEUROLOGIC: AxO x 2. Cranial nerves II-XII intact without motor/sensory deficit. Objective Labs 03/12/25 02:25 03/12/25 02:25 Labs: Laboratory Results - last 24 hr 03/12/25 03/12/25 02:25 05:10 WBC 7.2 RBC 4.58 Hgb 14.3 Hct 41.1 MCV 89.6 MCH 31.2 MCHC 34.8 RDW 13.5 Plt Count 174 Neut % (Auto) 69.1 Lymph % (Auto) 19.9 L [place] % (Auto) 6.2 Eos % (Auto) 4.4 H Baso % (Auto) 0.4 Neut # (Auto) 5000 Lymph # (Auto) 1400 [place] # (Auto) 500 Eos # (Auto) 300 Baso # (Auto) 0 PT 11.0 INR 1.0 APTT 34 Sodium 135 L Potassium 3.9 Chloride 104 Carbon Dioxide 25 BUN 25 H Creatinine 0.82 Estimated GFR > 60 BUN/Creatinine Ratio 30.5 H Glucose 134 H Calcium 8.9 Magnesium 1.8 Total Bilirubin 0.6 AST 286 H ALT 172 H Alkaline Phosphatase 69 Total Creatine Kinase 53 L Troponin I < 0.012 < 0.012 NT-Pro-B Natriuret Pep 254 H Total Protein 5.4 L Albumin 3.4 L Globulin 2.0 Albumin/Globulin Ratio 1.7 Lipase 2587 H Assessment & Plan Assessment & Plan narrative: Acute pancreatitis. Admit the patient to medical telemetry as inpatient. Of note no clear etiology as patient denies any alcohol and patient has a history of cholecystectomy. Of note right upper quadrant abdominal ultrasound shows no ductal dilatation. Bilirubin normal. AST ALT however is slightly elevated. NPO. IV fluid. Pain control. Transaminitis. Again bilirubin normal. No signs of gallstone obstruction per right upper quadrant abdominal ultrasound. Monitor for now. Dementia. Resume home medication. Coronary disease. Resume home Plavix and other cardiac medication. Insulin-dependent diabetes. Monitor glucose while NPO. Treat with subcu insulin as needed. Hyperlipidemia. Resume home statin once medications reconciled. BPH. Resume home Flomax. DVT prophylaxis heparin subcu. CODE STATUS full code. Disposition likely home in 2 to 3 days - As the provider of this telehealth evaluation, requested by the patient's evaluating physician, I attest that I introduced myself to the patient, provided my credentials and determined that telemedicine via a real-time, 2 way interactive audio and video platform is an appropriate and effective means of providing this service. - I reviewed the patient's chart and had a discussion with the member of the patient's treatment team. - The patient and I mutually agreed with continuation of this evaluation via telemedicine. The patient consented for the telemedicine evaluation. - This virtual encounter was taken place from [place] by Dr. Jovany Frost. The patient was evaluated at [facility]. The encounter was approximately 35 minutes. The nurse was present during the entire time of the encounter and was able to move the stethoscope in appropriate directions. Time-Based Coding :: [TOTAL MINUTES] spent with patient and on the chart (including review of chart, obtaining history, exam, reviewing outside data, placing orders, documenting exam and treatment plan, and counseling patient) on [DATE].
--- NOTE | 2025-03-12 07:36 | PC.NURSE ---
Pt sitting on stretcher, RA, NAD, breathing even/equal/unlabored at this time. Call light within reach and pt close to nurses station in line of sight with this RN
--- NOTE | 2025-03-12 08:18 | PC.NURSE ---
Pt updated to plan of care- pt going to MRI then will be admitted to floo, pt verbalized understanding. Pt voided 200ml urine with urinal. Pt resting on stretcher, RA, NAD, A&Ox3, denies CP/SOB/nausea at this time. Call light within reach, no other needs at this time.
--- NOTE | 2025-03-12 09:30 | PC.NURSE ---
Report to Dania VALDIVIA
--- NOTE | 2025-03-12 11:23 | PC.NURSE ---
Patient heart rate dipped down to 38. Nurse in room to collect vitals. BP: 145/65 (88), HR: 43 98% on RA. Patient reports feeling tired. Provider notified of Etienne episode and cardiac history. No further orders given at this time. Patient remains under observation and tele monitoring
[2025-03-12] MEDS: CLOPIDOGREL 75 MG TABLET PO (13:00)
--- NOTE | 2025-03-12 13:57 | P.PN_ITS ---
Subjective Subjective Interval history: 70-year-old male with dementia, coronary artery disease status post 7 stents, paroxysmal atrial fibrillation, diabetes mellitus type 1, pancreatic insufficiency on pancreatic enzymes, hyperlipidemia, prior cholecystectomy who was admitted this morning with acute pancreatitis. He did have some bradycardia early this morning but was completely asymptomatic with normal blood pressures. Currently, he reports his abdominal pain is much improved. He would like to trial clear liquids. He notes he did eat a fatty meal last evening. He had fish and chips. He also had 1-1/2 glasses of wine. His notes that he takes pancreatic enzymes with meals and fatty snacks. She forgot to bring the enzymes with them when they went out to eat last night. Exam Vital Signs (past 8 hours): - 03/12/25 06:00 03/12/25 06:01 03/12/25 06:31 Temperature Pulse Rate 46 L 48 L Respiratory Rate 18 18 Blood Pressure 194/78 H Pulse Oximetry 97 96 Oxygen Flow Rate 03/12/25 06:31 03/12/25 07:00 03/12/25 07:01 Temperature Pulse Rate 50 L Respiratory Rate 30 H Blood Pressure 125/65 162/70 H Pulse Oximetry 96 Oxygen Flow Rate 03/12/25 07:01 03/12/25 07:15 03/12/25 07:15 Temperature 97.5 F L Pulse Rate 44 L 46 L Respiratory Rate 43 H 28 H Blood Pressure 178/72 H Pulse Oximetry 95 96 Oxygen Flow Rate 03/12/25 07:30 03/12/25 07:31 03/12/25 07:31 Temperature Pulse Rate 42 L 43 L Respiratory Rate 38 H 41 H Blood Pressure 123/57 L Pulse Oximetry 96 94 Oxygen Flow Rate 03/12/25 07:43 03/12/25 08:00 03/12/25 08:00 Temperature 97.3 F L Pulse Rate 43 L Respiratory Rate 14 38 H Blood Pressure 139/73 Pulse Oximetry 94 Oxygen Flow Rate 03/12/25 08:30 03/12/25 08:30 03/12/25 10:00 Temperature Pulse Rate 40 L 50 L Respiratory Rate 37 H Blood Pressure 146/66 H 138/82 Pulse Oximetry 95 98 Oxygen Flow Rate 0 03/12/25 11:27 Temperature Pulse Rate 43 L Respiratory Rate Blood Pressure 145/65 H Pulse Oximetry 98 Oxygen Flow Rate Oxygen Delivery Method Room Air Oxygen Flow Rate 0 Narrative Exam Narrative: GEN: Elderly male, Alert and oriented x 2, NAD HEENT:NC, Face symmetric CHEST: Respiratory excursions symmetric, CTAB CV: RRR, no M/R/G ABD: Soft, NT/ND, BT present in all 4 quadrants, no organomegaly or masses EXTR: warm, well perfused, no C/C/E SKIN: warm and dry, no rash NEURO: Alert and oriented x 2, nonfocal Objective Labs 03/12/25 02:25 03/12/25 02:25 Labs: Laboratory Results - last 24 hr 03/12/25 03/12/25 02:25 05:10 WBC 7.2 RBC 4.58 Hgb 14.3 Hct 41.1 MCV 89.6 MCH 31.2 MCHC 34.8 RDW 13.5 Plt Count 174 Neut % (Auto) 69.1 Lymph % (Auto) 19.9 L [place] % (Auto) 6.2 Eos % (Auto) 4.4 H Baso % (Auto) 0.4 Neut # (Auto) 5000 Lymph # (Auto) 1400 [place] # (Auto) 500 Eos # (Auto) 300 Baso # (Auto) 0 PT 11.0 INR 1.0 APTT 34 Sodium 135 L Potassium 3.9 Chloride 104 Carbon Dioxide 25 BUN 25 H Creatinine 0.82 Estimated GFR > 60 BUN/Creatinine Ratio 30.5 H Glucose 134 H Calcium 8.9 Magnesium 1.8 Total Bilirubin 0.6 AST 286 H ALT 172 H Alkaline Phosphatase 69 Total Creatine Kinase 53 L Troponin I < 0.012 < 0.012 NT-Pro-B Natriuret Pep 254 H Total Protein 5.4 L Albumin 3.4 L Globulin 2.0 Albumin/Globulin Ratio 1.7 Lipase 2587 H [facility] Medical History (Updated 03/12/25 @ 06:51 by Matty Ventura, DO) Accidental overdose Arm contusion Abrasions of multiple sites Inguinal hernia of right side without obstruction or gangrene Hypertension Type 1 diabetes mellitus GERD (gastroesophageal reflux disease) Elevated LFTs Iron deficiency anemia History of UTI BPH w urinary obs/LUTS Urinary incontinence without sensory awareness Urinary incontinence due to severe physical disability Sleep apnea Ankle fracture, right Mumps Measles Chicken pox History of urinary incontinence Fecal incontinence Hemorrhoid Colitis Diastolic heart failure Hyperlipidemia Benign essential HTN Type 2 diabetes mellitus without complication, with long-term current use of insulin (~2005) Dementia Recurrent UTI Diabetes mellitus, insulin dependent (IDDM), controlled CAD (coronary artery disease) Surgical History (Updated 10/23/24 @ 12:02 by Teresa Ramos DO) Anesthesia History of cataract removal with insertion of prosthetic lens (~2021) H/O heart artery stent History of heart artery stent Urethral diverticulum Family History Mother Polycystic kidney History of heart disease Hypertension Father Coronary artery disease Brother Diabetes mellitus History of heart disease Polycystic kidney Social History marital status: household members: spouse lives independently: Yes occupational status: previously employed Smoking Status: Never smoker alcohol intake: current Assessment & Plan Assessment & Plan narrative: 1. Acute pancreatitis Abdominal pelvic CT revealed a normally enhancing pancreas without significant peripancreatic edema. Abdominal ultrasound revealed mild hepatomegaly and diffusely increased hepatic echogenicity. Small amount of fluid in the gallbladder fossa. MRCP revealed fluid collection in the gallbladder fossa measuring up to 3.5 cm felt to represent a chronic biloma or seroma. There is no acute peripancreatic fluid collection. No choledocholith noted. Labs revealed an AST of 286, ALT of 172, alk-phos 69, bilirubin of 0.6. Troponin was negative x2. Lipase was 2587. Discussed with the patient and his that he likely can not tolerate combination of fatty meal, alcohol, and not taking his pancreatic enzymes. They expressed understanding. At this time he would like to advance his diet to clear liquids, which will be accomplished. 2. Perinephric stranding seen on imaging Will obtain a UA for completeness sake. He is not endorsing any urinary symptoms. 3. Transaminitis Will repeat LFTs tomorrow. 4. Coronary artery disease Troponins were negative in the emergency department. He does have some mild bradycardia today, but normal blood pressures and he is asymptomatic. Will monitor. 5. Diabetes mellitus type 1 Continue monitoring blood sugars. Continue insulin. 6. Hyperlipidemia Resume statin once he is discharged 7. BPH Continue usual home medications 8. Dementia Continue usual home medication Code status Full Prophylaxis On heparin Disposition Continue acute inpatient care Time-Based Coding :: [TOTAL MINUTES] spent with patient and on the chart (including review of chart, obtaining history, exam, reviewing outside data, placing orders, documenting exam and treatment plan, and counseling patient) on [DATE].
[2025-03-12 18:51] LABS: Appearance Urine UA CLEAR; Bilirubin Urine UA NEGATIVE (NEGATIVE); Glucose Urine UA 3+ g/dL (Negative); Ketones Urine UA NEGATIVE (NEGATIVE); Leukocyte Esterase Urine UA NEGATIVE (NEGATIVE); Nitrite Urine UA NEGATIVE (Negative); Occult Blood Urine UA NEGATIVE (Negative); Protein Urine UA NEGATIVE (Negative); Urobilinogen Urine UA 0.2 E.U./dL (0.2); pH Urine UA 5.5 (4.5-8.0)
[2025-03-12 18:52] LABS: Color Urine UA Yellow
[2025-03-12 19:29] LABS: Bacteria Urine None Seen; Culture Indicated Urine Cult Not Indicated; RBC Urine None Seen (0-5/HPF); Squamous Epithelial Cell Urine None Seen (0-5/HPF); Urine Volume 10mL (spun); WBC Urine None Seen (0-5/HPF)
[2025-03-12] MEDS: HEPARIN 5,000 UNIT/ML VIAL 5000 UNIT SUBCUT (21:25)
[2025-03-12] MEDS: MAGNESIUM CHLORIDE 64 MG TABLET PO (21:25)
[2025-03-12] MEDS: DONEPEZIL 5 MG TABLET 10 MG PO (21:25)
[2025-03-12] MEDS: MEMANTINE HCL 5 MG TABLET PO (21:25)
[2025-03-12] MEDS: TAMSULOSIN 0.4 MG CAPSULE PO (21:25)
[2025-03-12] MEDS: INSULIN GLARGINE 100 UNIT/ML 3ML PEN 20 UNIT SUBCUT (22:16)
[2025-03-13] MEDS: INSULIN LISPRO 100 UNIT/ML 3ML VIAL 6 UNIT SUBCUT (02:32)
--- NOTE | 2025-03-13 04:41 | PC.NURSE ---
Patients HR was dropping into the high 30's. Notified Dr. Frost, he said that as long as BP is ok and patient is asymptomatic, it is ok.
[2025-03-13 06:36] LABS: Add Manual Diff / Slide Review NO; Basophils Absolute Auto 0 /uL (0-100); Basophils Percent Auto 0.4 % (0-2); Eosinophils Absolute Auto 200 /uL (0-450); Eosinophils Percent Auto 3.6 % (2-4); Hematocrit 41.4 % (41-53); Hemoglobin 14.1 g/dL (13.5-17.5); Lymphocytes Absolute Auto 1100 /uL (1100-4500); Lymphocytes Percent Auto 19.8 % (25-40); Mean Corpuscular HGB Conc 34.1 % (30-36); Mean Corpuscular Volume 90.9 fL (80-100); Monocytes Absolute Auto 400 /uL (0-900); Monocytes Percent Auto 6.3 % (3-14); Neutrophils Absolute Auto 3900 /uL (1500-7000); Neutrophils Percent Auto 69.9 % (50-75); Platelet Count 150 X10^3/uL (150-400); Red Blood Cell Count 4.55 X10^6/uL (4.5-5.9); Red Cell Distribution Width 13.4 % (11.6-14.8); White Blood Cell Count 5.6 X10^3/uL (4.5-11.0)
[2025-03-13 06:48] LABS: Alanine Aminotransferase 342 IU/L (<50); Albumin 3.2 g/dL (3.5-5.0); Albumin Globulin Ratio 1.6 (1.0-2.8); Alkaline Phosphatase 73 U/L (38-126); Aspartate Aminotransferase 174 IU/L (17-59); BUN Creatinine Ratio 23.8 (6-22); Bilirubin Total 0.6 mg/dL (0.2-1.3); Blood Urea Nitrogen 19 mg/dL (9-20); Calcium 8.5 mg/dL (8.4-10.2); Carbon Dioxide 31 mmol/L (22-32); Chloride 104 mmol/L (98-107); Estimated Glomerular Filt Rate > 60 mL/min (>60); Glucose 141 mg/dL (70-99); HEMOLYSIS < 15 (0-50); Potassium 3.9 mmol/L (3.4-5.1); Sodium 137 mmol/L (137-145); Total Protein 5.2 g/dL (6.3-8.2)
--- NOTE | 2025-03-13 07:00 | PC.NURSE ---
Patient using continuous glucose monitor, explained to me how to use it. BS was 322, he gave himself a bolus, but unable to recall how to find how much the bolus was. Per hospital protocol it is contraindicated to use continuous glucose monitor for a pt with dementia. Patient agreeable to remove CGM, got order for sliding scale. Rechecked insulin at 02:00, bs 265. Received order from Dr. Frost to give a 1 time dose of 6U lispro.
--- NOTE | 2025-03-13 07:30 | PM.PN.1 ---
Subjective Subjective Interval history: Summary: 70-year-old male with dementia, coronary artery disease status post 7 stents, paroxysmal atrial fibrillation, diabetes mellitus type 1, pancreatic insufficiency on pancreatic enzymes, hyperlipidemia, prior cholecystectomy who was admitted this morning with acute pancreatitis. He did have some bradycardia early this morning but was completely asymptomatic with normal blood pressures. Currently, he reports his abdominal pain is much improved. He would like to trial clear liquids. He notes he did eat a fatty meal last evening. He had fish and chips. He also had 1-1/2 glasses of wine. His notes that he takes pancreatic enzymes with meals and fatty snacks. She forgot to bring the enzymes with them when they went out to eat last night. S: He was doing well. His abdominal pain has resolved. He has been on a clear liquid diet and would like to advance to a regular diet. He denies any diarrhea. He had a 9 beat run of V-tach noted on telemetry, this is asymptomatic. He has a history of 2 myocardial infarctions and 2 stents. He was followed by [facility]. Exam Vital Signs (past 8 hours): Oxygen Delivery Method Room Air Oxygen Flow Rate 0 Narrative Exam Narrative: NAD, alert and oriented. Fluent speech. Lungs are clear, normal rate and effort. Heart is regular, no murmur gallop or rub. Abdomen is soft, non distended. Extremities are free of edema. Objective Labs 03/13/25 06:10 03/13/25 06:10 Labs: Laboratory Results - last 24 hr 03/12/25 03/13/25 18:30 06:10 WBC 5.6 RBC 4.55 Hgb 14.1 Hct 41.4 MCV 90.9 MCH 31.0 MCHC 34.1 RDW 13.4 Plt Count 150 Neut % (Auto) 69.9 Lymph % (Auto) 19.8 L [place] % (Auto) 6.3 Eos % (Auto) 3.6 Baso % (Auto) 0.4 Neut # (Auto) 3900 Lymph # (Auto) 1100 [place] # (Auto) 400 Eos # (Auto) 200 Baso # (Auto) 0 Sodium 137 Potassium 3.9 Chloride 104 Carbon Dioxide 31 BUN 19 Creatinine 0.80 Estimated GFR > 60 BUN/Creatinine Ratio 23.8 H Glucose 141 H Calcium 8.5 Total Bilirubin 0.6 AST 174 H ALT 342 H Alkaline Phosphatase 73 Total Protein 5.2 L Albumin 3.2 L Globulin 2.0 Albumin/Globulin Ratio 1.6 Urine Color Yellow Urine Appearance Clear Urine pH 5.5 Ur Specific [place] 1.020 Urine Protein Negative Urine Glucose (UA) 3+ H Urine Ketones Negative Urine Occult Blood Negative Urine Nitrate Negative Urine Bilirubin Negative Urine Urobilinogen 0.2 Ur Leukocyte Esterase Negative Urine RBC None seen Urine WBC None seen Ur Squamous Epith Cells None seen Urine Bacteria None seen Ur Culture Indicated? Cult not indicated Vol Urine Centrifuged 10ml (spun) [facility] Medical History Accidental overdose Arm contusion Abrasions of multiple sites Inguinal hernia of right side without obstruction or gangrene Hypertension Type 1 diabetes mellitus GERD (gastroesophageal reflux disease) Elevated LFTs Iron deficiency anemia History of UTI BPH w urinary obs/LUTS Urinary incontinence without sensory awareness Urinary incontinence due to severe physical disability Sleep apnea Ankle fracture, right Mumps Measles Chicken pox History of urinary incontinence Fecal incontinence Hemorrhoid Colitis Diastolic heart failure Hyperlipidemia Benign essential HTN Type 2 diabetes mellitus without complication, with long-term current use of insulin (~2005) Dementia Recurrent UTI Diabetes mellitus, insulin dependent (IDDM), controlled CAD (coronary artery disease) Surgical History Anesthesia History of cataract removal with insertion of prosthetic lens (~2021) H/O heart artery stent History of heart artery stent Urethral diverticulum Family History Mother Polycystic kidney History of heart disease Hypertension Father Coronary artery disease Brother Diabetes mellitus History of heart disease Polycystic kidney Social History marital status: household members: spouse lives independently: Yes occupational status: previously employed Smoking Status: Never smoker alcohol intake: current Assessment & Plan Assessment & Plan narrative: 1. Acute pancreatitis Abdominal pelvic CT revealed a normally enhancing pancreas without significant peripancreatic edema. Abdominal ultrasound revealed mild hepatomegaly and diffusely increased hepatic echogenicity. Small amount of fluid in the gallbladder fossa. MRCP revealed fluid collection in the gallbladder fossa measuring up to 3.5 cm felt to represent a chronic biloma or seroma. There is no acute peripancreatic fluid collection. No choledocholith noted. Labs revealed an AST of 286, ALT of 172, alk-phos 69, bilirubin of 0.6. Troponin was negative x2. Lipase was 2587. Discussed with the patient and his that he likely can not tolerate combination of fatty meal, alcohol, and not taking his pancreatic enzymes. They expressed understanding. At this time he would like to advance his diet to clear liquids, which will be accomplished. 2. Perinephric stranding seen on imaging Will obtain a UA for completeness sake. He is not endorsing any urinary symptoms. 3. Transaminitis Will repeat LFTs tomorrow. 4. Coronary artery disease Troponins were negative in the emergency department. He does have some mild bradycardia today, but normal blood pressures and he is asymptomatic. Will monitor. 5. Diabetes mellitus type 1 Continue monitoring blood sugars. Continue insulin. 6. Hyperlipidemia Resume statin once he is discharged 7. BPH Continue usual home medications 8. Dementia Continue usual home medication 9. Nonsustained ventricular tachycardia on March 13. Plan: -advance diet to general. -continue telemetry. -2D echo to assess EF. Code status Full Prophylaxis On heparin Time-Based Coding :: [TOTAL MINUTES] spent with patient and on the chart (including review of chart, obtaining history, exam, reviewing outside data, placing orders, documenting exam and treatment plan, and counseling patient) on [DATE].
[2025-03-13 08:00] VITALS: BP 121/71; PULSE 55; RESP 16; TEMP 36; O2SAT 100
[2025-03-13] MEDS: CLOPIDOGREL 75 MG TABLET PO (08:16)
[2025-03-13] MEDS: HEPARIN 5,000 UNIT/ML VIAL 5000 UNIT SUBCUT ×2 (08:16→20:14)
[2025-03-13] MEDS: OXYBUTYNIN 5 MG ER TAB 10 MG PO (08:16)
[2025-03-13] MEDS: lisinopriL 5 MG TABLET PO (08:16)
[2025-03-13] MEDS: MAGNESIUM CHLORIDE 64 MG TABLET PO ×2 (08:16→20:14)
[2025-03-13] MEDS: INSULIN LISPRO 100 UNIT/ML 3ML VIAL SUBCUT ×5 (08:17→20:24)
--- NOTE | 2025-03-13 08:56 | PC.NURSE ---
Addendum entered by Radha Bhatt R.N. 03/13/25 18:08: Late Entry: Patient had a 14 beat run of vtach earlier in the day, notified with orders for a magnesium draw. He has not had anymore of this thus far. Patient is confused and sundowns around 1500 until evening hours. He has set off his alarms a few times this afternoon. He forgets where he is, very pleasant with no confrontation or agitation. Original Note: Patient is alert and oriented x2/3. he has a red bottom that is blanchable. Up with sba and walker, voices no complaints of discomfort. Blood pressure wnl, p55. All medications given. Patient tolerated his full liquid breakfast. Resting comfortably.
[2025-03-13 10:06] LABS: Magnesium 1.9 mg/dL (1.6-2.3)
[2025-03-13 12:00] VITALS: BP 108/65; PULSE 53; RESP 15; TEMP 36.1; O2SAT 97
--- NOTE | 2025-03-13 13:31 | CM.DANOTE ---
Patient is a 70 yo male who was admitted INPT Status on 03/12/25 for Angina. Pt has [facility] and [employer] for insurance and his PCP is Dr. Treesa Ramos. EMR was reviewed. Per MD, pt with hx of mild dementia, AFIB, DM type 1, had cholecystectomy in Sep 2024 at [facility] and admitted with Acute pancreatitis. Pt's pain seems controlled and advancing his diet to see how he tolerates and watching pt's heart rate and likely plan of discharge home tomorrow if stable. SW met bedside with pt and spouse and they confirm they live at home in [place] and are mostly independent with ADLs at baseline. Pt does not drive due to short term memory issues and spouse drives and assists pt as needed. They deny any recent HH but pt has used it in the past after surgeries and spouse does not feel HH needed at this time. No other formal services in place and spouse provided copies of Advanced Directives and POA info and was scanned into chart and spouse is pt's POA. Spouse states they are in the process of moving from the home of 15 yrs which is a 4 level house with many stairs into a smaller one level house and they have had increased stress with the sale and move and they do not have any other local family but they do have supportive local friends. Pt and spouse do not anticipate any discharge planning needs at this time and preference is home and spouse confirms she will provide transport at d/c. Plan: SW to follow for advancing diet and monitoring overnight for plan of discharge home tomorrow Tu03/14 if medically stable and any further identified discharge planning needs. CALLUM Marr Discharge Planning/Care Management CM Discharge Assessment Start: 03/12/25 07:20 Freq: Status: Active Protocol: Document 03/13/25 13:28 BF (Rec: 03/13/25 13:31 BF [id number]) Discharge Planning Assessment Assigned Cq Developer CALLUM Dalton DPOA/Assigned Designee Name spouse Amira Contact Information [phone] Advance Directives? Yes: just made copy to scan into EMR Advance Directives on File Yes History Provided By Patient,Significant Other, Medical Record Has Patient been admitted in last 30 No days? Prior Living Arrangements House Household Members spouse Type of transporation used prior to Relies on Others admit Independent with ADL's Yes: mostly Is patient alert and oriented? Yes: dementia/memory issues Needs Assistance With Managing Medications,Home Chores / Shopping Caregiver for Another No Barriers to Discharge No Discharge Plan Home Transportation Arrangement Spouse plans to transport home at d/c Referrals Initiated None needed Additional Comment Spouse does not feel HH needed . Whiteboard Updated in Patient Room with Yes name and ext. # of Cq Developer Review Status In Process Please Provide Date Initial DC 03/13/25 Assessment Was Performed Next Review Type Continued Stay Review
[2025-03-13 16:09] LABS: Hemoglobin A1C% w Est Avg Glu 7.4 % (4.0-6.0)
[2025-03-13] MEDS: CREON 2 EACH PO (16:54)
[2025-03-13 17:00] VITALS: BP 136/55; PULSE 52
[2025-03-13 20:00] VITALS: BP 131/69; PULSE 54; RESP 17; TEMP 35.9; O2SAT 99
[2025-03-13] MEDS: DONEPEZIL 5 MG TABLET 10 MG PO (20:14)
[2025-03-13] MEDS: MEMANTINE HCL 5 MG TABLET PO (20:14)
[2025-03-13] MEDS: TAMSULOSIN 0.4 MG CAPSULE PO (20:14)
[2025-03-13] MEDS: INSULIN GLARGINE 100 UNIT/ML 3ML PEN 20 UNIT SUBCUT (20:22)
[2025-03-14 05:20] VITALS: BP 122/59; PULSE 44; RESP 16; TEMP 36.1; O2SAT 99
[2025-03-14 06:27] LABS: BUN Creatinine Ratio 24.3 (6-22); Blood Urea Nitrogen 18 mg/dL (9-20); Calcium 8.3 mg/dL (8.4-10.2); Carbon Dioxide 29 mmol/L (22-32); Chloride 102 mmol/L (98-107); Estimated Glomerular Filt Rate > 60 mL/min (>60); Glucose 106 mg/dL (70-99); HEMOLYSIS < 15 (0-50); Magnesium 1.9 mg/dL (1.6-2.3); Potassium 3.8 mmol/L (3.4-5.1); Sodium 134 mmol/L (137-145)
[2025-03-14 06:39] LABS: Troponin I < 0.012 ng/mL (0.01-0.034)
--- NOTE | 2025-03-14 07:35 | DI.ECHO.S_ITS ---
[facility]---------+ [facility] : : [address] : : [place] : : [id number] : : Phone: [phone] Echocardiogram Report + + :Name: LOLITA TERRELL Study Date: 03/14/2025 Height: 70 in : :Hospital ReadingLocation: Weight: 160 lb: : Gender: Male BSA: 1.9 m2 : :: 1955 Age: 70 yrs : :Reason For Study: VENTRICULAR TACHYCARDIA : :Ordering Physician: LISA, : :YOLY Bethea Performed By: Dania See : :Referring: YOLY GONZALEZ : + + Interpretation Summary Left ventricular ejection fraction is estimated to be 30%. Apical akinesis, severe anterior hypokinesis Procedure: A two-dimensional transthoracic echocardiogram with color flow and Doppler was performed in limited views only to assess Ejection fraction and wall motion.. The study quality was technically adequate. Comparison is made with the echocardiogram of 12/26/2024. The patient was in sinus bradycardia with heart rates between 49-58 bpm during the exam. Left Ventricle: The left ventricle is borderline dilated. There is normal left ventricular wall thickness. The estimated left ventricular end diastolic volume is 153 ml. Left ventricular ejection fraction is estimated to be 30%. Apical akinesis severe anterior hypokinesis. Pericardium/ Pleura There is no pericardial effusion. There is no pleural effusion. MMode/2D Measurements & Calculations LVIDd: 5.4 cm LVIDs: 4.5 cm FS: 17.0 % EPSS: 1.1 cm IVSd: 0.79 cm LVPWd: 0.82 cm LV schwartz. diameter/BSA (cm/m^2): 2.9 LV sys. diameter/BSA (cm/m^2): 2.4 Reading Physician:04:34 PM
[2025-03-14] MEDS: CREON 2 EACH PO ×2 (08:24→12:46)
[2025-03-14] MEDS: OXYBUTYNIN 5 MG ER TAB 10 MG PO (08:33)
[2025-03-14] MEDS: MAGNESIUM CHLORIDE 64 MG TABLET PO (08:33)
[2025-03-14 08:34] VITALS: BP 140/61; PULSE 50
[2025-03-14] MEDS: lisinopriL 5 MG TABLET PO (08:34)
[2025-03-14] MEDS: CLOPIDOGREL 75 MG TABLET PO (08:34)
[2025-03-14] MEDS: HEPARIN 5,000 UNIT/ML VIAL 5000 UNIT SUBCUT (08:38)
[2025-03-14] MEDS: INSULIN LISPRO 100 UNIT/ML 3ML VIAL SUBCUT ×3 (08:40→12:44)
[2025-03-14 09:03] VITALS: BP 148/73; PULSE 73; RESP 18; TEMP 36.2; O2SAT 100
--- NOTE | 2025-03-14 11:46 | CM.DPC ---
DCP Discharge Home Per MD, pt to have Echo today and then plan of discharge home with spouse and outpt f/u and no identified barriers to discharge. Per RN, pt with some sundowning/confusion at night time but no concerns noted. SW alerted TCM group about likely pt discharge home today and outpt f/u with PCP Dr. Ramos. Plan: SW to follow for plan of discharge home today after Echo via spouse POV and they declined any needs at this time. CALLUM Marr
[2025-03-14 13:00] VITALS: BP 139/66; PULSE 58; RESP 15; TEMP 36.5; O2SAT 96
--- NOTE | 2025-03-14 16:58 | P.DS_ITS ---
History of Present Illness History of Present Illness Date Patient Seen: 03/14/25 Chief complaint: Angina Narrative: From H&P: 70-year-old male with past medical history of dementia, coronary disease status post 7 stents, paroxysmal atrial fibrillation, type 1 diabetes, hypertension, lipidemia, cholecystectomy September 2024 at [facility] presents with complaint of abdominal pain. Per the patient's report the patient had some epigastric pain and lower chest pain. The patient states that he took 2 nitros which completely resolved his symptoms. However the patient woke up around 1 AM and started to have the pain again. The patient took 4 baby aspirin and 1 nitroglycerin and now the pain has resolved. Otherwise the patient denies any recent nausea vomiting, diarrhea, fever, chills, shortness of breath or syncope. In the emergency room, the patient was hemodynamically stable. Tropes were negative x 2. EKG shows no sign of acute ischemia. Lipase however was elevated at 2587. Bilirubin normal AST [address] Of note CT scan shows no clear sign of acute pancreatitis though right upper quadrant abdominal cell shows so no dilatation of the bile duct and shows status post cholecystectomy. Our ER physician request admission for acute pancreatitis. Of note patient denies any use of alcohol. Discharge Providers Provider Date of admission: 03/12/25 06:53 Discharge Date: 03/14/25 Primary care physician: Teresa Ramos DO Consults: None. Discharge provider: Ger Valencia MD Summary Hospital Course Discharge Diagnosis: 1. Acute pancreatitis, improved. Abdominal pelvic CT revealed a normally enhancing pancreas without significant peripancreatic edema. Abdominal ultrasound revealed mild hepatomegaly and diffusely increased hepatic echogenicity. Small amount of fluid in the gallbladder fossa. MRCP revealed fluid collection in the gallbladder fossa measuring up to 3.5 cm felt to represent a chronic biloma or seroma. There is no acute peripancreatic fluid collection. No choledocholith noted. Labs revealed an AST of 286, ALT of 172, alk-phos 69, bilirubin of 0.6. Troponin was negative x2. Lipase was 2587. Discussed with the patient and his that he likely can not tolerate combination of fatty meal, alcohol, and not taking his pancreatic enzymes. T 2. Perinephric fat stranding seen on imaging, stable. Will obtain a UA for completeness sake. He is not endorsing any urinary symptoms. 3. Transaminitis, stable. Will repeat LFTs tomorrow. 4. Coronary artery disease, stable. Troponins were negative in the emergency department. He does have some mild bradycardia today, but normal blood pressures and he is asymptomatic. Will monitor. 5. Diabetes mellitus type 1, stable. Continue monitoring blood sugars. Continue insulin. 6. Hyperlipidemia, stable. Resume statin once he is discharged 7. BPH, stable. Continue usual home medications 8. Dementia, stable. Continue usual home medication 9. Nonsustained ventricular tachycardia on March 13, improved. Hospital Course: The patient was admitted for pancreatitis. This follows a history of previous pancreatitis and placement of a pancreatic stent in's in the last year. The patient did have some dietary indiscretions which precipitated this event per their report. He did well in the hospital with bowel rest and was able to advance his diet. He did have 1 run of ventricular tachycardia. His previous echo was reviewed with an EF of 35%. He was followed by Dr. Troncoso of Cardiology at [facility]. A repeat limited echo revealed EF of 30% with apical akinesis and severe anterior hypokinesis. The patient was bradycardic, this prohibited the addition of the beta brenda to his medical regimen. He was felt to be stable for discharge and Dr. Troncoso was apprised of his ventricular tachycardia by electronic message as well as his repeat echo EF. We will attempt to expedite cardiology follow up. Of note, he was no formal GI follow up scheduled. He was seen at [facility] once. Status at Discharge Cognitive/behavioral status at discharge: at baseline, confused Functional status at discharge: independent ambulation Overall status at discharge: patient is back to baseline Time Spent with Patient Time spent: Greater than 30 minutes Exam Vital Signs (past 8 hours): - 03/14/25 09:03 03/14/25 13:00 Temperature 97.2 F L 97.7 F Pulse Rate 73 58 L Respiratory Rate 18 15 Blood Pressure 148/73 H 139/66 Pulse Oximetry 100 96 Oxygen Delivery Method Room Air Oxygen Flow Rate 0 Narrative Exam Narrative: NAD, alert and oriented. Fluent speech. Lungs are clear, normal rate and effort. Heart is regular, no murmur gallop or rub. Abdomen is soft, non distended. Extremities are free of edema. Objective ECG Impression: Intervals [place] Rate: 48 P: 57 DE: 146 QRS: -82 QRSD: 144 T: 7 QT: 484 QTc: 432 Interpretive Statements Sinus bradycardia Left axis deviation Right bundle branch block Possible Anteroseptal infarct , age undetermined Imaging Echo: Radiologist's impression: Left ventricular ejection fraction is estimated to be 30%. Apical akinesis, severe anterior hypokinesis Procedure: A two-dimensional transthoracic echocardiogram with color flow and Doppler was performed in limited views only to assess Ejection fraction and wall motion.. The study quality was technically adequate. Comparison is made with the echocardiogram of 12/26/2024. The patient was in sinus bradycardia with heart rates between 49-58 bpm during the exam. Left Ventricle: The left ventricle is borderline dilated. There is normal left ventricular wall thickness. The estimated left ventricular end diastolic volume is 153 ml. Left ventricular ejection fraction is estimated to be 30%. Apical akinesis severe anterior hypokinesis. Pericardium/ Pleura There is no pericardial effusion. There is no pleural effusion. Multiple studies:: Radiologist's impression: Abdomen MRI/MRCP: 1. Status post cholecystectomy. Fluid collection again seen in the gallbladder fossa measuring up to 3.5 cm, mildly decreased in size when compared to the CT from 11/23/2024. This finding again most likely represents a chronic biloma or seroma. 2. Pancreas enhances normally. No acute peripancreatic collection. 3. Biliary ducts are within normal limits in the post cholecystectomy state. No choledocholith. 4. Bilateral perinephric stranding is nonspecific and may be chronic although ascending infection is not entirely excluded and correlation with urinalysis is recommended. Kidneys enhance normally. No hydronephrosis Abdomen ultrasound: 1. Mild hepatomegaly and diffusely increased hepatic echogenicity are nonspecific, but most commonly encountered in the setting of hepatic steatosis. However, other causes of hepatocellular disease are not excluded. Recommend clinical correlation. 2. Status post cholecystectomy. Small amount of fluid in the gallbladder fossa is better seen on CT. Abdomen pelvis CT: 1. Fluid collection again seen in the gallbladder fossa, which has mildly decreased in size when compared to the CT from 11/23/2024 is likely a small chronic biloma or seroma. Abscess is considered less likely. 2. Pancreas enhances normally without significant peripancreatic edema. 3. Right inguinal hernia contains a short segment of the appendix without signs acute appendicitis or bowel obstruction. Chest x-ray: No acute cardiopulmonary abnormality is seen. Labs 03/13/25 06:10 03/14/25 05:40 Labs: Laboratory Results - last 24 hr 03/14/25 05:40 Sodium 134 L Potassium 3.8 Chloride 102 Carbon Dioxide 29 BUN 18 Creatinine 0.74 Estimated GFR > 60 BUN/Creatinine Ratio 24.3 H Glucose 106 H Calcium 8.3 L Magnesium 1.9 Troponin I < 0.012 [facility] Medical History Accidental overdose Arm contusion Abrasions of multiple sites Inguinal hernia of right side without obstruction or gangrene Hypertension Type 1 diabetes mellitus GERD (gastroesophageal reflux disease) Elevated LFTs Iron deficiency anemia History of UTI BPH w urinary obs/LUTS Urinary incontinence without sensory awareness Urinary incontinence due to severe physical disability Sleep apnea Ankle fracture, right Mumps Measles Chicken pox History of urinary incontinence Fecal incontinence Hemorrhoid Colitis Diastolic heart failure Hyperlipidemia Benign essential HTN Type 2 diabetes mellitus without complication, with long-term current use of insulin (~2005) Dementia Recurrent UTI Diabetes mellitus, insulin dependent (IDDM), controlled CAD (coronary artery disease) Surgical History Anesthesia History of cataract removal with insertion of prosthetic lens (~2021) H/O heart artery stent History of heart artery stent Urethral diverticulum Family History Mother Polycystic kidney History of heart disease Hypertension Father Coronary artery disease Brother Diabetes mellitus History of heart disease Polycystic kidney Social History marital status: household members: spouse lives independently: Yes occupational status: previously employed Smoking Status: Never smoker alcohol intake: current Discharge Assessment & Plan Assessment and Plan Assessment: 1. Pancreatitis, improved. 2. Run of VT, nonsustained. Resolved. 3. Chronic systolic dysfunction with evidence of CAD on echo. Plan of Treatment: Discharge home, no medication changes. The patient was not a candidate for the addition of beta blockers given bradycardia. Dr. Troncoso will be apprised of his repeat echo and VTE episode. Patient will follow a low-fat diet. Discharge Plan Discharge Plan Patient Disposition: Home Provider Discharge Comment: Stable for discharge Discharge orders & Medications Prescriptions: Continued nitroglycerin [Nitrostat] 0.4 mg tablet, sublingual 0.4 mg sublingual Q5M PRN (Reason: Chest Pain) Rx Instructions: do not exceed 3 doses per episode cyanocobalamin (vitamin B-12) 1,000 mcg capsule 1,000 mcg PO DAILY tamsulosin 0.4 mg capsule 0.4 mg PO BEDTIME Qty: 90 3RF memantine 5 mg tablet 5 mg PO QPM Qty: 90 3RF donepezil 10 mg tablet 10 mg PO BEDTIME Qty: 90 3RF insulin aspart U-100 [Novolog U-100 Insulin aspart] 100 unit/mL solution 1 sliding scale dose SUBCUT USEASDIRECTD Rx Instructions: use 160 units every 3 days via insulin pump (DME) Contour Next Test Strips Strip See Rx Instructions .Route Rx Instructions: As directed Jardiance 10 mg tablet 10 mg PO QAM clopidogrel 75 mg tablet 75 mg PO DAILY cholecalciferol (vitamin D3) [Vitamin D3] 25 mcg (1,000 unit) capsule 50 mcg PO DAILY Baqsimi 3 mg/actuation spray,non-aerosol 3 mg intranasal ONCE PRN (Reason: Hypoglycemia) Rx Instructions: as a single dose magnesium chloride 64 mg tablet extended release 64 mg PO BID rosuvastatin 5 mg tablet 5 mg PO Q OTHER DAY metformin 1,000 mg tablet 500 mg PO BID multivitamin with iron Tablet 1 tab PO DAILY lisinopril 5 mg tablet 5 mg PO DAILY Florajen Digestion 15 billion cell capsule 1 cap PO DAILY omega 6-opx-pyj-fish oil [Fish Oil] 1,000 mg (120 mg-180 mg) capsule 1 cap PO DAILY ascorbic acid (vitamin C) [Vitamin C] 500 mg tablet 500 mg PO DAILY mirabegron [Myrbetriq] 50 mg tablet extended release 24 hr 50 mg PO DAILY Creon 12,000-38,000 -60,000 unit capsule,delayed release(DR/EC) See Rx Instructions .ROUTE .COMPLEX Rx Instructions: Creon 12,000-38,000-60,000 capsules: take 2 capsules po three times daily with meals. Follow up/Referrals: Teresa Ramos DO [Primary Care Provider] - Discharge Health Status Multidrug resistant organism: No MDRO Diet/Activity/Treatments Diet: Low-fat Visit Report/Discharge Packet Instructions: DI for Pancreatitis Stand Alone Forms: Patient Portal/API Discharge Data Primary Care Provider: Teresa Ramos
--- NOTE | 2025-03-14 19:21 | PC.NURSE ---
Patient is A&OX2, forgetful but very pleasant and cooperative. He is bradycardic on telemetry and a.m. metoprolol held. He awaits echo today and they arrived at 1520 to do test at bedside. reviewing results and cleared patient for discharge home this evening. His is at bedside and acknowledges understanding of discharge medications and instructions. He is escorted to private vehicle with SENIOR RADIATION PROTECTION TECHNICIAN and all of his belongings and home meds at 1730 this evening.
== END 2025-03-14 17:29 | disposition home or self-care (01) | DRG 439 ==
LOC: ED 03:11 → AC 06:54
PROVIDERS: Family Medicine; Hospitalist; Pharmacist Pharmacist Clinician (PhC)/ Clinical Pharmacy Specialist; Admitting Provider Internal Medicine; Emergency Provider Family Medicine; Family Provider Physician Assistant Medical; PCP Family Medicine; Referring Provider Family Medicine; Visit Provider Internal Medicine
DX: K85.90 Acute pancreatitis without necrosis or infection, unspecified (principal); I47.20 Ventricular tachycardia, unspecified; I25.10 Atherosclerotic heart disease of native coronary artery without angina pectoris; F03.90 Unspecified dementia, unspecified severity, without behavioral disturbance, psychotic disturbance, mood disturbance, and anxiety; E10.9 Type 1 diabetes mellitus without complications; E78.5 Hyperlipidemia, unspecified; N40.0 Benign prostatic hyperplasia without lower urinary tract symptoms; K86.89 Other specified diseases of pancreas; R00.1 Bradycardia, unspecified; R93.429 Abnormal radiologic findings on diagnostic imaging of unspecified kidney; R74.01 Elevation of levels of liver transaminase levels; I10 Essential (primary) hypertension; Z79.02 Long term (current) use of antithrombotics/antiplatelets; Z95.5 Presence of coronary angioplasty implant and graft; Z98.890 Other specified postprocedural states; Z90.49 Acquired absence of other specified parts of digestive tract; I25.2 Old myocardial infarction
CPT/HCPCS: 36415; 71045; 74177; 74183; 76705; 80048; 80053; 81001; 82550; 82962; 83036; 83690; 83735; 83880; 84484; 85025; 85610; 85730; 93005; 93307; 96374; 96375; 99284; J1171; J1644; J1815; J2270; J2405; Q9957; Q9967

== ENCOUNTER → 2025-05-03 11:17 | Outpatient (CLI) | payer MEDICARE, OTHER, SELFPAY ==
[2025-03-12 07:20] VITALS: BMI 22.9
[2025-05-03 12:09] LABS: Add Manual Diff / Slide Review NO; Hematocrit 45.4 % (41-53); Hemoglobin 15.5 g/dL (13.5-17.5); Lymphocytes Absolute Auto 1100 /uL (1100-4500); Mean Corpuscular HGB Conc 34.2 % (30-36); Mean Corpuscular Hemoglobin 31.5 PG (26-34); Mean Corpuscular Volume 92.2 fL (80-100); Platelet Count 203 X10^3/uL (150-400)
[2025-05-03 12:22] LABS: Hemoglobin A1C% w Est Avg Glu 6.5 % (4.0-6.0)
[2025-05-03 12:27] LABS: HEMOLYSIS < 15 (0-50); Iron 94 ug/dL (49-181)
[2025-05-03 12:35] LABS: Alanine Aminotransferase 80 IU/L (<50); Albumin 3.8 g/dL (3.5-5.0); Albumin Globulin Ratio 2.0 (1.0-2.8); Alkaline Phosphatase 56 U/L (38-126); Blood Urea Nitrogen 19 mg/dL (9-20); Calcium 9.2 mg/dL (8.4-10.2); Carbon Dioxide 29 mmol/L (22-32); Chloride 101 mmol/L (98-107); Estimated Glomerular Filt Rate > 60 mL/min (>60); Globulin 1.9 g/dL (1.7-4.1); Glucose 111 mg/dL (70-99); HEMOLYSIS 41 (0-50); Potassium 5.0 mmol/L (3.4-5.1); Sodium 135 mmol/L (137-145); Total Protein 5.7 g/dL (6.3-8.2)
[2025-05-03 12:43] LABS: Percent Iron Saturation 30 % (20-50); Total Iron Binding Capacity 315 ug/dL (261-462); Transferrin 252 mg/dL (206-381)
== END ==
PROVIDERS: PCP Family Medicine; Referring Provider Family Medicine; Visit Provider Family Medicine
DX: E11.9 Type 2 diabetes mellitus without complications (principal); I50.32 Chronic diastolic (congestive) heart failure; R53.1 Weakness; M79.89 Other specified soft tissue disorders; Z86.39 Personal history of other endocrine, nutritional and metabolic disease; Z79.4 Long term (current) use of insulin
CPT/HCPCS: 36415; 80053; 83036; 83540; 83550; 85025

== ENCOUNTER → 2025-08-06 09:39 | Outpatient (CLI) | payer MEDICARE, OTHER, SELFPAY ==
[2025-03-12 07:20] VITALS: BMI 22.9
--- NOTE | 2025-08-06 09:41 | DI.MRI.S_ITS ---
PROCEDURE: MR LUMBAR SPINE WO CON INDICATIONS: Worsenend numbness in both LE and new difficulty walking TECHNIQUE: Noncontrast sagittal T1 spin echo and T2 fast echo, sagittal STIR, and T2 fast spin echo through the lumbar spine. In cases with scoliosis, additional coronal T2 fast spin echo may be performed. COMPARISON: None. FINDINGS: Image quality: Excellent. Alignment and Curvature: There is normal bony alignment. Bone Marrow: Marrow is of normal overall signal. No acute vertebral body compression fractures. Spinal Cord: Conus medullaris terminates at the L1-L2 level. Visualized cord demonstrates normal signal and size. Paraspinous Soft Tissues: No paravertebral masses. T12-L1: Normal appearance. L1-L2: Disc desiccation and mild facet arthropathy. No central canal or neural foraminal stenosis. L2-L3: Disc desiccation and mild facet arthropathy. No central canal or neural foraminal stenosis. L3-L4: Disc desiccation and minimal disc bulge. Facet arthropathy. No significant central canal or neural foraminal stenosis. L4-L5: Disc desiccation and minimal disc bulge. Facet arthropathy. No significant central canal or neural foraminal stenosis. L5-S1: Facet arthropathy. No central canal or neural foraminal stenosis. IMPRESSION: Mild degenerative changes of the lumbar spine without significant central canal or neural foraminal stenosis. Approved by: Yusuf Naylor M.D. on 08/07/2025 at 8:34
== END ==
LOC: MRI 09:40
PROVIDERS: PCP Family Medicine; Referring Provider Family Medicine; Visit Provider Family Medicine
DX: R20.0 Anesthesia of skin (principal); R29.6 Repeated falls; M47.816 Spondylosis without myelopathy or radiculopathy, lumbar region; M47.817 Spondylosis without myelopathy or radiculopathy, lumbosacral region
CPT/HCPCS: 72148

== ENCOUNTER → 2025-08-11 09:08 | Outpatient (CLI) | payer MEDICARE, OTHER, SELFPAY ==
[2025-03-12 07:20] VITALS: BMI 22.9
[2025-08-11 11:49] LABS: Cholesterol 135 mg/dL (140-199); HDL Cholesterol 63 mg/dL (40-60); Triglycerides 70 mg/dL (35-150)
[2025-08-11 12:01] LABS: Hemoglobin A1C% w Est Avg Glu 7.2 % (4.0-6.0)
[2025-08-11 13:38] LABS: Magnesium 1.7 mg/dL (1.6-2.3)
[2025-08-11 14:13] LABS: Ferritin 69 ng/mL (18-464)
[2025-08-11 14:28] LABS: Vitamin B12 856 pg/mL (239-931)
== END ==
PROVIDERS: PCP Family Medicine; Referring Provider Family Medicine; Visit Provider Family Medicine
DX: E11.9 Type 2 diabetes mellitus without complications (principal); Z79.4 Long term (current) use of insulin; E78.49 Other hyperlipidemia; I10 Essential (primary) hypertension; R29.898 Other symptoms and signs involving the musculoskeletal system; E53.8 Deficiency of other specified B group vitamins; D50.9 Iron deficiency anemia, unspecified; E61.2 Magnesium deficiency
CPT/HCPCS: 36415; 80061; 82607; 82728; 83036; 83735

== ENCOUNTER → 2025-08-11 12:42 | Outpatient (CLI) | payer MEDICARE, OTHER, SELFPAY ==
[2025-03-12 07:20] VITALS: BMI 22.9
--- NOTE | 2025-08-11 12:44 | DI.US.S_ITS ---
PROCEDURE: US ARTERIAL DUPLEX LE BI INDICATIONS: hx failed angio to L leg, prev stents; worsening gait TECHNIQUE: Color and pulse Doppler interrogation was performed of both lower extremity arterial systems, with image documentation. COMPARISON: None. FINDINGS: Right lower extremity: Common femoral artery: 68 cm/sec, with triphasic flow. Deep femoral artery: 37 cm/sec, with triphasic flow. Proximal superficial femoral artery: 42 cm/sec, with triphasic flow. Mid superficial femoral artery: 43 cm/sec, with triphasic flow. Distal superficial femoral artery: 39 cm/sec, with triphasic flow. Popliteal artery: 60 cm/sec, with triphasic flow. Posterior tibial artery: 31 cm/sec, with nonvisualized flow distally. Anterior tibial artery/dorsalis pedis: 7 cm/sec, with monophasic flow. Herrera-scale imaging description: Multifocal atherosclerotic disease in the femoral artery, popliteal artery and lower leg vessels. Left lower extremity: Common femoral artery: 50 cm/sec, with biphasic flow and spectral broadening. Deep femoral artery: 30 cm/sec, with biphasic flow. Proximal superficial femoral artery: 52 cm/sec, with biphasic flow. Mid superficial femoral artery: 70 cm/sec, with biphasic flow. Distal superficial femoral artery: 14 cm/sec, with biphasic flow distal to the bypass anastamosis. Popliteal artery: 15 cm/sec, with monophasic flow. Posterior tibial artery: 31 cm/sec, with biphasic distal flow. Anterior tibial artery/dorsalis pedis: 41 cm/sec, with biphasic flow. Herrera-scale imaging description: Severe atherosclerotic disease within the left popliteal artery and proximal posterior tibial artery. There is AA distal femoral popliteal bypass which has velocity of 46 cm/second proximally with multiphasic waveform. IMPRESSION: 1. Changes of distal femoral to popliteal bypass for prior atherosclerotic disease with patent bypass anastomosis. 2. Decreased velocities within the left lower extremity arterial system from the common femoral artery distal with biphasic flow, this is concerning for more proximal stenosis, consider evaluation of the pelvic vasculature. 3. Decreased peak systolic velocities within the right lower leg arteries concerning for it least moderate to severe atherosclerotic disease and poor reconstitution. Dictated by: Ez Ordonez M.D. on 08/11/2025 at 14:22 Approved by: Ez Ordonez M.D. on 08/11/2025 at 14:34
== END ==
PROVIDERS: PCP Family Medicine; Referring Provider Family Medicine; Visit Provider Family Medicine
DX: I70.201 Unspecified atherosclerosis of native arteries of extremities, right leg (principal); I70.202 Unspecified atherosclerosis of native arteries of extremities, left leg; M79.605 Pain in left leg; R29.898 Other symptoms and signs involving the musculoskeletal system; M79.89 Other specified soft tissue disorders; R26.81 Unsteadiness on feet; R26.9 Unspecified abnormalities of gait and mobility; E11.9 Type 2 diabetes mellitus without complications; E53.8 Deficiency of other specified B group vitamins; E78.49 Other hyperlipidemia; Z79.4 Long term (current) use of insulin; I10 Essential (primary) hypertension; D50.9 Iron deficiency anemia, unspecified; Z98.62 Peripheral vascular angioplasty status; E61.2 Magnesium deficiency
CPT/HCPCS: 36415; 80061; 82607; 82728; 83036; 83735; 93925

== ENCOUNTER → 2025-08-12 11:40 | Outpatient (CLI) | payer MEDICARE, OTHER, SELFPAY ==
[2025-03-12 07:20] VITALS: BMI 22.9
--- NOTE | 2025-08-12 11:43 | DI.CT.S_ITS ---
PROCEDURE: CT ANGIO ABD AORTA RUNOFF INDICATIONS: Left lower extremity pain TECHNIQUE: After the administration of intravenous contrast, 2.5 mm sections acquired from T12 to the feet, with optional delayed image acquisition from the knees to the feet. 3-dimensional maximum intensity projection (MIP) coronal and sagittal reformats, and/or 3-dimensional volume rendering reformatting was then performed. For radiation dose reduction, the following was used: automated exposure control. COMPARISON: None. FINDINGS: Image Quality: Diagnostic. Abdominal aorta: Significant atherosclerotic calcifications. Patent and normal in caliber without significant stenosis. Splanchnic vessels: Patent. Right lower extremity: Dense atherosclerotic calcifications. Normal three- vessel runoff without high-grade stenosis. Left lower extremity: Dense atherosclerotic calcifications. 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 There appears to be a femoral popliteal bypass with occlusion of the [place] vessel. The arteries distal to the bypass appear occluded versus slow flow without contrast opacification. Subcutaneous edema. Lower Chest: No significant findings. ABDOMEN: Liver: No solid mass. Gallbladder: Surgically absent. Small fluid again seen within the gallbladder fossa. Biliary ducts: No biliary dilation. Pancreas: No ductal dilation. Spleen: Size is within normal limits. Adrenal Glands: No adrenal nodules. Kidneys and Ureters: No hydronephrosis. No solid mass. No complex renal cystic lesion which requires follow up. Stomach and Bowel: Normal colonic caliber, without significant wall thickening. Prominent stool burden. Normal appendix which extends into the right inguinal hernia. Peritoneum: No abnormal intraperitoneal fluid. No free air. Ventral Wall: No hernia. Abdominal Nodes: No retroperitoneal or mesenteric adenopathy by size criteria. Vessels: Aorta and inferior vena cava are normal in size. PELVIS: Pelvic Organs: Unremarkable. Bladder: Unremarkable. Pelvic Nodes: No enlarged lymph nodes. Miscellaneous: Bilateral inguinal hernias containing fat. The right inguinal hernia contains the appendix and trace fluid. Bones: No aggressive osseous abnormality. IMPRESSION: 1. Dense atherosclerotic calcifications throughout. Aorta is patent and normal in caliber. 2. There appears to be a left popliteal bypass with [place] artery completely occluded. Distal to the bypass, there is minimal opacification within the distal popliteal artery. The arteries of the calf are not well opacified, this may be occlusion versus slow flow. 3. 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 4. Dense atherosclerotic calcifications on the right without significant stenosis. 5. Please see above for additional findings. Dictated by: Yusuf Naylor M.D. on 08/12/2025 at 13:01 Approved by: Yusuf Naylor M.D. on 08/12/2025 at 13:08
[2025-08-12 12:05] LABS: Estimated Glomerular Filt Rate > 60 mL/min (>60)
== END ==
PROVIDERS: PCP Family Medicine; Referring Provider Family Medicine; Visit Provider Family Medicine
DX: I70.203 Unspecified atherosclerosis of native arteries of extremities, bilateral legs (principal); I70.92 Chronic total occlusion of artery of the extremities; I70.0 Atherosclerosis of aorta; M79.605 Pain in left leg; M79.89 Other specified soft tissue disorders; K40.20 Bilateral inguinal hernia, without obstruction or gangrene, not specified as recurrent; R29.898 Other symptoms and signs involving the musculoskeletal system; R26.81 Unsteadiness on feet; R26.9 Unspecified abnormalities of gait and mobility; Z98.62 Peripheral vascular angioplasty status; Z90.49 Acquired absence of other specified parts of digestive tract
CPT/HCPCS: 36415; 75635; 82565; Q9967